=== PATIENT | female | born 1965 | race Caucasian/White ===

== ENCOUNTER 2023-02-18 08:34 | Outpatient (OUT) | payer OTHER, SELFPAY ==
[2023-02-18 09:07] LABS: Basophils Absolute Auto 0.1 10^3/uL (0.0-0.1); Basophils Percent Auto 1.4 % (0.2-2.0); Eosinophils Absolute Auto 0.3 10^3/uL (0.0-0.7); Hematocrit 37.1 % (36.0-48.0); Hemoglobin 11.5 g/dL (12.0-16.0); Immature Granulocytes Abs Auto 0.03 10^3/uL (0.00-0.03); Immature Granulocytes Pct Auto 0.4 % (0.0-0.5); Lymphocytes Absolute Auto 2.4 10^3/uL (1.2-3.8); Lymphocytes Percent Auto 32.1 % (20.5-60.0); Mean Corpuscular Hemoglobin 24.7 pg (26.7-34.0); Mean Corpuscular Volume 79.6 fL (81.0-99.0); Mean Platelet Volume 9.9 fL (9.5-13.5); Monocytes Absolute Auto 0.5 10^3/uL (0.3-0.8); Monocytes Percent Auto 6.7 % (1.7-12.0); Neutrophils Absolute Auto 4.1 10^3/uL (1.4-6.5); Neutrophils Percent Auto 55.4 % (43.0-75.0); Platelet Count 299 10^3/uL (150-450); Red Blood Count 4.66 10^6/uL (4.20-5.40); Red Cell Distribution Width 14.8 % (11.0-15.0); White Blood Count 7.3 10^3/uL (4.0-11.0)
[2023-02-18 09:17] LABS: Estimated Average Glucose 143 mg/dL; Glycohemoglobin A1C 6.6 % (4.5-6.2)
[2023-02-18 10:19] LABS: Alanine Aminotransferase 46 U/L (14-59); Albumin Globulin Ratio 1.1; Albumin Level 3.8 g/dL (3.4-5.0); Alkaline Phosphatase 74 U/L (46-116); Anion Gap 14.9; Aspartate Amino Transferase 27 U/L (15-37); BUN Creatinine Ratio 16.7; Bilirubin Total 0.3 mg/dL (0.2-1.0); Calcium 9.2 mg/dL (8.5-10.1); Carbon Dioxide 26.1 mmol/L (21.0-32.0); Chloride 104 mmol/L (98-107); Chol HDL Ratio 5.2; Cholesterol 192 mg/dL (<=200); Estimated GFR (African America >60 (>=60); Estimated GFR (Non-African Ame >60 (>=60); Free T3 2.81 pg/mL (2.18-3.98); Globulin 3.4 g/dL; Glucose 132 mg/dL (74-106); HDL Cholesterol 37 mg/dL (40-60); Sodium 141 mmol/L (136-145); Total Protein 7.2 g/dL (6.4-8.2); Triglycerides 110 mg/dL (<=150)
== END 2023-02-18 08:35 | disposition home or self-care (01) ==
PROVIDERS: PCP Family Medicine; Visit Provider Family Medicine
DX: Z00.00 Encounter for general adult medical examination without abnormal findings (principal)
CPT/HCPCS: 36415; 80053; 80061; 82306; 83036; 84436; 84443; 84481; 85025

== ENCOUNTER 2023-09-16 07:52 | Outpatient (OUT) | payer OTHER, SELFPAY ==
[2023-09-16 08:45] LABS: Basophils Absolute Auto 0.1 10^3/uL (0.0-0.1); Basophils Percent Auto 1.3 % (0.2-2.0); Eosinophils Absolute Auto 0.2 10^3/uL (0.0-0.7); Eosinophils Percent Auto 2.5 % (0.9-7.0); Hematocrit 39.4 % (36.0-48.0); Hemoglobin 11.6 g/dL (12.0-16.0); Immature Granulocytes Abs Auto 0.03 10^3/uL (0.00-0.03); Immature Granulocytes Pct Auto 0.5 % (0.0-0.5); Lymphocytes Absolute Auto 1.8 10^3/uL (1.2-3.8); Lymphocytes Percent Auto 29.6 % (20.5-60.0); Mean Corpuscular HGB Conc 29.4 g/dL (29.9-35.2); Mean Corpuscular Hemoglobin 23.7 pg (26.7-34.0); Mean Corpuscular Volume 80.4 fL (81.0-99.0); Mean Platelet Volume 10.6 fL (9.5-13.5); Monocytes Absolute Auto 0.6 10^3/uL (0.3-0.8); Monocytes Percent Auto 9.2 % (1.7-12.0); Neutrophils Absolute Auto 3.4 10^3/uL (1.4-6.5); Neutrophils Percent Auto 56.9 % (43.0-75.0); Platelet Count 224 10^3/uL (150-450); Red Cell Distribution Width 15.3 % (11.0-15.0)
[2023-09-16 08:46] LABS: Estimated Average Glucose 180 mg/dL; Glycohemoglobin A1C 7.9 % (4.5-6.2)
[2023-09-16 08:58] LABS: Alanine Aminotransferase 104 U/L (14-59); Albumin Globulin Ratio 0.9; Albumin Level 3.6 g/dL (3.4-5.0); Alkaline Phosphatase 155 U/L (46-116); Anion Gap 15.2; Aspartate Amino Transferase 123 U/L (15-37); BUN Creatinine Ratio 14.6; Bilirubin Total 0.4 mg/dL (0.2-1.0); Calcium 9.5 mg/dL (8.5-10.1); Carbon Dioxide 25.5 mmol/L (21.0-32.0); Chloride 102 mmol/L (98-107); Cholesterol 175 mg/dL (<=200); Estimated GFR (African America >60 (>=60); Estimated GFR (Non-African Ame >60 (>=60); Free T3 2.03 pg/mL (2.18-3.98); Globulin 3.9 g/dL; Glucose 219 mg/dL (74-106); HDL Cholesterol 25 mg/dL (40-60); Potassium 3.7 mmol/L (3.5-5.1); Sodium 139 mmol/L (136-145); Thyroid Stimulating Hormone 5.614 uIU/mL (0.358-3.740); Total Protein 7.5 g/dL (6.4-8.2); Triglycerides 202 mg/dL (<=150); VLDL CHOLESTEROL 40.4 mg/dL
== END 2023-09-16 07:53 | disposition home or self-care (01) ==
LOC: LAB 07:53
PROVIDERS: PCP Family Medicine; Visit Provider Family Medicine
DX: Z00.00 Encounter for general adult medical examination without abnormal findings (principal)
CPT/HCPCS: 36415; 80053; 80061; 82306; 83036; 83540; 84436; 84443; 84481; 85025

== ENCOUNTER 2023-10-03 10:03 | Outpatient (OUT) | payer OTHER, SELFPAY ==
--- NOTE | 2023-10-03 10:06 | US_ITS ---
The [address] [address] Patient Name: JUSTIN PUTNAM MRN: [id number] date: 1965 Sex: F Assigned Patient Location: US Current Patient Location: US Accession/Order Number: [id number] Exam Date: 10/03/2023 10:07 Report Date: 10/03/2023 12:22 At the request of: AMADO WRIGHT Procedure: US right upper quadrant EXAMINATION: US right upper quadrant HISTORY: Abnormal Findings Of Blood Chemistry R79.89 ; elevated liver function tests COMPARISON: No relevant comparison available. TECHNIQUE: CT abdomen 06/26/2019 FINDINGS: LIVER: Increased echogenicity suggestive of fatty infiltration. 3.9 cm lesion within anterior right hepatic lobe suspected represent a hemangioma; also seen on prior studies. PORTAL VEIN: Duplex Doppler demonstrates normal hepatopetal flow pattern with flow velocity averaging 35 cm/s. GALLBLADDER: Contains several prominent and a few small stones, largest is 2.3 cm. Irregular appearance of the wall with wall thickness at upper limits of normal, 3 mm. Negative sonographic Hernandez's sign. BILIARY: No abnormal dilation or stones seen within the duct. Common bile duct diameter is within normal limits. PANCREASE: No visible mass, abnormal atrophy, or duct dilation. KIDNEY: No hydronephrosis. No visible mass or stones. Size: 10.8 x 5.4 x 5.0 cm US/US right upper quadrant IMPRESSION: 1. Cholelithiasis without evidence of acute cholecystitis. 2. Suspect mild fatty infiltration of liver. Stable lesion favoring a hemangioma. Electronically authenticated by: CHELSIE ENGLAND Date: 10/03/2023 12:22
--- OUTSIDE RECORDS SUMMARY | 2023-10-03 10:22 | XMS_ITS | CCD ---
Author Organization [facility] Care Team Providers Care Sub Prior Name Role Phone DR AMADO TERRELL Attending Unavailable ADRIANA, DR FISCHER Primary Care Unavailable ADRIANA, DR FISCHER Admitting Unavailable ADRIANA, DR FISCHER Consulting Unavailable ADRIANA, DR FISCHER Primary Care Unavailable ADRIANA, DR FISCHER Admitting Unavailable ADRIANA, DR FISCHER Attending Unavailable ADRIANA, DR FISCHER Consulting Unavailable ADRIANA, DR FISCHER Primary Care Unavailable ADRIANA, DR FISCHER Admitting Unavailable ADRIANA, DR FISCHER Attending Unavailable MD Amado Terrell Primary Care Provider DO Elio Zamudio Attending Provider [phone] Amado Terrell Primary Care Unavailable Elio Zamudio Attending Unavailable Elio Zamudio Admitting Unavailable Maxime TRINH Attending Unavailable Amado Terrell Referring Unavailable Allergies Allergy Classification Reported Allergen(s) Allergy Type Date of Onset Reaction(s) Facility (2 sources) Aspirin; Translations: [aspirin] Drug Allergy 06-19-2014 [facility] Repository Problems Active Problems Problem Classification Problem Date Documented Date Episodic/Chronic Disorders of lipid metabolism (1 source) Pure hypercholesterolemia, unspecified; Translations: [PURE HYPERCHOLESTEROLEMIA UNSPEC] Onset: 2 Chronic Nutritional deficiencies (1 source) Vitamin D deficiency, unspecified; Translations: [VITAMIN D DEFICIENCY UNSPECIFIED] Onset: 2 Chronic Unclassified (1 source) CONTACT W/AND (SUSP) EXPOS COVID-19; Translations: [CONTACT W/AND (SUSP) EXPOS COVID-19] Onset: 2 Unclassified (1 source) Encounter for screening mammogram for malignant neoplasm of breast; Translations: [Encounter for screening mammogram for malignant neoplasm of breast] Onset: 3 Past or Other Problems Problem Classification Problem Date Documented Da te Episodic/Chronic Acute bronchitis (4 sources) Acute bronchitis, unspecified; Translations: [ACUTE BRONCHITIS UNSPECIFIED] Onset: 08-23-2021 Episodic Immunizations and screening for infectious disease (1 source) Encounter for screening for infectious and parasitic diseases, unspecified; Translations: [ENC SCREENING INF AND PARASITIC DZ UNS] Onset: 02-10-2022 Episodic Malaise and fatigue (1 source) Other fatigue; Translations: [OTHER FATIGUE] Onset: 02-10-2022 Episodic Results Test Name Value Interpretation Reference Range Facility Physician Referralon 024 Physician Referral [id number] #1.00TIFF Normal [facility] Physician Referral [id number] #1.00TIFF Normal [facility] MM screening mammo BI w/CADo n 11-11-2022 MM screening mammo BI w/CAD [facility] [address] Mammography Report Signed Patient: Justin Putnam MR#: [id number] : 1965 Acct:[id number] Age/Sex: 56 / F ADM Date: 11/11/22 Loc: [place] Room: Type: [facility] Attending Dr: Elio Zamudio DO Copies to: MD Elio Cervantes DO Ordering Provider: Elio Zamudio DO Date of Service: 11/11/22 MM/MM screening mammo BI w/CAD: Z12.31 BILATERAL Screening Full Field digital mammogram with 3-D imaging. Full field digital CC and MLO imaging performed. CAD utilized. COMPARISON: 07/08/2020 HISTORY: Annual screening BREAST COMPOSITION: The breast parenchyma is heterogeneously dense. BENIGN BREAST CALCIFICATIONS: Present VASCULAR CALCIFICATIONS: None DEVELOPING ARCHITECTURAL DISTORTION: None DEVELOPING BREAST NODULE: None DEVELOPING MALIGNANT CALCIFICATIONS: None AXILLARY LYMPH NODES: Normal POSTSURGICAL CHANGES: None MM/MM screening mammo BI w/CAD IMPRESSION: No mammographic evidence of malignancy. Routine follow-up recommended in one year. RESULT CODE: 2 Benign Findings(s) DENSITY CODE: 3 (approximately 51-75% glandular) FOLLOW UP: 1YR THE FALSE-NEGATIVE RATE OF MAMMOGRAPHY IS APPROXIMATELY 10%. IMAGING OF A PALPABLE ABNORMALITY MUST BE BASED ON CLINICAL GROUNDS. PATIENT WAS ENTERED INTO A REMINDER SYSTEM WITH A TARGET DUE DATE FOR THE NEXT MAMMOGRAM. Impression dictated by: Bro Gill M.D.11/11/2022 4:00 PM Dictation Location: [facility] Transcribed By: [facility] 11/11/22 1600 Dictated By: Bro Gill DO 11/11/22 1557 Signed By: 11/11/22 1600 [facility] T4 [facility]ORPon 02-09-2022 T4 [Mass/Vol] 6.2 ug/dL Normal 4.5-12.0 [facility] Comment on above: Performed By: #### T 4LC #### [facility] [address] [place] [address] Dr. Christiane Blancas CBC AUTO DIFFon 02-08-2022 BASO # 0.1 103/ul Normal 0.0-0.1 [facility] Comment on above: Performed By: #### C BC #### [facility] [address] [place] [address] Dr. Christiane Blancas Basophils/100 WBC (Bld) 1.6 % Normal 0.2-2.0 [facility] Comment on above: Performed By: #### C BC #### [facility] [address] [place] [address] Dr. Christiane Blancas EO # 0.1 103/ul Normal 0.0-0.7 [facility] Comment on above: Performed By: #### C BC #### [facility] [address] [place] [address] Dr. Christiane Blancas Eosinophils/100 WBC (Bld) 1.6 % Normal 0.9-7.0 [facility] Comment on above: Performed By: #### C BC #### [facility] [address] [place] [address] Dr. Christiane Blancas Erythrocyte distribution width (RBC) [Ratio] 15.7 % Critically high 11.0-15.0 [facility] Comment on above: Performed By: #### C BC #### [facility] [address] [place] [address] Dr. Christiane Blancas Hematocrit (Bld) [Volume fraction] 39.6 % Normal 36.0-48.0 [facility] Comment on above: Performed By: #### C BC #### [facility] [address] [place] [address] Dr. Christiane Blancas Hemoglobin (Bld) [Mass/Vol] 12.1 g/dL Normal 12.0-16.0 [facility] Comment on above: Performed By: #### C BC #### [facility] [address] [place] [address] Dr. Christiane Blancas IG # 0.02 10e3/ul Normal 0.00-0.03 [facility] Comment on above: Performed By: #### C BC #### [facility] [address] [place] [address] Dr. Christiane Blancas IG % 0.3 % Normal 0.0-0.5 [facility] Comment on above: Performed By: #### C BC #### [facility] [address] [place] [address] Dr. Christiane Blancas LYMPH # 1.7 103/ul Normal 1.2-3.8 [facility] Comment on above: Performed By: #### C BC #### [facility] [address] [place] [address] Dr. Christiane Blancas Lymphocytes/100 WBC (Bld) 30.4 % Normal 20.5-60.0 [facility] Comment on above: Performed By: #### C BC #### [facility] [address] [place] [address] Dr. Christiane Blancas MANUAL DIFF REQ NO Normal [facility] Comment on above: Performed By: #### C BC #### [facility] [address] [place] [address] Dr. Christiane Blancas MCH (RBC) [Entitic mass] 25.5 pg Critically low 26.7-34.0 [facility] Comment on above: Performed By: #### C BC #### [facility] [address] [place] [address] Dr. Christiane Blancas MCHC (RBC) [Mass/Vol] 30.6 g/dL Normal 29.9-35.2 [facility] Comment on above: Performed By: #### C BC #### [facility] [address] [place] [address] Dr. Christiane Blancas MCV (RBC) [Entitic vol] 83.4 fL Normal 81.0-99.0 [facility] Comment on above: Performed By: #### C BC #### [facility] [address] [place] [address] Dr. Christiane Blancas MONO # 0.4 103/ul Normal 0.3-0.8 [facility] Comment on above: Performed By: #### C BC #### [facility] [address] [place] [address] Dr. Christiane Blancas Monocytes/100 WBC (Bld) 7.5 % Normal 1.7-12.0 [facility] Comment on above: Performed By: #### C BC #### [facility] [address] [place] [address] Dr. Christiane Blancas NEUT # 3.4 103/ul Normal 1.4-6.5 [facility] Comment on above: Performed By: #### C BC #### [facility] [address] [place] [address] Dr. Christiane Blancas Neutrophils/100 WBC (Bld) 58.6 % Normal 43.0-75.0 [facility] Comment on above: Performed By: #### C BC #### [facility] [address] [place] [address] Dr. Christiane Blancas Platelet mean volume (Bld) [Entitic vol] 9.9 fL Normal 9.5-13.5 [facility] Comment on above: Performed By: #### C BC #### [facility] [address] [place] [address] Dr. Christiane Blancas PLT 251 103/ul Normal 150-450 [facility] Comment on above: Performed By: #### C BC #### [facility] [address] [place] [address] Dr. Christiane Blancas RBC 4.75 106/ul Normal 4.20-5.40 [facility] Comment on above: Performed By: #### C BC #### [facility] [address] [address] [address] Christiane Blancas WBC 5.7 103/ul Normal 4.0-11.0 [facility] Comment on above: Performed By: #### C BC #### [facility] [address] [address] [address] Christiane Blancas FREE T3on 02-08-2022 FREE T3 2.37 pg/mlL Normal 2.18-3.98 [facility] Comment on above: Performed By: #### F T3, CMP, LIPID, TSH #### [facility] [address] [address] [address] Christiane Blancas GLYCOHEMOGLOBIN A1Con 2021 ADA RECOMMENDATION SEE BELOW Normal [facility] Comment on above: Result Comment: ADA RECOMMENDED LIMIT 4.0 - 6.0 ADA THERAPEUTIC TARGET < 7.0 ACTION SUGGESTED > 7.0 Performed By: #### A 1C #### [facility] [address] [address] [address] Christiane Blancas Glucose [Mass/Vol] 123 mg/dL Normal [facility] Comment on above: Performed By: #### A 1C #### [facility] [address] [address] [address] Christiane Blancas HbA1c (Bld) [Mass fraction] 5.9 % Normal 4.5-6.2 [facility] Comment on above: Performed By: #### A 1C #### [facility] [address] [address] [address] Christiane Blancas LIPID PROFILEon 02-08-2022 CHOL-HDL RATIO NORM SEE BELOW Normal [facility] Comment on above: Result Comment: 3.3 - 4.4 LOW RISK 4.4 - 7.1 AVERAGE RISK 7.1 - 11.0 MODERATE RISK >11.0 HIGH RISK Performed By: #### F T3, CMP, LIPID, TSH #### [facility] [address] [address] [address] Christiane Blancas Cholesterol [Mass/Vol] 226 mg/dL Critically high <=200 [facility] Comment on above: Performed By: #### F T3, CMP, LIPID, TSH #### [facility] [address] [address] [address] Christiane Blancas Cholesterol in HDL [Mass/Vol] 36 mg/dL Critically low 40-60 [facility] Comment on above: Performed By: #### F T3, CMP, LIPID, TSH #### [facility] [address] [address] [address] Christiane Blancas Cholesterol in LDL [Mass/Vol] 150.6 mg/dL Normal [facility] Comment on above: Performed By: #### F T3, CMP, LIPID, TSH #### [facility] [address] [address] [address] Christiane Blancas Cholesterol.total/Cho lesterol in HDL [Mass ratio] 6.3 {ratio} Normal [facility] Comment on above: Performed By: #### F T3, CMP, LIPID, TSH #### [facility] [address] [address] [address] Christiane Blancas HDL NORMAL > or = 60 mg/dl - LOW CARDIOVASCULAR RISK <40 mg/dl - HIGH CARDIOVASCULAR RISK Normal [facility] Comment on above: Performed By: #### F T3, CMP, LIPID, TSH #### [facility] [address] [address] [address] Christiane Blancas LDL CALC NORMAL SEE BELOW Normal [facility] Comment on above: Result Comment: <100 mg/dl OPTIMAL 100 - 129 mg/dl NEAR OR ABOVE OPTIMAL 130 - 159 mg/dl BORDERLINE HIGH 160 - 189 mg/dl HIGH >190 mg/dl VERY HIGH Performed By: #### F T3, CMP, LIPID, TSH #### [facility] [address] [address] [address] Christiane Blancas Triglyceride [Mass/Vol] 197 mg/dL Critically high <=150 [facility] Comment on above: Performed By: #### F T3, CMP, LIPID, TSH #### [facility] [address] [address] [address] Christiane Blancas VLDL CALC 39.4 mg/dL Normal [facility] Comment on above: Performed By: #### F T3, CMP, LIPID, TSH #### [facility] [address] [address] [address] Christiane Blancas PROF 14(COMP METB)on 022 Albumin [Mass/Vol] 3.8 g/dL Normal 3.4-5.0 [facility] Comment on above: Performed By: #### F T3, CMP, LIPID, TSH #### [facility] [address] [place] [address] Dr. Christiane Blancas Albumin/Globulin [Mass ratio] 1.2 {ratio} Normal [facility] Comment on above: Performed By: #### F T3, CMP, LIPID, TSH #### [facility] [address] [place] [address] Dr. Christiane Blancas ALP [Catalytic activity/Vol] 66 U/L Normal 46-116 [facility] Comment on above: Performed By: #### F T3, CMP, LIPID, TSH #### [facility] [address] [place] [address] Dr. Christiane Blancas ALT [Catalytic activity/Vol] 44 U/L Normal 14-59 [facility] Comment on above: Performed By: #### F T3, CMP, LIPID, TSH #### [facility] [address] [place] [address] Dr. Christiane Blancas Anion gap [Moles/Vol] 13.8 mmol/L Normal [facility] Comment on above: Performed By: #### F T3, CMP, LIPID, TSH #### [facility] [address] [place] [address] Dr. Christiane Blancas AST [Catalytic activity/Vol] 26 U/L Normal 15-37 [facility] Comment on above: Performed By: #### F T3, CMP, LIPID, TSH #### [facility] [address] [place] [address] Dr. Christiane Blancas Bilirubin [Mass/Vol] 0.4 mg/dL Normal 0.2-1.0 [facility] Comment on above: Performed By: #### F T3, CMP, LIPID, TSH #### [facility] [address] [place], [place] [id number] Dr. Christiane Blancas Calcium [Mass/Vol] 8.9 mg/dL Normal 8.5-10.1 [facility] Comment on above: Performed By: #### F T3, CMP, LIPID, TSH #### [facility] [address] [address] [address] Christiane Blancas Chloride [Moles/Vol] 107 mmol/L Normal 98-107 [facility] Comment on above: Performed By: #### F T3, CMP, LIPID, TSH #### [facility] [address] [address] [address] Christiane Blancas CO2 [Moles/Vol] 27.1 mmol/L Normal 21.0-32.0 [facility] Comment on above: Performed By: #### F T3, CMP, LIPID, TSH #### [facility] [address] [place] [address] Dr. Christiane Blancas Creatinine [Mass/Vol] 0.92 mg/dL Normal 0.55-1.02 [facility] Comment on above: Performed By: #### F T3, CMP, LIPID, TSH #### [facility] [address] [place] [address] Dr. Christiane Blancas EGFR-AF YEMENI >60 Normal >=60 [facility] Comment on above: Performed By: #### F T3, CMP, LIPID, TSH #### [facility] [address] [place] [address] Dr. Christiane Blancas EGFR-NON AF YEMENI >60 Normal >=60 [facility] Comment on above: Performed By: #### F T3, CMP, LIPID, TSH #### [facility] [address] [place] [address] Dr. Christiane Blancas Globulin (S) [Mass/Vol] 3.2 g/dL Normal [facility] Comment on above: Performed By: #### F T3, CMP, LIPID, TSH #### [facility] [address] [place] [address] Dr. Christiane Blancas Glucose [Mass/Vol] 165 mg/dL Critically high 74-106 [facility] Comment on above: Performed By: #### F T3, CMP, LIPID, TSH #### [facility] [address] [place] [address] Dr. Christiane Blancas Potassium [Moles/Vol] 3.9 mmol/L Normal 3.5-5.1 [facility] Comment on above: Performed By: #### F T3, CMP, LIPID, TSH #### [facility] [address] [place] [address] Dr. Christiane Blancas Protein [Mass/Vol] 7.0 g/dL Normal 6.4-8.2 [facility] Comment on above: Performed By: #### F T3, CMP, LIPID, TSH #### [facility] [address] [place] [address] Dr. Christiane Blancas Sodium [Moles/Vol] 144 mmol/L Normal 136-145 [facility] Comment on above: Performed By: #### F T3, CMP, LIPID, TSH #### [facility] [address] [place] [address] Dr. Christiane Blancas Urea nitrogen [Mass/Vol] 12.0 mg/dL Normal 7.0-18.0 [facility] Comment on above: Performed By: #### F T3, CMP, LIPID, TSH #### [facility] [address] [place] [address] Dr. Christiane Blancas Urea nitrogen/Creatinine [Mass ratio] 13.0 mg/mg Normal [facility] Comment on above: Performed By: #### F T3, CMP, LIPID, TSH #### [facility] [address] [place] [address] Dr. Christiane Blancas TSHon 02-08-2022 TSH 1.752 uIU/mL Normal 0.358-3.740 [facility] Comment on above: Performed By: #### F T3, CMP, LIPID, TSH #### [facility] [address] [place] [address] Dr. Christiane Blancas VITAMIN D 25 OHon 02-08-2022 VIT D 25-OH 21.5 ng/mL Normal [facility] Comment on above: Performed By: #### V ITAD #### [facility] [address] [place] [address] Dr. Christiane Blancas VIT D RANGES SEE BELOW Normal [facility] Comment on above: Result Comment: <20 ng/mL Vit D deficient 20 - <30 ng/mL Vit D insufficient 30 - 100 ng/mL Vit D sufficient >100 ng/mL Potential Toxicity Performed By: #### V ITAD #### [facility] [address] [place] [address] Dr. Christiane Blancas Covid-19 PCR ([facility])on 08-13 SARS-CoV-2 (COVID-19) RNA CHRIS+probe Ql (Unsp spec) Not detected Normal NOT DETECTED [facility] Comment on above: Result Comment: This test is not yet approved or cleared by the [place] FDA. When there are no FDA-approved or cleared tests available, and other criteria are met, FDA can make tests available under an emergency access mechanism called an Emergency Use Authorization (EUA). The EUA for this test is supported by the [place] of Health and Human Service's (HHS's) declaration that circumstances exist to justify the emergency use of in vitro diagnostics for the detection and/or diagnosis of the virus that causes COVID-19. This EUA will remain in effect (meaning this test can be used) for the duration of the COVID-19 declaration justifying emergency of IVDs, unless it is terminated or revoked by FDA (after which the test may no longer be used). When diagnostic testing is negative, the possibility of a false negative should be considered in the context of a patient's recent exposures and the presence of clinical signs and symptoms consistent with SARS-CoV-2. Performed By: #### C VDTBH #### [facility] [address] [place] [address] Dr. Christiane Blancas INFLUENZA A AND B AGon 08-13 INFLUANEGH SEE BELOW Normal [facility] Comment on above: Result Comment: Nega tive for Flu A protein angiten. Infection due to Flu A cannot be ruled out. Flu A angiten in the sample may be below the detection limit of the test. Performed By: #### I NFLUAB #### [facility] [address] [place] [address] Dr. Christiane Blancas INFLUBNEGH SEE BELOW Normal [facility] Comment on above: Result Comment: Nega tive for Flu B protein antigen. Infection due to Flu B cannot be ruled out. Flu B antigen in the sample may be below the detection limit of the test. Performed By: #### I NFLUAB #### [facility] [address] [address] [address] Christiane Blancas INFLUENZA A AG Negative Normal NEGATIVE SEE COMMENT [facility] Comment on above: Performed By: #### I NFLUAB #### [facility] [address] [address] [address] Christiane Blancas INFLUENZA B AG Negative Normal NEGATIVE SEE COMMENT [facility] Comment on above: Performed By: #### I NFLUAB #### [facility] [address] [address] [address] Christiane Blancas INTERNAL CONTROLS Within Normal Limits Normal Wi thin Normal Limits [facility] Comment on above: Performed By: #### I NFLUAB #### [facility] [address] [address] [address] Christiane Blancas Encounters Encounter Date Encounter Type Care Provider Facility Start: 10-03-2023 ambulatory Maxime TRINH Facility :[facility] Start: 11-11-2022 End: 11-11-2022 ambulatory Amado Terrell Facility:[facility] Start: 11-11-2022 End: 11-11-2022 ambulatory MD Amado Terrell Work Phone: [facility] Work Phone: Start: 11-11-2022 End: 11-11-2022 Patient encounter procedure MD Amado Terrell Work Phone: [facility] Work Phone: Start: 06-29-[address] AMADO TERRELL Facility :[facility] Start: 02-10-2022 Encounter for genera l adult medical examination without abnormal findings DR AMADO TERRELL [facility] Start: 02-08-2022 End: 02-09-[address] AMADO TERRELL Facility:[facility] Start: 02-08-2022 End: 02-09-2022 Encounter for general adult medical examination without abnormal findings DR AMADO TERRELL Facility:[facility] Start: 08-23-2021 End: 08-23-[address] AMADO TERRELL Facility:[facility] Procedures Date Procedure Procedure Detail Performing Clinician Start: 11-11-2022 Screening mammograph y of bilateral breasts MD Amado Terrell Work Phone: Payers Date Payer Category Payer Medicaid [id number] 2022 Self-pay [id number] 1965 Unknown [id number] 2.16.84 [id number] 1965 Unknown [id number] 2.16.84 [id number] 1965 Unknown [id number] 2.16.84 [id number] 1965 Unknown [id number] 2.16.8 [id number] 1958 Self-pay [id number] 1958 Unknown [id number] Unknown Laurie BC/BS [id number] Unknown [id number] 2.16.8 [id number] Social History Date Type Detail Facility Tobacco smoking stat [facility] Unknown if ever smoked [facility] Work Phone: Start: 1965 Sex Assigned At Female F [facility] Evaluation note Note Date & Type Note Facility Evaluation note No assessment information availa ble [facility] Work Phone: Summary Purpose Family History No Family History Records FoundNo Family History Records FoundNo Family History Records Found Advance Directives No Advanced Directives Records Found Advance Directive Response Recorded Date/ Time Advance Directives No June 20, 2017 4:10pm Chief Complaint and Reason for Visit Chief Complaint Screening Additional Source Comments INFORMATION SOURCE (unrecogn ized section and content) DATE CREATED AUTHOR 06/29/2022 [facility] DATE CREATED AUTHOR AUTHOR'S ORGANIZ ATION 11/25/2022 [facility] DATE CREATED AUTHOR AUTHOR'S ORGANIZ ATION 10/02/2023 [facility] Care Teams (unrecognized sec tion and content) Team Status: Active Member Role Status Dates Amado Terrell MD Primary Care Provider Active Team Status: Inactive Member Role Status Dates Amado Terrell MD Primary Care Provider Active Elio Zamudio DO Attending Provider Active Goals (unrecognized section and content) Goals may be documented in a n alternate section FOR RECORDS PERTAINING TO PATIENTS WHO ARE OR HAVE BEEN ENROLLED IN A CHEMICAL DEPENDENCY/SUBSTANCEABUSE PROGRAM, SOME INFORMATION MAY BE OMITTED. This clinical summary was aggregated from multiple sources. Caution should be exercised in using it in the provision of clinical care. This summary normalizes information from multiple sources, and as a consequence, information in this document may materially change the coding, format and clinical context of patient data. In addition, data may be omitted in some cases. CLINICAL DECISIONS SHOULD BE BASED ON THE PRIMARY CLINICAL RECORDS. [facility] [facility] provides no warranty or guarantee of the accuracy or completeness of information in this document.
== END 2023-10-03 10:04 | disposition home or self-care (01) ==
LOC: US 10:03
PROVIDERS: PCP Family Medicine; Visit Provider Family Medicine
DX: R79.89 Other specified abnormal findings of blood chemistry (principal); K80.20 Calculus of gallbladder without cholecystitis without obstruction
CPT/HCPCS: 76705

== ENCOUNTER 2023-11-02 08:00 | Outpatient (OUT) | payer OTHER, SELFPAY ==
--- OUTSIDE RECORDS SUMMARY | 2023-11-02 08:06 | XMS_ITS ---
Patient Summarization (C-CDA 2.1 CCD) Created on: November 02, 2023 JUSTIN PUTNAM : 1965 Sex: Female Author Organization Sample organization Care Team Providers Care Senior Web Developer Name Role Phone DR AMADO TERRELL Attending [...] Care Provider DO Elio Zamudio Attending Provider [phone] Amado Terrell Primary Care Unavailable Elio Zamudio Attending Unavailable Elio Zamudio Admitting Unavailable Amado Terrell Primary Care Physician Maxime TRINH Attending Unavailable Amado Terrell Referring Unavailable Allergies Allergy Classification Reported Allergen(s) Allergy Type Date of Onset Reaction(s) Facility (2 sources) Aspirin; Translations: [aspirin] Drug Allergy 5 [facility] (1 source) Aspirin; Translations: [aspirin] Drug Allergy Anaphylaxis (disorder) [facility] Encounters Encounter Date Encounter Type Care Provider Facility Start: 10-03-2023 End: 10-04-2023 ambulatory Maxime TRINH Facility:[facility] Start: 10-03-2023 End: 10-03-2023 Patient encounter procedure Maxime TRINH [facility] Start: 11-11-2022 End: 11-11-2022 ambulatory Amado Terrell Facility:[facility] Start: 11-11-2022 End: 11-11-2022 ambulatory MD Amado Terrell Work Phone: [facility] Work Phone: Start: 11-11-2022 End: 11-11-2022 Patient encounter procedure MD Amado Terrell Work Phone: [facility] Work Phone: Start: 06-29-[address] AMADO TERRELL Facility :[facility] Start: 02-10-2022 Encounter for genera l adult medical examination without abnormal findings DR AMADO TERRELL [facility] Start: 02-08-2022 End: 02-09-[address] AMADO TERRELL Facility:[facility] Start: 02-08-2022 End: 02-09-2022 Encounter for general adult medical examination without abnormal findings DR AMADO TERRELL Facility:[facility] Start: 08-23-2021 End: 08-23-[address] AMADO TERRELL Facility:[facility] Immunizations Immunization Date Immunization Notes Care Provider [facility] 05-10-2021 SARS-CoV-2 (COVID-19 ) mRNA-1273 vaccine Maxime NIXDeng [facility] 09-02-2020 SARS-CoV-2 (COVID-19 ) mRNA-1273 vaccine Maxime NIXDeng [facility] 07-27-2020 SARS-CoV-2 (COVID-19 ) mRNA-1273 vaccine Maxime NIXDeng [facility] Medications Current Medications Medication Drug Class(es) Dates Sig (Normalized) Sig (Original) glimepiride 1 mg oral tablet (1 source) Sulfonylurea Start: 09-20-2023 take 1 tablet by mouth once daily glimepiride 1 mg Tab 1 mg = 1 tab(s), Oral, Daily, Refills(s) 0 Start Date: 09/20/23 Status: Ordered liothyronine sodium 0.005 mg oral tablet (1 source) l-Triiodothyronine Start: 10-03-2023 take 2 tablets by mouth once daily liothyronine 5 mcg Tab 10 mcg = 2 tab(s), Oral, Daily, Refills(s) 0 Start Date: 10/03/23 Status: Ordered metFORMIN hydrochloride 500 mg oral tablet (1 source) Biguanide Start: 01-08-2021 take 1 tablet by mouth twice daily metformin 500 mg Tab 500 mg = 1 tab(s), Oral, BID, Refills(s) 0 Start Date: 01/08/21 Status: Ordered OLANZapine 2.5 mg oral tablet (1 source) Atypical Antipsychotic Start: 09-20-2023 take 1 tablet by mouth twice daily ZyPREXA 2.5 mg Tab 2.5 mg = 1 tab(s), Oral, BID, Refills(s) 0 Start Date: 09/20/23 Status: Ordered pantoprazole 40 mg delayed release oral tablet (1 source) Proton Pump Inhibitor Start: 09-20-2023 take 1 tablet by mouth once daily Protonix 40 mg Tab-DR 40 mg = 1 tab(s), Oral, Daily, Refills(s) 0 Start Date: 09/20/23 Status: Ordered simvastatin 20 mg oral tablet (1 source) HMG-CoA Reductase Inhibitor Start: 09-20-2023 take 1 tablet by mouth once daily in the evening simvastatin 20 mg Tab 20 mg = 1 tab(s), Oral, qPM, Refills(s) 0 Start Date: 09/20/23 Status: Ordered 24 hr venlafaxine 75 mg extended release oral capsule (2 sources) Serotonin and Norepinephrine Reuptake Inhibitor Start: 10-03-2023 take 1 capsule by mouth once daily venlafaxine 75 mg Cap-ER 75 mg = 1 cap(s), Oral, Daily, Refills(s) 0 Start Date: 10/03/23 Status: Ordered Start: 01-08-2021 take 1 capsule by [facility] once daily venlafaxine 150 mg Cap-ER 150 mg = 1 cap(s), Oral, Daily, Refills(s) 0 Start Date: 01/08/21 Status: Ordered Ventolin HFA 90 mcg/inh Aerosol (1 source) Start: 01-08-2021 take 2 puff(s) by inhalation four times daily Ventolin HFA 90 mcg/inh Aerosol 2 puff(s), Inhalation, QID sh, Refill(s) 0 Start Date: 01/08/21 Status: Ordered Vitamin D2 2000 intl units oral capsule (1 source) Start: 09-20-2023 take 1 capsule by mouth once daily Vitamin D2 2000 intl units oral capsule 50 mcg = 1 cap(s), Oral, Daily, Refills(s) 0 Start Date: 09/20/23 Status: Ordered Payers Date Payer Category Payer Medicaid [id number] 2022 Self-pay [id number] 1965 Unknown [id number] [id number] 1965 Unknown [id number] 2.16.84 [id number] 1965 Unknown [id number] 2.16.84 [id number] 1965 Unknown [id number] 2.16.8 [id number] 1958 Self-pay [id number] 1958 Unknown [id number] Unknown Laurie BC/GAYATRI [id number] Unknown [id number] [id number] [id number] Problems Active Problems Problem Classification Problem Date Documented Date Episodic/Chronic Anxiety disorders (1 source) Anxiety 09-20-2023 Chronic Asthma (1 source) Asthma 01-08-2021 Chronic Biliary tract disease (1 source) Biliary calculus 01-08-2021 Episodic Diabetes mellitus without complication (1 source) Diabetes mellitus 01-08-2021 Chronic Disorders of lipid metabolism (2 sources) Pure hypercholesterolemia, unspecified; Translations: [Pure hypercholesterolemia] Onset: 02-10-2022 01-08-2021 Chronic Esophageal disorders (3 sources) Gastroesophageal reflux disease without esophagitis; Translations: [Gastro-esophageal reflux disease without esophagitis] Onset: 10-03-2023 Chronic Headache; including migraine (1 source) Migraine 01-08-2021 Chronic Mood disorders (1 source) Bipolar disorder 01-08-2021 Chronic Nutritional deficiencies (1 source) Vitamin D deficiency, unspecified; Translations: [VITAMIN D DEFICIENCY UNSPECIFIED] Onset: 02-10-2022 Chronic Other circulatory disease (1 source) Feeling of lump in throat 10-03-2023 Episodic Other nutritional; endocrine; and metabolic disorders (1 source) Body mass index 25-29 - overweight 01-12-2021 Episodic Other nutritional; endocrine; and metabolic disorders (1 source) Overweight 09-20-2023 Episodic Other upper respiratory disease (1 source) Allergic rhinitis 01-08-2021 Chronic Residual codes; unclassified (1 source) Insomnia 09-20-2023 Episodic Unclassified (1 source) CONTACT W/AND (SUSP) EXPOS COVID-19; Translations: [CONTACT W/AND (SUSP) EXPOS COVID-19] Onset: 08-25-2021 Unclassified (1 source) Encounter for screening mammogram for malignant neoplasm of breast; Translations: [Encounter for screening mammogram for malignant neoplasm of breast] Onset: 11-11-2022 Unclassified (1 source) Patient encounter status 01-12-2021 Past or Other Problems Problem Classification Problem [...] fatigue; Translations: [OTHER FATIGUE] Onset: 02-10-2022 Episodic Unclassified (1 source) Foreign body sensation; Translations: [Foreign body sensation, throat] Onset: 10-03-2023 Procedures Date Procedure Procedure Detail Performing Clinician Start: 11-11-2022 Screening mammograph y of bilateral breasts MD Amado Terrell Work Phone: Start: 01-27-2021 Colonoscopy Maxime DAVENPORT Appendectomy Maxime TRINH section Maxime Vilchis section Maxime Vilchis Comment on above: x 2 Results Test Name Value Interpretation Reference Range Facility Consent for Procedure/Surger yon 10-05-2023 Consent for Procedure/Surgery [id number]#[id number] [facility] Physician Referralon 024 Physician Referral [id number] F [facility] Facesheeton 10-04-2023 Facesheet [id number] [id number]#[id number] FF [facility] Ambulatory Visit Summaryon 0 10-03-2023 Ambulatory Visit Summary JUSTIN PUTNAM :1965 Visit Date:10/03/2023 Ambulatory Visit Instructions Your Care Team Attending Physician - ZIGGY ROWAN, Maxime Vo Primary Care Physician - Amado Terrell MD Referring Physician - Amado Terrell MD This Is Your Medications List Contact prescribing physician if questions or concerns albuterol (Ventolin HFA 90 mcg/inh Aerosol) ergocalciferol (Vitamin D2 2000 intl units oral capsule) glimepiride (glimepiride 1 mg Tab) liothyronine (liothyronine 5 mcg Tab) metformin (metformin 500 mg Tab) olanzapine (ZyPREXA 2.5 mg Tab) pantoprazole (Protonix 40 mg Tab-DR) simvastatin (simvastatin 20 mg Tab) venlafaxine (venlafaxine 150 mg Cap-ER) venlafaxine (venlafaxine 75 mg Cap-ER) Procedures Performed Colonoscopy (01/27/2021), Appendectomy, section, section. Discharge Vitals Heart Rate (Peripheral) 72 Blood Pressure 122/80 Height 162.5 cm Height 64 in Weight 76.5 kg Weight 168.3 lb BMI 28.97 Medications What How Much When Instructions Unchanged albuterol (Ventolin HFA 90 mcg/ inh Aerosol) 2 Puffs Inhalation 4 times a day as needed for sh Contact prescribing physician if questions or concerns Unchanged ergocalciferol (Vitamin D2 2000 intl units oral capsule) 1 Capsules By Mouth Every day Contact prescribing physician if questions or concerns Unchanged glimepiride (glimepiride 1 mg Tab) 1 Tablets By Mouth Every day Contact prescribing physician if questions or concerns Unchanged liothyronine (liothyronine 5 mcg Tab) 2 Tablets By Mouth Every day Contact prescribing physician if questions or concerns Unchanged metformin (metformin 500 mg Tab) 1 Tablets By Mouth 2 times a day Contact prescribing physician if questions or concerns Unchanged olanzapine (ZyPREXA 2.5 mg Tab) 1 Tablets By Mouth 2 times a day Contact prescribing physician if questions or concerns Unchanged pantoprazole (Protonix 40 mg Tab-DR) 1 Tablets By Mouth Every day Contact prescribing physician if questions or concerns Unchanged simvastatin (simvastatin 20 mg Tab) 1 Tablets By Mouth Once a day (in the evening) Contact prescribing physician if questions or concerns Unchanged venlafaxine (venlafaxine 150 mg Cap-ER) 1 Capsules By Mouth Every day Contact prescribing physician if questions or concerns Unchanged venlafaxine (venlafaxine 75 mg Cap-ER) 1 Capsules By Mouth Every day Contact prescribing physician if questions or concerns Allergies aspirin (Anaphylaxis) Problems Ongoing - Any problem that you are currently receiving treatment for. Allergic rhinitis Anxiety Asthma Bipolar disorder BMI 28.0-28.9,adult Cholelithiasis Diabetes Gastroesophageal reflux disease Insomnia Migraines Overweight Pure hypercholesterolemia Screening for malignant neoplasm of colon Patient Survey You may receive a survey via text or e-mail asking about your office visit. Please share your experience with us by completing your survey. We appreciate your feedback and thank you for choosing us for your care. [facility] Physician Referralon 024 Physician Referral [id number] F [facility] Physician Referral [id number] [id number] F [facility] MM screening mammo BI w/CADo n 11-11-2022 MM screening mammo BI w/CAD [facility] [address] [place] [id number] Mammography Report Signed Patient: Justin Putnam MR#: [id number] : 1965 Acct:[id number] Age/Sex: 56 / F ADM Date: 11/11/22 Loc: [place] Room: Type: [facility] CLI Attending Dr: Elio Zamudio DO Copies to: [...] Bro Gill M.D.11/11/2022 4:00 PM Dictation Location: [facility] Transcribed By: [facility] 11/11/22 1600 Dictated By: Bro Gill DO 11/11/22 1557 Signed By: 11/11/22 1600 [facility] T4 LABCORPon 02-09-2022 T4 [Mass/Vol] 6.2 ug/dL Normal 4.5-12.0 [facility] Comment on above: Performed By: #### T 4LC #### [facility] [address] [address] [address] Christiane Blancas CBC AUTO DIFFon 02-08-2022 BASO # 0.1 103/ul Normal 0.0-0.1 [facility] Comment on above: Performed By: #### C BC #### [facility] [address] [address] [address] Christiane Blancas Basophils/100 WBC (Bld) 1.6 % Normal 0.2-2.0 [facility] Comment on above: Performed By: #### C BC #### [facility] [address] [place] [address] Dr. Christiane Blancas EO # 0.1 103/ul Normal 0.0-0.7 [facility] Comment on above: Performed By: #### C BC #### [facility] [address] [place] [address] Dr. Christiane Blancas Eosinophils/100 WBC (Bld) 1.6 % Normal 0.9-7.0 [facility] Comment on above: Performed By: #### C BC #### [facility] [address] [place] [address] Dr. Christiane Blancas Erythrocyte distribution width (RBC) [Ratio] 15.7 % Critically high 11.0-15.0 [facility] Comment on above: Performed By: #### C BC #### [facility] [address] [place] [address] Dr. Christiane Blancas Hematocrit (Bld) [Volume fraction] 39.6 % Normal 36.0-48.0 [facility] Comment on above: Performed By: #### C BC #### [facility] [address] [place] [address] Dr. Christiane Blancas Hemoglobin (Bld) [Mass/Vol] 12.1 g/dL Normal 12.0-16.0 [facility] Comment on above: Performed By: #### C BC #### [facility] [address] [place] [address] Dr. Christiane Blancas IG # 0.02 10e3/ul Normal 0.00-0.03 [facility] Comment on above: Performed By: #### C BC #### [facility] [address] [place] [address] Dr. Christiane Blancas IG % 0.3 % Normal 0.0-0.5 [facility] Comment on above: Performed By: #### C BC #### [facility] [address] [place] [address] Dr. Christiane Blancas LYMPH # 1.7 103/ul Normal 1.2-3.8 [facility] Comment on above: Performed By: #### C BC #### [facility] [address] [place] [address] Dr. Christiane Blancas Lymphocytes/100 WBC (Bld) 30.4 % Normal 20.5-60.0 [facility] Comment on above: Performed By: #### C BC #### [facility] [address] [place] [address] Dr. Christiane Blancas MANUAL DIFF REQ NO Normal [facility] Comment on above: Performed By: #### C BC #### [facility] [address] [place] [address] Dr. Christiane Blancas MCH (RBC) [Entitic mass] 25.5 pg Critically low 26.7-34.0 [facility] Comment on above: Performed By: #### C BC #### [facility] [address] [place] [address] Dr. Christiane Blancas MCHC (RBC) [Mass/Vol] 30.6 g/dL Normal 29.9-35.2 [facility] Comment on above: Performed By: #### C BC #### [facility] [address] [place] [address] Dr. Christiane Blancas MCV (RBC) [Entitic vol] 83.4 fL Normal 81.0-99.0 [facility] Comment on above: Performed By: #### C BC #### [facility] [address] [place] [address] Dr. Christiane Blancas MONO # 0.4 103/ul Normal 0.3-0.8 [facility] Comment on above: Performed By: #### C BC #### [facility] [address] [place] [address] Dr. Christiane Blancas Monocytes/100 WBC (Bld) 7.5 % Normal 1.7-12.0 [facility] Comment on above: Performed By: #### C BC #### [facility] [address] [place] [address] Dr. Christiane Blancas NEUT # 3.4 103/ul Normal 1.4-6.5 [facility] Comment on above: Performed By: #### C BC #### [facility] [address] [address] [address] Christiane Blancas Neutrophils/100 WBC (Bld) 58.6 % Normal 43.0-75.0 [facility] Comment on above: Performed By: #### C BC #### [facility] [address] [place] [address] Dr. Christiane Blancas Platelet mean volume (Bld) [Entitic vol] 9.9 fL Normal 9.5-13.5 [facility] Comment on above: Performed By: #### C BC #### [facility] [address] [place] [address] Dr. Christiane Blancas PLT 251 103/ul Normal 150-450 [facility] Comment on above: Performed By: #### C BC #### [facility] [address] [place] [address] Dr. Christiane Blancas RBC 4.75 106/ul Normal 4.20-5.40 [facility] Comment on above: Performed By: #### C BC #### [facility] [address] [address] [address] Christiane Blancas WBC 5.7 103/ul Normal 4.0-11.0 [facility] Comment on above: Performed By: #### C BC #### [facility] [address] [place] [address] Dr. Christiane Blancas FREE T3on 02-08-2022 FREE T3 2.37 pg/mlL Normal 2.18-3.98 [facility] Comment on above: Performed By: #### F T3, CMP, LIPID, TSH #### [facility] [address] [place] [address] Dr. Christiane Blancas GLYCOHEMOGLOBIN A1Con 2021 ADA RECOMMENDATION SEE BELOW Normal [facility] Comment on above: Result Comment: ADA RECOMMENDED LIMIT 4.0 - 6.0 ADA THERAPEUTIC TARGET < 7.0 ACTION SUGGESTED > 7.0 Performed By: #### A 1C #### [facility] [address] [place] [address] Dr. Christiane Blancas Glucose [Mass/Vol] 123 mg/dL Normal [facility] Comment on above: Performed By: #### A 1C #### [facility] [address] [address] [address] Christiane Blancas HbA1c (Bld) [Mass fraction] 5.9 % Normal 4.5-6.2 [facility] Comment on above: Performed By: #### A 1C #### [facility] [address] [address] [address] Christiane Blancas LIPID PROFILEon 02-08-2022 CHOL-HDL RATIO NORM SEE BELOW Normal [facility] Comment on above: Result Comment: 3.3 - 4.4 LOW RISK 4.4 - 7.1 AVERAGE RISK 7.1 - 11.0 MODERATE RISK >11.0 HIGH RISK Performed By: #### F T3, CMP, LIPID, TSH #### [facility] [address] [place] [address] Dr. Christiane Blancas Cholesterol [Mass/Vol] 226 mg/dL Critically high <=200 [facility] Comment on above: Performed By: #### F T3, CMP, LIPID, TSH #### [facility] [address] [place] [address] Dr. Christiane Blancas Cholesterol in HDL [Mass/Vol] 36 mg/dL Critically low 40-60 [facility] Comment on above: Performed By: #### F T3, CMP, LIPID, TSH #### [facility] [address] [place] [address] Dr. Christiane Blancas Cholesterol in LDL [Mass/Vol] 150.6 mg/dL Normal [facility] Comment on above: Performed By: #### F T3, CMP, LIPID, TSH #### [facility] [address] [place] [address] Dr. Christiane Blancas Cholesterol.total/C holesterol in HDL [Mass ratio] 6.3 {ratio} Normal [facility] Comment on above: Performed By: #### F T3, CMP, LIPID, TSH #### [facility] [address] [place] [address] Dr. Christiane Blancas HDL NORMAL > or = 60 mg/dl - LO W CARDIOVASCULAR RISK <40 mg/dl - HIGH CARDIOVASCULAR RISK Normal [facility] Comment on above: Performed By: #### F T3, CMP, LIPID, TSH #### [facility] [address] [address] [address] Christiane Blancas LDL CALC NORMAL SEE BELOW Normal [facility] Comment on above: Result Comment: <100 mg/dl OPTIMAL 100 - 129 mg/dl NEAR OR ABOVE OPTIMAL 130 - 159 mg/dl BORDERLINE HIGH 160 - 189 mg/dl HIGH >190 mg/dl VERY HIGH Performed By: #### F T3, CMP, LIPID, TSH #### [facility] [address] [address] [address] Christiane Blancas Triglyceride [Mass/Vol] 197 mg/dL Critically high <=150 [facility] Comment on above: Performed By: #### F T3, CMP, LIPID, TSH #### [facility] [address] [address] [address] Christiane Blancas VLDL CALC 39.4 mg/dL Normal [facility] Comment on above: Performed By: #### F T3, CMP, LIPID, TSH #### [facility] [address] [address] [address] Christiane Blancas PROF 14(COMP METB)on 022 Albumin [Mass/Vol] 3.8 g/dL Normal 3.4-5.0 [facility] Comment on above: Performed By: #### F T3, CMP, LIPID, TSH #### [facility] [address] [address] [address] Christiane Blancas Albumin/Globulin [Mass ratio] 1.2 {ratio} Normal [facility] Comment on above: Performed By: #### F T3, CMP, LIPID, TSH #### [facility] [address] [address] [address] Christiane Blancas ALP [Catalytic activity/Vol] 66 U/L Normal 46-116 [facility] Comment on above: Performed By: #### F T3, CMP, LIPID, TSH #### [facility] [address] [address] [address] Christiane Blancas ALT [Catalytic activity/Vol] 44 U/L Normal 14-59 [facility] Comment on above: Performed By: #### F T3, CMP, LIPID, TSH #### [facility] [address] [address] [address] Christiane Blancas Anion gap [Moles/Vol] 13.8 mmol/L Normal [facility] Comment on above: Performed By: #### F T3, CMP, LIPID, TSH #### [facility] [address] [address] [address] Christiane Blancas AST [Catalytic activity/Vol] 26 U/L Normal 15-37 [facility] Comment on above: Performed By: #### F T3, CMP, LIPID, TSH #### [facility] [address] [address] [address] Christiane Blancas Bilirubin [Mass/Vol] 0.4 mg/dL Normal 0.2-1.0 [facility] Comment on above: Performed By: #### F T3, CMP, LIPID, TSH #### [facility] [address] [address] [address] Christiane Blancas Calcium [Mass/Vol] 8.9 mg/dL Normal 8.5-10.1 [facility] Comment on above: Performed By: #### F T3, CMP, LIPID, TSH #### [facility] [address] [address] [address] Christiane Blancas Chloride [Moles/Vol] 107 mmol/L Normal 98-107 [facility] Comment on above: Performed By: #### F T3, CMP, LIPID, TSH #### [facility] [address] [address] [address] Christiane Blancas CO2 [Moles/Vol] 27.1 mmol/L Normal 21.0-32.0 [facility] Comment on above: Performed By: #### F T3, CMP, LIPID, TSH #### [facility] [address] [address] [address] Christiane Blancas Creatinine [Mass/Vol] 0.92 mg/dL Normal 0.55-1.02 [facility] Comment on above: Performed By: #### F T3, CMP, LIPID, TSH #### [facility] [address] [address] [address] Christiane Blancas EGFR-AF [facility] >60 Normal >=60 [facility] Comment on above: Performed By: #### F T3, CMP, LIPID, TSH #### [facility] [address] [address] [address] Christiane Blancas EGFR-NON AF [facility] >60 Normal >=60 [facility] Comment on above: Performed By: #### F T3, CMP, LIPID, TSH #### [facility] [address] [address] [address] Christiane Blancas Globulin (S) [Mass/Vol] 3.2 g/dL Normal [facility] Comment on above: Performed By: #### F T3, CMP, LIPID, TSH #### [facility] [address] [place] [address] Dr. Christiane Blancas Glucose [Mass/Vol] 165 mg/dL Critically high 74-106 [facility] Comment on above: Performed By: #### F T3, CMP, LIPID, TSH #### [facility] [address] [place] [address] Dr. Christiane Blancas Potassium [Moles/Vol] 3.9 mmol/L Normal 3.5-5.1 [facility] Comment on above: Performed By: #### F T3, CMP, LIPID, TSH #### [facility] [address] [place] [address] Dr. Christiane Blancas Protein [Mass/Vol] 7.0 g/dL Normal 6.4-8.2 [facility] Comment on above: Performed By: #### F T3, CMP, LIPID, TSH #### [facility] [address] [place] [address] Dr. Christiane Blancas Sodium [Moles/Vol] 144 mmol/L Normal 136-145 [facility] Comment on above: Performed By: #### F T3, CMP, LIPID, TSH #### [facility] [address] [place] [address] Dr. Christiane Blancas Urea nitrogen [Mass/Vol] 12.0 mg/dL Normal 7.0-18.0 [facility] Comment on above: Performed By: #### F T3, CMP, LIPID, TSH #### [facility] [address] [address] [address] Christiane Blancas Urea nitrogen/Creatinine [Mass ratio] 13.0 mg/mg Normal [facility] Comment on above: Performed By: #### F T3, CMP, LIPID, TSH #### [facility] [address] [address] [address] Christiane Blancas TSHon 02-08-2022 TSH 1.752 uIU/mL Normal 0.358-3.740 [facility] Comment on above: Performed By: #### F T3, CMP, LIPID, TSH #### [facility] [address] [address] [address] Christiane Blancas VITAMIN D 25 OHon 02-08-2022 VIT D 25-OH 21.5 ng/mL Normal [facility] Comment on above: Performed By: #### V ITAD #### [facility] [address] [place] [address] Dr. Christiane Blancas VIT D RANGES SEE BELOW Normal [facility] Comment on above: Result Comment: <20 ng/mL Vit D deficient 20 - <30 ng/mL Vit D insufficient 30 - 100 ng/mL Vit D sufficient >100 ng/mL Potential Toxicity Performed By: #### V ITAD #### [facility] [address] [place] [address] Dr. Christiane Blancas Covid-19 PCR (CVDTB)on 08-13 SARS-CoV-2 (COVID-19) RNA CHRIS+probe Ql (Unsp spec) Not detected Normal NOT DETECTED [facility] Comment on above: Result Comment: This test is not yet approved or cleared by the [place] FDA. When there are no FDA-approved or cleared tests available, and other criteria are met, FDA can make tests available under an emergency access mechanism called an Emergency Use Authorization (EUA). The EUA for this test is supported by the Computer [employer] Grinder of Health and Human Service's (HHS's) declaration [...] consistent with SARS-CoV-2. Performed By: #### C VDTB #### [facility] [address] [place] [address] Dr. Christiane Blancas INFLUENZA A AND B AGon 08-[facility] Normal [facility] Comment on above: Result Comment: Nega tive for Flu A protein angiten. Infection due to Flu A cannot be ruled out. Flu A angiten in the sample may be below the detection limit of the test. Performed By: #### I NFLUAB #### [facility] [address] [place] [address] Dr. Christiane Blancas [facility] BELOW Normal [facility] Comment on above: Result Comment: Nega tive for Flu B protein antigen. Infection due to Flu B cannot be ruled out. Flu B antigen in the sample may be below the detection limit of the test. Performed By: #### I NFLUAB #### [facility] [address] [place] [address] Dr. Christiane Blancas INFLUENZA A AG Negative Normal NEGATIVE SEE COMMENT [facility] Comment on above: Performed By: #### I NFLUAB #### [facility] [address] [place] [address] Dr. Christiane Blancas INFLUENZA B AG Negative Normal NEGATIVE SEE COMMENT [facility] Comment on above: Performed By: #### I NFLUAB #### [facility] [address] [place] [address] Dr. Christiane Blancas INTERNAL CONTROLS Within Normal Limits Normal Wi thin Normal Limits [facility] Comment on above: Performed By: #### I NFLUAB #### [facility] [address] [place] [address] Dr. Christiane Blancas Social History Date Type Detail Facility Start: 10-03-2023 Tobacco smoking status Ex-smoker (fi nding) [facility] Start: 1965 Sex Assigned At Female Kaela [facility] Tobacco smoking stat us MEIS Unknown if ever smoked [facility] Work Phone: Tobacco smoking status Never [facility] Sex Assigned At Female [facility] Vital Signs Date Time Vital Sign Value Performing Clinician Santino jarvis 10-03-2023 13:55-0400 Blood Pressure Location Maxime NILL [facility] 10-03-2023 13:55-0400 Diastolic blood pressure 80 mm[Hg] Maxime NILL [facility] 10-03-2023 13:55-0400 Heart rate 72 /min Maxime NILL [facility] 10-03-2023 13:55-0400 Systolic blood pressure 122 mm[Hg] Maxime NIXL [facility] Functional Status Date Assessment Result Facility 10-03-2023 Functional Status N/A [facility] Clinical Note 10-03-2023 Note Date & Type Note Facility 10-03-2023 Note Chief Complaint consultation for GERD HPI Staff 57 year old female presents on consultation from Dr. Terrell for GERD. Reports noting heartburn for several months. Tums, Pepto and Prilosec have been ineffective. Prilosec was changed to Protonix 40mg daily on 09/11; this has improved symptoms. She now reports noting a globus sensation and feels she as though she swallows past something. History of Present Illness 57 yo female with h/o asthma, DMII, hypercholesterolemia, bipolar d/o, referred for refractory GERD and dysphagia; patient reports several year h/o GERD with burning pain radiating into chest, regurgitation, and globus sensation; no food getting stuck, put feels likely it's difficult to swallow at times; no wt loss or early satiety; initially used over the counter antacids, the Prilosec; recently switched to Protonix daily, with some improvement; no previous EGD; no asa or NSAID use; former smoker; fmhx of esophageal cancer in patient's father. Review of Systems PHQ Score Initial Depression Screen Score: 0 SCORE ROS - Provider Constitutional: no fever, no sweats, no weight loss. Eyes: no glasses, no blurred vision, no visual loss. ENMT: no dentures, no hoarseness, yes swallowing difficulties, no hearing loss, no ear infection(s), no nose bleeds. Cardiovascular: normal blood pressure, no chest pain, regular heartbeat, no heart murmur. Respiratory: no shortness of breath, no cough, no asthma, no wheezing. Gastrointestinal: no nausea, no vomiting, no diarrhea, no constipation, no blood in stool, no change in bowel habits, no abdominal pain, no hepatitis. Genitourinary: no kidney stones, no urine infection, no dysuria. Musculoskeletal: no pain, no weakness. Skin: no changing moles, no rash, no skin lumps. Neurologic: no seizures, no epilepsy, no headache. Psychiatric: no emotional or psychiatric problem. Heme/Lymph: no bleeding problems, no anemia, no blood clots, no transfusions. Allergy/Immunologic: no swollen lymph nodes/glands, no IV drug abuse. Other: Additional ROS info: Except as noted in the above Review of Systems and in the History of Present Illness, all other systems have been reviewed and are negative or noncontributory. Physical Exam Vitals & Measurements HR: 72(Peripheral) BP: 122/80 HT: 64 in HT: 162.5 cm WT: 76.5 kg WT: 168.3 lb BMI: 28.97 HEENT: normal conjunctiva, sclera clear, no scleral icterus, EOM intact, PERRLA, oral mucosa moist without lesions. Neck: trachea midline, no mass, symmetric, no thyromegaly or nodules, no adenopathy Respiratory: lungs CTA, respirations non labored. Cardiovascular: regular rate and rhythm, no murmur, no pedal edema or varicosities. Gastrointestinal: soft, non distended, mild tenderness, epigastrium no masses, no palpable hernias, diastasis recti no, no hepatosplenomegaly; normal bs Lymphatic: no cervical adenopathy, no axillary adenopathy, no inguinal adenopathy. Musculoskeletal: normal gait, digits and nails without infection, nodes, cyanosis, clubbing. Skin: no rashes, no lesions, no ulcers, no subcutaneous nodules, induration. Psychiatric/Neuro: oriented to time, place, person, judgement normal, affect appropriate for age, insight intact, no focal deficits. Tests: , review of old records completed , Discussed surgical options, risks, and possible complications with patient. Assessment/Plan 1. Chronic GERD (K21.9: Gastro-esophageal reflux disease without esophagitis) plan EGD under anesthesia for further evaluation, informed consent obtained. 2. Globus sensation (R09.A2: Foreign body sensation, throat) see #1 Follow-up No qualifying data available Problem List/Past Medical History Ongoing Allergic rhinitis Anxiety Asthma Bipolar disorder BMI 28.0-28.9,adult Cholelithiasis Chronic GERD Diabetes Gastroesophageal reflux disease Globus sensation Insomnia Migraines Overweight Pure hypercholesterolemia Screening for malignant neoplasm of colon Historical No qualifying data Procedure/Surgical History Colonoscopy (01/27/2021), Appendectomy, section, section. Medications glimepiride 1 mg Tab, 1 mg= 1 tab(s), Oral, Daily liothyronine 5 mcg Tab, 10 mcg= 2 tab(s), Oral, Daily metformin 500 mg Tab, 500 mg= 1 tab(s), Oral, BID Protonix 40 mg Tab-DR, 40 mg= 1 tab(s), Oral, Daily simvastatin 20 mg Tab, 20 mg= 1 tab(s), Oral, qPM venlafaxine 150 mg Cap-ER, 150 mg= 1 cap(s), Oral, Daily venlafaxine 75 mg Cap-ER, 75 mg= 1 cap(s), Oral, Daily Ventolin HFA 90 mcg/inh Aerosol, 2 puff(s), Inhalation, QID, PRN Vitamin D2 2000 intl units oral capsule, 50 mcg= 1 cap(s), Oral, Daily ZyPREXA 2.5 mg Tab, 2.5 mg= 1 tab(s), Oral, BID Allergies aspirin (Anaphylaxis) Social History Alcohol - Denies Alcohol Use, 01/12/2021 Substance Abuse - Denies Substance Abuse, 01/12/2021 Tobacco Former smoker, quit more than 30 days ago Tobacco Use:. Never Smokeless Tobacco Use:. Cigarettes, 20 per day. Started ag (more content not included)... [facility] Comment on above: Result Comment: Elec tronically Signed By: ZIGGY ROWAN, Maxime Loredo\Date and Time Signed: 10/03/23 14:39 EDT Evaluation + Plan note Note Date & Type Note Facility Evaluation + Plan note No data available for this section [facility] Evaluation note Note Date & Type Note Facility Evaluation note No assessment information availa [facility] Work Phone: Hospital Discharge instructions Note Date & Type Note Facility Hospital Discharge instructions No data available for this section [facility] Progress note Note Date & Type Note Facility Progress note No data available for this section [facility] Summary Purpose Family History No Family History Records FoundNo Family History Records Found No data available for this section No Family History Records Found Advance Directives No Advanced Directives Records Found Advance Directive Response Recorded Date/ Time Advance Directives No June 20, 2017 4:10pm Chief Complaint and Reason for Visit Chief Complaint Screening Additional Source Comments INFORMATION SOURCE (unrecogn ized section and content) DATE CREATED AUTHOR 06/29/2022 [facility] DATE CREATED AUTHOR AUTHOR'S ORGANIZ ATION 11/25/2022 [facility] DATE CREATED AUTHOR AUTHOR'S ORGANIZ ATION 10/05/2023 [facility] Care Teams (unrecognized sec tion and content) Team Status: Active Member Role Status Dates Amado Terrell MD Primary Care Provider Active Team Status: Inactive Member Role Status Dates Amado Terrell MD Primary Care Provider Active Elio Zamudio DO Attending Provider Active Goals (unrecognized section and content) Goals may be documented in a n alternate section No data available for this section FOR RECORDS PERTAINING TO PATIENTS WHO [...] BE BASED ON THE PRIMARY CLINICAL RECORDS. [facility] [employer] [facility]. provides no warranty or guarantee of the accuracy or completeness of information in this document.
[2023-11-02 09:09] LABS: Free T3 2.12 pg/mL (2.18-3.98); Thyroid Stimulating Hormone 4.493 uIU/mL (0.358-3.740)
[2023-11-03 05:08] LABS: HBsAg Screen Negative (Negative); HCV Ab Non Reactive (Non Reactive); Hep A Ab, IgM Negative (Negative); Hep B Core Ab, IgM Negative (Negative)
== END 2023-11-02 08:01 | disposition home or self-care (01) ==
LOC: LAB 08:01
PROVIDERS: PCP Family Medicine; Visit Provider Family Medicine
DX: R79.89 Other specified abnormal findings of blood chemistry (principal); E03.9 Hypothyroidism, unspecified
CPT/HCPCS: 36415; 80074; 84436; 84443; 84481

== ENCOUNTER 2023-11-07 14:42 | Outpatient (OUT) | payer OTHER, SELFPAY ==
--- OUTSIDE RECORDS SUMMARY | 2023-11-07 14:54 | XMS_ITS | CCD ---
Author Organization [facility] Care Team Providers Care Reproduction Machine Loader Name Role Phone DR AMADO TERRELL Attending Unavailable NIDHI, DR FISCHER Primary Care Unavailable NIDHI, DR FISCHER Admitting Unavailable NIDHI, DR FISCHER Consulting Unavailable NIDHI, DR FISCHER Primary Care Unavailable NIDHI, DR FISCHER Admitting Unavailable NIDHI, DR FISCHER Attending Unavailable NIDHI, DR FISCHER Consulting Unavailable NIDHI, DR FISCHER Primary Care Unavailable NIDHI, DR FISCHER Admitting Unavailable NIDHI, DR FISCHER Attending Unavailable MD Amado Terrell Primary Care Provider [phone] DO Elio Zamudio Attending Provider Amado Terrell Primary Care Unavailable Elio Zamudio Attending Unavailable Elio Zamudio Admitting Unavailable Amado Terrell Primary Care Physician Maxime TRINH Attending Unavailable Amado Terrell Referring Unavailable Allergies Allergy Classification Reported Allergen(s) Allergy Type Date of Onset Reaction(s) Facility (2 sources) Aspirin; Translations: [aspirin] Drug Allergy 5 [facility] Repository (1 source) Aspirin; Translations: [aspirin] Drug Allergy Anaphylaxis (disorder) [facility] General [facility] [place] Medications Current Medications Medication Drug Class(es) Dates [...] Ordered Start: 01-08-2021 take 1 capsule by [facility] once daily venlafaxine 150 mg Cap-ER 150 [...] capsule by mouth once daily Vitamin D2 1999 intl units oral capsule 50 mcg = 1 cap(s), Oral, Daily, Refills(s) 0 Start Date: 09/20/23 Status: Ordered Problems Active Problems Problem Classification Problem Date [...] Translations: [Foreign body sensation, throat] Onset: 10-03-2023 Results Test Name Value Interpretation Reference Range Facility Consent for Procedure/Surger yon 10-05-2023 Consent for Procedure/Surgery [id number] [facility] Physician Referralon 024 Physician Referral [id number] F [facility] Facesheeton 10-04-2023 Facesheet [id number] FF [facility] Ambulatory Visit Summaryon 0 10-03-2023 Ambulatory Visit Summary JUSTIN PUTNAM :1965 Visit Date:10/03/2023 Ambulatory Visit Instructions Your Care Team Attending Physician - ZIGGY ROWAN, Maxime Vo Primary Care Physician - Nidhi ROWAN, Amado Referring Physician - Amado Terrell MD This [...] you for choosing us for your care. [facility] Physician Referralon 024 Physician Referral [id number]#[id number] F [facility] Physician Referral [id number] F [facility] MM screening mammo BI w/CADo n 11-11-2022 MM screening mammo BI w/CAD [facility] [place] [address] [place] [address] Mammography Report Signed Patient: Justin Putnam MR#: [id number] : 1965 Acct:[id number] Age/Sex: 56 / F ADM Date: 11/11/22 [facility]: [facility]: Type[facility] Attending Dr: Elio Zamudio DO [...] Bro Gill M.D.11/11/2022 4:00 PM Dictation Location: [facility] Transcribed By: [facility] 11/11/22 1600 Dictated By: Bro Gill DO 11/11/22 1557 Signed By: 11/11/22 1600 [facility] T4 LABCORPon 02-09-2022 T4 [Mass/Vol] 6.2 ug/dL Normal 4.5-12.0 [facility] Comment on above: Performed By: #### T 4LC #### [facility] [address] [place] [address] Dr. Christiane Blancas CBC AUTO DIFFon 02-08-2022 BASO # 0.1 103/ul Normal 0.0-0.1 [facility] Comment on above: Performed By: #### C BC #### [facility] [address] [place] [address] Dr. Christiane Blancas Basophils/100 WBC (Bld) 1.6 % Normal 0.2-2.0 [facility] Comment on above: Performed By: #### C BC #### [facility] [address] [place] [address] Dr. Christiane Blancas EO # 0.1 103/ul Normal 0.0-0.7 [facility] Comment on above: Performed By: #### C BC #### [facility] [address] [place] [address] Dr. Christiane Blancas Eosinophils/100 WBC (Bld) 1.6 % Normal 0.9-7.0 [facility] Comment on above: Performed By: #### C BC #### [facility] [address] [place] [address] Dr. Christiane Blancas Erythrocyte distribution width (RBC) [Ratio] 15.7 % Critically high 11.0-15.0 [facility] Comment on above: Performed By: #### C BC #### [facility] [address] [place] [address] Dr. Christiane Blancas Hematocrit (Bld) [Volume fraction] 39.6 % Normal 36.0-48.0 [facility] Comment on above: Performed By: #### C BC #### [facility] [address] [place] [address] Dr. Christiane Blancas Hemoglobin (Bld) [Mass/Vol] 12.1 g/dL Normal 12.0-16.0 [facility] Comment on above: Performed By: #### C BC #### [facility] [address] [place] [address] Dr. Christiane Blancas IG # 0.02 10e3/ul Normal 0.00-0.03 [facility] Comment on above: Performed By: #### C BC #### [facility] [address] [place] [address] Dr. Christiane Blancas IG % 0.3 % Normal 0.0-0.5 [facility] Comment on above: Performed By: #### C BC #### [facility] [address] [place] [address] Dr. Christiane Blancas LYMPH # 1.7 103/ul Normal 1.2-3.8 [facility] Comment on above: Performed By: #### C BC #### [facility] [address] [place] [address] Dr. Christiane Blancas Lymphocytes/100 WBC (Bld) 30.4 % Normal 20.5-60.0 [facility] Comment on above: Performed By: #### C BC #### [facility] [address] [place] [address] Dr. Christiane Blancas MANUAL DIFF REQ NO Normal [facility] Comment on above: Performed By: #### C BC #### [facility] [address] [place] [address] Dr. Christiane Blancas MCH (RBC) [Entitic mass] 25.5 pg Critically low 26.7-34.0 [facility] Comment on above: Performed By: #### C BC #### [facility] [address] [place] [address] Dr. Christiane Blancas MCHC (RBC) [Mass/Vol] 30.6 g/dL Normal 29.9-35.2 [facility] Comment on above: Performed By: #### C BC #### [facility] [address] [place] [address] Dr. Christiane Blancas MCV (RBC) [Entitic vol] 83.4 fL Normal 81.0-99.0 [facility] Comment on above: Performed By: #### C BC #### [facility] [address] [place] [address] Dr. Christiane Blancas MONO # 0.4 103/ul Normal 0.3-0.8 [facility] Comment on above: Performed By: #### C BC #### [facility] [address] [place] [address] Dr. Christiane Blancas Monocytes/100 WBC (Bld) 7.5 % Normal 1.7-12.0 [facility] Comment on above: Performed By: #### C BC #### [facility] [address] [place] [address] Dr. Christiane Blancas NEUT # 3.4 103/ul Normal 1.4-6.5 [facility] Comment on above: Performed By: #### C BC #### [facility] [address] [place] [address] Dr. Christiane Blancas Neutrophils/100 WBC (Bld) 58.6 % Normal 43.0-75.0 [facility] Comment on above: Performed By: #### C BC #### [facility] [address] [place] [address] Dr. Christiane Blancas Platelet mean volume (Bld) [Entitic vol] 9.9 fL Normal 9.5-13.5 [facility] Comment on above: Performed By: #### C BC #### [facility] [address] [place] [address] Dr. Christiane Blancas PLT 251 103/ul Normal 150-450 [facility] Comment on above: Performed By: #### C BC #### [facility] [address] [place] [address] Dr. Christiane Blancas RBC 4.75 106/ul Normal 4.20-5.40 [facility] Comment on above: Performed By: #### C BC #### [facility] [address] [place] [address] Dr. Christiane Blancas WBC 5.7 103/ul Normal 4.0-11.0 [facility] Comment on above: Performed By: #### C BC #### [facility] [address] [place] [address] Dr. Christiane Blancas FREE T3on 02-08-2022 FREE T3 2.37 pg/mlL Normal 2.18-3.98 [facility] Comment on above: Performed By: #### F T3, CMP, LIPID, TSH #### [facility] [address] [place] [address] Dr. Christiane Blancas GLYCOHEMOGLOBIN A1Con 2021 ADA RECOMMENDATION SEE BELOW Normal [facility] Comment on above: Result Comment: ADA RECOMMENDED LIMIT 4.0 - 6.0 ADA THERAPEUTIC TARGET < 7.0 ACTION SUGGESTED > 7.0 Performed By: #### A 1C #### [facility] [address] [address] [address] Christiane Blancas Glucose [Mass/Vol] 123 mg/dL Normal [facility] Comment on above: Performed By: #### A 1C #### [facility] [address] [address] [address] Christiane Blancas HbA1c (Bld) [Mass fraction] 5.9 % Normal 4.5-6.2 [facility] Comment on above: Performed By: #### A 1C #### [facility] [address] [place] [address] Dr. Christiane Blancas LIPID PROFILEon 02-08-2022 CHOL-HDL RATIO NORM SEE BELOW Normal [facility] Comment on above: Result Comment: 3.3 - 4.4 LOW RISK 4.4 - 7.1 AVERAGE RISK 7.1 - 11.0 MODERATE RISK >11.0 HIGH RISK Performed By: #### F T3, CMP, LIPID, TSH #### [facility] [address] [address] [address] Christiane Blancas Cholesterol [Mass/Vol] 226 mg/dL Critically high <=200 [facility] Comment on above: Performed By: #### F T3, CMP, LIPID, TSH #### [facility] [address] [address] [address] Christiane Blancas Cholesterol in HDL [Mass/Vol] 36 mg/dL Critically low 40-60 [facility] Comment on above: Performed By: #### F T3, CMP, LIPID, TSH #### [facility] [address] [address] [address] Christiane Blancas Cholesterol in LDL [Mass/Vol] 150.6 mg/dL Normal [facility] Comment on above: Performed By: #### F T3, CMP, LIPID, TSH #### [facility] [address] [address] [address] Christiane Blancas Cholesterol.total/C holesterol in HDL [Mass ratio] 6.3 {ratio} Normal [facility] Comment on above: Performed By: #### F T3, CMP, LIPID, TSH #### [facility] [address] [address] [address] Christiane Blancas HDL NORMAL > or = 60 mg/dl - LO W CARDIOVASCULAR RISK <40 mg/dl - HIGH CARDIOVASCULAR RISK Normal [facility] Comment on above: Performed By: #### F T3, CMP, LIPID, TSH #### [facility] [address] [address] [address] Christiane Blancas LDL CALC NORMAL SEE BELOW Normal [facility] Comment on above: Result Comment: <100 mg/dl OPTIMAL 100 - 129 mg/dl NEAR OR ABOVE OPTIMAL 130 - 159 mg/dl BORDERLINE HIGH 160 - 189 mg/dl HIGH >190 mg/dl VERY HIGH Performed By: #### F T3, CMP, LIPID, TSH #### [facility] [address] [address] [address] Christiane Blancas Triglyceride [Mass/Vol] 197 mg/dL Critically high <=150 [facility] Comment on above: Performed By: #### F T3, CMP, LIPID, TSH #### [facility] [address] [address] [address] Christiane Blancas VLDL CALC 39.4 mg/dL Normal [facility] Comment on above: Performed By: #### F T3, CMP, LIPID, TSH #### [facility] [address] [address] [address] Christiane Blancas PROF 14(COMP METB)on 022 Albumin [Mass/Vol] 3.8 g/dL Normal 3.4-5.0 [facility] Comment on above: Performed By: #### F T3, CMP, LIPID, TSH #### [facility] [address] [address] [address] Christiane Blancas Albumin/Globulin [Mass ratio] 1.2 {ratio} Normal [facility] Comment on above: Performed By: #### F T3, CMP, LIPID, TSH #### [facility] [address] [address] [address] Christiane Blancas ALP [Catalytic activity/Vol] 66 U/L Normal 46-116 [facility] Comment on above: Performed By: #### F T3, CMP, LIPID, TSH #### [facility] [address] [address] [address] Christiane Blancas ALT [Catalytic activity/Vol] 44 U/L Normal 14-59 [facility] Comment on above: Performed By: #### F T3, CMP, LIPID, TSH #### [facility] [address] [address] [address] Christiane Blancas Anion gap [Moles/Vol] 13.8 mmol/L Normal [facility] Comment on above: Performed By: #### F T3, CMP, LIPID, TSH #### [facility] [address] [place] [address] Dr. Christiane Blancas AST [Catalytic activity/Vol] 26 U/L Normal 15-37 [facility] Comment on above: Performed By: #### F T3, CMP, LIPID, TSH #### [facility] [address] [place] [address] Dr. Christiane Blancas Bilirubin [Mass/Vol] 0.4 mg/dL Normal 0.2-1.0 [facility] Comment on above: Performed By: #### F T3, CMP, LIPID, TSH #### [facility] [address] [place] [address] Dr. Christiane Blancas Calcium [Mass/Vol] 8.9 mg/dL Normal 8.5-10.1 [facility] Comment on above: Performed By: #### F T3, CMP, LIPID, TSH #### [facility] [address] [place] [address] Dr. Christiane Blancas Chloride [Moles/Vol] 107 mmol/L Normal 98-107 [facility] Comment on above: Performed By: #### F T3, CMP, LIPID, TSH #### [facility] [address] [place] [address] Dr. Christiane Blancas CO2 [Moles/Vol] 27.1 mmol/L Normal 21.0-32.0 [facility] Comment on above: Performed By: #### F T3, CMP, LIPID, TSH #### [facility] [address] [address] [address] Christiane Blancas Creatinine [Mass/Vol] 0.92 mg/dL Normal 0.55-1.02 [facility] Comment on above: Performed By: #### F T3, CMP, LIPID, TSH #### [facility] [address] [address] [address] Christiane Blancas EGFR-AF DJIBOUTIAN >60 Normal >=60 [facility] Comment on above: Performed By: #### F T3, CMP, LIPID, TSH #### [facility] [address] [address] [address] Christiane Blancas EGFR-NON AF DJIBOUTIAN >60 Normal >=60 [facility] Comment on above: Performed By: #### F T3, CMP, LIPID, TSH #### [facility] [address] [address] [address] Christiane Blancas Globulin (S) [Mass/Vol] 3.2 g/dL Normal [facility] Comment on above: Performed By: #### F T3, CMP, LIPID, TSH #### [facility] [address] [address] [address] Christiane Blancas Glucose [Mass/Vol] 165 mg/dL Critically high 74-106 T [facility] Comment on above: Performed By: #### F T3, CMP, LIPID, TSH #### [facility] [address] [address] [address] Christiane Blancas Potassium [Moles/Vol] 3.9 mmol/L Normal 3.5-5.1 [facility] Comment on above: Performed By: #### F T3, CMP, LIPID, TSH #### [facility] [address] [address] [address] Christiane Blancas Protein [Mass/Vol] 7.0 g/dL Normal 6.4-8.2 [facility] Comment on above: Performed By: #### F T3, CMP, LIPID, TSH #### [facility] [address] [address] [address] Christiane Blancas Sodium [Moles/Vol] 144 mmol/L Normal 136-145 [facility] Comment on above: Performed By: #### F T3, CMP, LIPID, TSH #### [facility] [address] [address] [address] Christiane Blancas Urea nitrogen [Mass/Vol] 12.0 mg/dL Normal 7.0-18.0 [facility] Comment on above: Performed By: #### F T3, CMP, LIPID, TSH #### [facility] [address] [address] [address] Christiane Blancas Urea nitrogen/Creatinine [Mass ratio] 13.0 mg/mg Normal [facility] Comment on above: Performed By: #### F T3, CMP, LIPID, TSH #### [facility] [address] [place] [address] Dr. Christiane Blancas TSHon 02-08-2022 TSH 1.752 uIU/mL Normal 0.358-3.740 [facility] Comment on above: Performed By: #### F T3, CMP, LIPID, TSH #### [facility] [address] [place] [address] Dr. Christiane Blancas VITAMIN D 25 OHon 02-08-2022 VIT D 25-OH 21.5 ng/mL Normal [facility] Comment on above: Performed By: #### V ITAD #### [facility] [address] [place] [address] Dr. Christiane Blancas VIT D RANGES SEE BELOW Normal [facility] Comment on above: Result Comment: <20 ng/mL Vit D deficient 20 - <30 ng/mL Vit D insufficient 30 - 100 ng/mL Vit D sufficient >100 ng/mL Potential Toxicity Performed By: #### V ITAD #### [facility] [address] [place] [address] Dr. Christiane Blancas Covid-19 PCR ([facility])on 08-13 SARS-CoV-2 (COVID-19) RNA CHRIS+probe Ql (Unsp spec) Not detected Normal NOT DETECTED [facility] Comment on above: Result Comment: This test is not yet approved or cleared by the [place] FDA. When there are no FDA-approved or cleared tests available, and other criteria are met, FDA can make tests available under an emergency access mechanism called an Emergency Use Authorization (EUA). The EUA for this test is supported by the [employer] of Health and Human Service's (HHS's) declaration [...] SARS-CoV-2. Performed By: #### C VDTB #### [facility] [address] [place] [address] Dr. Christiane Blancas INFLUENZA A AND B AGon 08-23 [facility] SEE BELOW Normal [facility] Comment on above: Result Comment: Nega tive for Flu A protein angiten. Infection due to Flu A cannot be ruled out. Flu A angiten in the sample may be below the detection limit of the test. Performed By: #### I NFLUAB #### [facility] [address] [place] [address] Dr. [address] [facility] [facility] SEE BELOW Normal [facility] Comment on above: Result Comment: Nega tive for Flu B protein antigen. Infection due to Flu B cannot be ruled out. Flu B antigen in the sample may be below the detection limit of the test. Performed By: #### I NFLUAB #### [facility] [address] [place] [address] Dr. Christiane Blancas INFLUENZA A AG Negative Normal NEGATIVE SEE COMMENT [facility] Comment on above: Performed By: #### I NFLUAB #### [facility] [address] [place] [address] Dr. Christiane Blancas INFLUENZA B AG Negative Normal NEGATIVE SEE COMMENT [facility] Comment on above: Performed By: #### I NFLUAB #### [facility] [address] [address] [address] Christiane Blancas INTERNAL CONTROLS Within Normal Limits Normal Wi thin Normal Limits [facility] Comment on above: Performed By: #### I NFLUAB #### [facility] [id number] Christiane Blancas Vital Signs Date Time Vital Sign Value Performing Clinician Santino jarvis 10-03-2023 13:55-0400 Blood Pressure Location Maxime ZIGGY [facility] 10-03-2023 13:55-0400 Diastolic blood pressure 80 mm[Hg] Maxime TRINH [facility] 10-03-2023 13:55-0400 Heart rate 72 /min Maxime TRINH [facility] 10-03-2023 13:55-0400 Systolic blood pressure 122 mm[Hg] Maxime TRINH [facility] Encounters Encounter Date Encounter Type Care Provider Facility Start: 10-03-2023 End: 10-04-2023 ambulatory Maxime TRINH Facility:[facility] Start: 10-03-2023 End: 10-03-2023 Patient encounter procedure Maxime TRINH [facility] Start: 11-11-2022 End: 11-11-2022 ambulatory Amado Terrell Facility:[facility] Start: 11-11-2022 End: 11-11-2022 ambulatory MD Amado Terrell Work Phone: [facility] Work Phone: Start: 11-11-2022 End: 11-11-2022 Patient encounter procedure MD Amado Terrell Work Phone: [facility] Work Phone: Start: 06-29-[address] AMADO TERRELL Facility : Start: 02-10-2022 Encounter for genera l adult medical examination without abnormal findings DR AMADO TERRELL [facility] Start: 02-08-2022 End: 02-09-[address] AMADO TERRELL Facility:[facility] Start: 02-08-2022 End: 02-09-2022 Encounter for general adult medical examination without abnormal findings DR AMADO TERRELL Facility:[facility] Start: 08-23-2021 End: 08-23-[address] AMADO TERRELL Facility:[facility] Procedures Date Procedure Procedure Detail Performing Clinician Start: 11-11-2022 Screening mammograph y of bilateral breasts MD Amado Terrell Work Phone: Start: 01-27-2021 Colonoscopy Maxime NI LL Appendectomy Maxime NILL section Maxime NIL L section Maxime NIL L Comment on above: x 2 Immunizations Immunization Date Immunization Notes Care Provider Fa [facility] 05-10-2021 SARS-CoV-2 (COVID-19 ) mRNA-1273 vaccine Maxime NILL [facility] 09-02-2020 SARS-CoV-2 (COVID-19 ) mRNA-1273 vaccine Maxime NILL [facility] 07-27-2020 SARS-CoV-2 (COVID-19 ) mRNA-1273 vaccine Maxime NILL [facility] Payers Date Payer Category Payer Medicaid [id number] 2022 Self-pay [id number] 1965 Unknown [id number] 2.16.84 [id number] 1965 Unknown [id number] 2.16.84 [id number] 1965 Unknown [id number] 2.16.84 [id number] 1965 Unknown [id number] [id number] 1958 Self-pay [id number] 1958 Unknown [id number] Unknown Laurie BC/BS [id number] Unknown [id number] 2.16.8 [id number] Social History Date Type Detail Facility Tobacco smoking stat [facility] Unknown if ever smoked [facility] Work Phone: Start: 1965 Sex Assigned At Female F [facility] Start: 10-03-2023 Tobacco smoking status Ex-smoker (fi nding) [facility] Tobacco smoking status Never [facility] Sex Assigned At Female [facility] Functional Status Date Assessment Result Facility 10-03-2023 Functional Status N/A [facility] Clinical Note 10-03-2023 Note Date & [...] day. Started ag (more content not included)... [facility] Comment on above: Result Comment: Elec tronically Signed By: ZIGGY ROWAN, Maxime Loredo\Date and Time Signed: 10/03/23 14:39 EDT Evaluation + Plan note Note Date & Type Note Facility Evaluation + Plan note No data available for this section [facility] Evaluation note Note Date & Type Note Facility Evaluation note No assessment information availa [facility] Work Phone: Hospital Discharge instructions Note Date & Type Note Facility Hospital Discharge instructions No data available for this section [facility] Progress note Note Date & Type Note Facility Progress note No data available for this section [facility] Summary Purpose Family History No Family History [...] and content) DATE CREATED AUTHOR 06/29/2022 [facility] pital DATE CREATED AUTHOR AUTHOR'S ORGANIZ ATION 11/25/2022 [facility] DATE CREATED AUTHOR AUTHOR'S ORGANIZ ATION 10/05/2023 [facility] Care Teams (unrecognized sec tion and content) [...] BE BASED ON THE PRIMARY CLINICAL RECORDS. [facility] provides no warranty or guarantee of the accuracy or completeness of information in this document.
== END 2023-11-07 14:43 | disposition home or self-care (01) ==
LOC: PST 14:42
PROVIDERS: PCP Family Medicine; Visit Provider Surgery
DX: Z01.818 Encounter for other preprocedural examination (principal); R09.A2 Foreign body sensation, throat

== ENCOUNTER 2023-11-15 06:45 | Day surgery (SDC) | payer OTHER, SELFPAY ==
--- NOTE | 2023-11-15 | OP_ITS ---
OPERATION DATE: 11/15/2023 PREOPERATIVE DIAGNOSIS: Gastroesophageal reflux disease and regurgitation, globus sensation. POSTOPERATIVE DIAGNOSIS: Small sliding type hiatal hernia, as well as small gastric polyp in the gastric body. PROCEDURE: EGD with biopsy of gastric polyp. SURGEON: Maxime Encinas M.D. ANESTHESIA: Monitored anesthesia care. ESTIMATED BLOOD LOSS: Less than 1 mL. INDICATIONS AND CONSENT: Patient is a 57-year-old female with long history of gastroesophageal reflux disease, as well as globus sensation, some improvement with protonix daily. Indications, risks, benefits, alternatives of proceeding with EGD were explained extensively to the patient, including the risks of bleeding, aspiration, esophageal/gastric/duodenal perforation or anesthetic complications. All of her questions were answered. Informed consent was obtained. PROCEDURE: Patient brought to the operating room, placed in the left lateral decubitus position. Monitored anesthesia care was provided. Bite block was placed in the patient?s mouth. Scope was inserted into the oropharynx. Under direct visualization, it was advanced into the esophagus, past the cricopharyngeus, down to the stomach. The stomach was insufflated with air. The pylorus was traversed down to the descending portion of the duodenum. There was no evidence of duodenitis or ulceration. There was no scarring within the pyloric channel. Scope was pulled back into the stomach and retroflexed. There was a small, sliding type hiatal hernia. Within the gastric body, there were multiple small, several millimeter gastric polyps. Largest was approximately 4 mm. This was biopsied with cold biopsy forceps with good hemostasis. The GE junction was noted at 36 cm. It was regular. There was no distal esophagitis or Newby?s changes. The remainder of the esophagus was unremarkable. The scope was then withdrawn. Patient tolerated procedure well, was sent to recovery room in good condition. CC: Isaiah Terrell M.D. [facility]
--- OUTSIDE RECORDS SUMMARY | 2023-11-15 06:48 | XMS_ITS | CCD ---
Author Organization [facility] Care Team Providers Care Open Shank Coverer Name Role Phone DR AMADO TERRELL Attending [...] MD Amado Terrell Primary Care Provider DO Nnamdi Blackman Attending Provider Amado Terrell Primary Care Unavailable Nnamdi Blackman Attending Unavailable Nnamdi Blackman Admitting Unavailable Amado Terrell Primary Care Physician Maxime TRINH Attending Unavailable Amado Terrell Referring Unavailable NNAMDI BLACKMAN Attending Unavailable NNAMDI BLACKMAN Referring Unavailable Allergies Allergy Classification Reported Allergen(s) Allergy Type Date of Onset Reaction(s) Facility (2 sources) Aspirin; Translations: [aspirin] Drug Allergy 5 [facility] Repository (1 source) Aspirin; Translations: [aspirin] Drug Allergy Anaphylaxis (disorder) [facility] Medications Current Medications Medication Drug Class(es) Dates [...] Ordered Start: 01-08-2021 take 1 capsule by mo [facility] once daily venlafaxine 150 mg Cap-ER [...] Test Name Value Interpretation Reference Range Facility Insurance Correspondenceon 0 11-07-2023 Insurance Correspondence [id number] FF [facility] Consent for Procedure/Surger yon 10-05-2023 Consent for Procedure/Surgery [id number]#1.00TIFF [facility] Physician Referralon 024 Physician Referral [id number]#1.00TIF F [facility] Facesheeton 10-04-2023 Facesheet [id number]#1.00TI FF [facility] Ambulatory Visit Summaryon 0 10-03-2023 [...] you for choosing us for your care. Normal [facility] Physician Referralon 024 Physician Referral [id number]#[id number] F Normal [facility] Physician Referral [id number] F Normal [facility] MM screening mammo BI w/CADo n 11-11-2022 MM screening mammo BI w/CAD [facility] [place] [address] [place] [address] Mammography Report Signed Patient: Justin Putnam MR#: [id number] : 1965 Acct:[id number] Age/Sex: 56 / F ADM Date: 11/11/22 Loc: [place] Room: Type: [facility] Attending Dr: Nnamdi Blackman DO Copies to: MD Nnamdi Cervantes DO Ordering Provider: Nnamdi Blackman DO Date of Service: 11/11/22 MM/MM screening [...] Bro Gill M.D.11/11/2022 4:00 PM Dictation Location: [facility] Transcribed By: [facility] 11/11/22 1600 Dictated By: Bro Gill DO 11/11/22 1557 Signed By: 11/11/22 1600 [facility] T4 LABCORPon 02-09-2022 T4 [Mass/Vol] 6.2 ug/dL Normal 4.5-12.[address] [facility] Comment on above: Performed By: #### T 4LC #### [facility] [address] [place] [address] Dr. Christiane Blancas CBC AUTO DIFFon 02-08-2022 BASO # 0.1 103/ul Normal 0.0-0.1 [facility] Comment on above: Performed By: #### C BC #### [facility] [address] [place] [address] Dr. Christiane Blancas Basophils/100 WBC (Bld) 1.6 % Normal 0.2-2.0 [facility] Comment on above: Performed By: #### C BC #### [facility] [address] [place] [address] Dr. Christiane Blancas EO # 0.1 103/ul Normal 0.0-0.7 [facility] Comment on above: Performed By: #### C BC #### [facility] [address] [place] [address] Dr. Christiane Blancas Eosinophils/100 WBC (Bld) 1.6 % Normal 0.9-7.0 [facility] Comment on above: Performed By: #### C BC #### [facility] [address] [place] [address] Dr. Christiane Blancas Erythrocyte distribution width (RBC) [Ratio] 15.7 % Critically high 11.0-15.0 [facility] Comment on above: Performed By: #### C BC #### [facility] [address] [place] [address] Dr. Christiane Blancas Hematocrit (Bld) [Volume fraction] 39.6 % Normal 36.0-48.0 [facility] Comment on above: Performed By: #### C BC #### [facility] [address] [place] [address] Dr. Christiane Blancas Hemoglobin (Bld) [Mass/Vol] 12.1 g/dL Normal 12.0-16.0 [facility] Comment on above: Performed By: #### C BC #### [facility] [address] [place] [address] Dr. Christiane Blancas IG # 0.02 10e3/ul Normal 0.00-0.03 [facility] Comment on above: Performed By: #### C BC #### [facility] [address] [place] [address] Dr. Christiane Blancas IG % 0.3 % Normal 0.0-0.5 [facility] Comment on above: Performed By: #### C BC #### [facility] [address] [place] [address] Dr. Christiane Blancas LYMPH # 1.7 103/ul Normal 1.2-3.8 [facility] Comment on above: Performed By: #### C BC #### [facility] [address] [place] [address] Dr. Christiane Blancas Lymphocytes/100 WBC (Bld) 30.4 % Normal 20.5-60.0 [facility] Comment on above: Performed By: #### C BC #### [facility] [address] [place] [address] Dr. Christiane Blancas MANUAL DIFF REQ NO Normal [facility] Comment on above: Performed By: #### C BC #### [facility] [address] [place] [address] Dr. Christiane lBancas MCH (RBC) [Entitic mass] 25.5 pg Critically low 26.7-34.0 [facility] Comment on above: Performed By: #### C BC #### [facility] [address] [place] [address] Dr. Christiane Blancas MCHC (RBC) [Mass/Vol] 30.6 g/dL Normal 29.9-35.2 [facility] Comment on above: Performed By: #### C BC #### [facility] [address] [place] [address] Dr. Christiane Blancas MCV (RBC) [Entitic vol] 83.4 fL Normal 81.0-99.0 [facility] Comment on above: Performed By: #### C BC #### [facility] [address] [place] [address] Dr. Christiane Blancas MONO # 0.4 103/ul Normal 0.3-0.8 [facility] Comment on above: Performed By: #### C BC #### [facility] [address] [place] [address] Dr. Christiane Blancas Monocytes/100 WBC (Bld) 7.5 % Normal 1.7-12.0 [facility] Comment on above: Performed By: #### C BC #### [facility] [address] [place] [address] Dr. Christiane Blancas NEUT # 3.4 103/ul Normal 1.4-6.5 [facility] Comment on above: Performed By: #### C BC #### [facility] [address] [place] [address] Dr. Christiane Blancas Neutrophils/100 WBC (Bld) 58.6 % Normal 43.0-75.0 [facility] Comment on above: Performed By: #### C BC #### [facility] [address] [place] [address] Dr. Christiane Blancas Platelet mean volume (Bld) [Entitic vol] 9.9 fL Normal 9.5-13.5 [facility] Comment on above: Performed By: #### C BC #### [facility] [address] [place] [address] Dr. Christiane Blancas PLT 251 103/ul Normal 150-450 [facility] Comment on above: Performed By: #### C BC #### [facility] [address] [place] [address] Dr. Christiane Blancas RBC 4.75 106/ul Normal 4.20-5.40 [facility] Comment on above: Performed By: #### C BC #### [facility] [address] [place] [address] Dr. Christiane Blancas WBC 5.7 103/ul Normal 4.0-11.0 [facility] Comment on above: Performed By: #### C BC #### [facility] [address] [place] [address] Dr. Christiane Blancas FREE T3on 02-08-2022 FREE T3 2.37 pg/mlL Normal 2.18-3.98 [facility] Comment on above: Performed By: #### F T3, CMP, LIPID, TSH #### [facility] [address] [address] [address] Christiane Blancas GLYCOHEMOGLOBIN A1Con 2021 ADA RECOMMENDATION SEE BELOW Normal [facility] Comment on above: Result Comment: ADA RECOMMENDED LIMIT 4.0 - 6.0 ADA THERAPEUTIC TARGET < 7.0 ACTION SUGGESTED > 7.0 Performed By: #### A 1C #### [facility] [address] [address] [address] Christiane Blancas Glucose [Mass/Vol] 123 mg/dL Normal [facility] Comment on above: Performed By: #### A 1C #### [facility] [address] [address] [address] Christiane Blancas HbA1c (Bld) [Mass fraction] 5.9 % Normal 4.5-6.2 [facility] Comment on above: Performed By: #### A 1C #### [facility] [address] [address] [address] Christiane Blancas LIPID PROFILEon 02-08-2022 CHOL-HDL RATIO NORM SEE BELOW Normal [facility] Comment on above: Result Comment: 3.3 - 4.4 LOW RISK 4.4 - 7.1 AVERAGE RISK 7.1 - 11.0 MODERATE RISK >11.0 HIGH RISK Performed By: #### F T3, CMP, LIPID, TSH #### [facility] [address] [address] [address] Christiane Blancas Cholesterol [Mass/Vol] 226 mg/dL Critically high <=200 [facility] Comment on above: Performed By: #### F T3, CMP, LIPID, TSH #### [facility] [address] [address] [address] Christiane Blancas Cholesterol in HDL [Mass/Vol] 36 mg/dL Critically low 40-60 [facility] Comment on above: Performed By: #### F T3, CMP, LIPID, TSH #### [facility] [address] [address] [address] Christiane Blancas Cholesterol in LDL [Mass/Vol] 150.6 mg/dL Normal [facility] Comment on above: Performed By: #### F T3, CMP, LIPID, TSH #### [facility] [address] [address] [address] Christiane Blancas Cholesterol.total/Ch olesterol in HDL [Mass ratio] 6.3 {ratio} Normal [facility] Comment on above: Performed By: #### F T3, CMP, LIPID, TSH #### [facility] [address] [address] [address] Christiane Blancas HDL NORMAL > or = 60 mg/dl - LO W CARDIOVASCULAR RISK <40 mg/dl - HIGH CARDIOVASCULAR RISK Normal [facility] Comment on above: Performed By: #### F T3, CMP, LIPID, TSH #### [facility] [address] [address] [address] Christiane Blancas LDL CALC NORMAL SEE BELOW Normal [facility] Comment on above: Result Comment: <100 mg/dl OPTIMAL 100 - 129 mg/dl NEAR OR ABOVE OPTIMAL 130 - 159 mg/dl BORDERLINE HIGH 160 - 189 mg/dl HIGH >190 mg/dl VERY HIGH Performed By: #### F T3, CMP, LIPID, TSH #### [facility] [address] [address] [address] Christiane Blancas Triglyceride [Mass/Vol] 197 mg/dL Critically high <=150 [facility] Comment on above: Performed By: #### F T3, CMP, LIPID, TSH #### [facility] [address] [address] [address] Christiane Blancas VLDL CALC 39.4 mg/dL Normal [facility] Comment on above: Performed By: #### F T3, CMP, LIPID, TSH #### [facility] [address] [address] [address] Christiane Blancas PROF 14(COMP METB)on 022 Albumin [Mass/Vol] 3.8 g/dL Normal 3.4-5.0 [facility] Comment on above: Performed By: #### F T3, CMP, LIPID, TSH #### [facility] [address] [address] [address] Christiane Blancas Albumin/Globulin [Mass ratio] 1.2 {ratio} Normal [facility] Comment on above: Performed By: #### F T3, CMP, LIPID, TSH #### [facility] [address] [place] [address] Dr. Christiane Blancas ALP [Catalytic activity/Vol] 66 U/L Normal 46-116 [facility] Comment on above: Performed By: #### F T3, CMP, LIPID, TSH #### [facility] [address] [place] [address] Dr. Christiane Blancas ALT [Catalytic activity/Vol] 44 U/L Normal 14-59 [facility] Comment on above: Performed By: #### F T3, CMP, LIPID, TSH #### [facility] [address] [place] [address] Dr. Christiane Blancas Anion gap [Moles/Vol] 13.8 mmol/L Normal [facility] Comment on above: Performed By: #### F T3, CMP, LIPID, TSH #### [facility] [address] [place] [address] Dr. Christiane Blancas AST [Catalytic activity/Vol] 26 U/L Normal 15-37 [facility] Comment on above: Performed By: #### F T3, CMP, LIPID, TSH #### [facility] [address] [place] [address] Dr. Christiane Blancas Bilirubin [Mass/Vol] 0.4 mg/dL Normal 0.2-1.0 [facility] Comment on above: Performed By: #### F T3, CMP, LIPID, TSH #### [facility] [address] [place] [address] Dr. Christiane Blancas Calcium [Mass/Vol] 8.9 mg/dL Normal 8.5-10.1 [facility] Comment on above: Performed By: #### F T3, CMP, LIPID, TSH #### [facility] [address] [place] [address] Dr. Christiane Blancas Chloride [Moles/Vol] 107 mmol/L Normal 98-107 [facility] Comment on above: Performed By: #### F T3, CMP, LIPID, TSH #### [facility] [address] [address] [address] Christiane Blancas CO2 [Moles/Vol] 27.1 mmol/L Normal 21.0-32.0 [facility] Comment on above: Performed By: #### F T3, CMP, LIPID, TSH #### [facility] [address] [address] [address] Christiane Blancas Creatinine [Mass/Vol] 0.92 mg/dL Normal 0.55-1.02 [facility] Comment on above: Performed By: #### F T3, CMP, LIPID, TSH #### [facility] [address] [address] [address] Christiane Blancas EGFR-AF BURMESE >60 Normal >=60 [facility] Comment on above: Performed By: #### F T3, CMP, LIPID, TSH #### [facility] [address] [address] [address] Christiane Blancas EGFR-NON AF BURMESE >60 Normal >=60 [facility] Comment on above: Performed By: #### F T3, CMP, LIPID, TSH #### [facility] [address] [address] [address] Christiane Blancas Globulin (S) [Mass/Vol] 3.2 g/dL Normal [facility] Comment on above: Performed By: #### F T3, CMP, LIPID, TSH #### [facility] [address] [address] [address] Christiane Blancas Glucose [Mass/Vol] 165 mg/dL Critically high 74-106 [facility] Comment on above: Performed By: #### F T3, CMP, LIPID, TSH #### [facility] [address] [address] [address] Christiane Blancas Potassium [Moles/Vol] 3.9 mmol/L Normal 3.5-5.1 [facility] Comment on above: Performed By: #### F T3, CMP, LIPID, TSH #### [facility] [address] [address] [address] Christiane Blancas Protein [Mass/Vol] 7.0 g/dL Normal 6.4-8.2 [facility] Comment on above: Performed By: #### F T3, CMP, LIPID, TSH #### [facility] [address] [place] [address] Dr. Christiane Blancas Sodium [Moles/Vol] 144 mmol/L Normal 136-145 [facility] Comment on above: Performed By: #### F T3, CMP, LIPID, TSH #### [facility] [address] [address] [address] Christiane Blancas Urea nitrogen [Mass/Vol] 12.0 mg/dL Normal 7.0-18.0 [facility] Comment on above: Performed By: #### F T3, CMP, LIPID, TSH #### [facility] [address] [place] [address] Dr. Christiane Blancas Urea nitrogen/Creatinine [Mass ratio] 13.0 mg/mg Normal [facility] Comment on above: Performed By: #### F T3, CMP, LIPID, TSH #### [facility] [address] [place] [address] Dr. Christiane Blancas TSHon 02-08-2022 TSH 1.752 uIU/mL Normal 0.358-3.[address] [facility] Comment on above: Performed By: #### F T3, CMP, LIPID, TSH #### [facility] [address] [place] [address] Dr. Christiane Blancas VITAMIN D 25 OHon 02-08-2022 VIT D 25-OH 21.5 ng/mL Normal [facility] Comment on above: Performed By: #### V ITAD #### [facility] [address] [place] [address] Dr. Christiane Blancas VIT D RANGES SEE BELOW Normal [facility] Comment on above: Result Comment: <20 ng/mL Vit D deficient 20 - <30 ng/mL Vit D insufficient 30 - 100 ng/mL Vit D sufficient >100 ng/mL Potential Toxicity Performed By: #### V ITAD #### [facility] [address] [place] [address] Dr. Christiane Blancas [facility]13 SARS-CoV-2 (COVID-19) RNA CHRIS+probe Ql (Unsp spec) Not detected Normal NOT DETECTED [facility] Comment on above: Result Comment: This test is not yet approved or cleared by the [place] FDA. When there are no FDA-approved or cleared tests available, and other criteria are met, FDA can make tests available under an emergency access mechanism called an Emergency Use Authorization (EUA). The EUA for this test is supported by the [place] of Health and Human Service's (HHS's) declaration [...] SARS-CoV-2. Performed By: #### C VDTBH #### [facility] [address] [place] [address] Dr. Christiane Blancas INFLUENZA A AND B [facility]on 08[facility] Normal [facility] Comment on above: Result Comment: Nega tive for Flu A protein angiten. Infection due to Flu A cannot be ruled out. Flu A angiten in the sample may be below the detection limit of the test. Performed By: #### I NFLUAB #### [facility] [address] [place] [address] Dr. Christiane Blancas INFLUBNEG SEE BELOW Normal [facility] Comment on above: Result Comment: Nega tive for Flu B protein antigen. Infection due to Flu B cannot be ruled out. Flu B antigen in the sample may be below the detection limit of the test. Performed By: #### I NFLUAB #### [facility] [address] [place] [address] Dr. Christiane Blancas INFLUENZA A AG Negative Normal NEGATIVE SEE COMMENT [facility] Comment on above: Performed By: #### I NFLUAB #### [facility] [address] [place], [place] [address] Dr. Christiane Blancas INFLUENZA B AG Negative Normal NEGATIVE SEE COMMENT [facility] Comment on above: Performed By: #### I NFLUAB #### [facility] [address] [place], [place] [address] Dr. Christiane Blancas INTERNAL CONTROLS Within Normal Limits Normal Wi thin Normal Limits [facility] Comment on above: Performed By: #### I NFLUAB #### [facility] [address] [place], [place] [address] Dr. Christiane Blancas Vital Signs Date Time Vital Sign Value Performing Clinician Faci lity 10-03-2023 13:55-0400 Blood Pressure Location Maxime TRINH [facility] 10-03-2023 13:55-0400 Diastolic blood pressure 80 mm[Hg] Maxime TRINH [facility] 10-03-2023 13:55-0400 Heart rate 72 /min Maxime TRINH [facility] 10-03-2023 13:55-0400 Systolic blood pressure 122 mm[Hg] Maxime TRINH [facility] Encounters Encounter Date Encounter Type Care Provider Facility Start: 11-09-2023 End: 11-09-2023 ambulatory NNAMDI BLACKMAN Not Available Start: 10-03-2023 End: 10-03-2023 ambulatory Maxime TRINH Facility:[facility] Start: 10-03-2023 End: 10-03-2023 Patient encounter procedure Mxaime TRINH [facility] Start: 11-11-2022 End: 11-11-2022 ambulatory Amado Terrell Facility:[facility] Start: 11-11-2022 End: 11-11-2022 ambulatory MD Amado Terrell Work Phone: [facility] Work Phone: Start: 11-11-2022 End: 11-11-2022 Patient encounter procedure MD Amado Terrell [facility] Work Phone: Start: 06-29-[address] AMADO TERRELL Facility :[facility] Start: 02-10-2022 Encounter for genera l adult medical examination without abnormal findings DR AMADO TERRELL [facility] Start: 02-08-2022 End: 02-09-[address] AMADO [...] Immunization Date Immunization Notes Care Provider Fa cili 05-10-2021 SARS-CoV-2 (COVID-19 ) mRNA-1273 vaccine Maxime NILL [facility] 09-02-2020 SARS-CoV-2 (COVID-19 ) mRNA-1273 vaccine Maxime NILL [facility] 07-27-2020 SARS-CoV-2 (COVID-19 ) mRNA-1273 vaccine Amxime NILL [facility] Payers Date Payer Category Payer Self-pay [id number] 2022 Medicaid [id number] 1965 Unknown [id number] 2.16.84 [id number] 1965 Unknown [id number] 2.16.84 [id number] 1965 Unknown [id number] 2.16.84 [id number] 1965 Unknown [id number] 2.16.8 [id number] 1965 Unknown [id number] 2.16.84 [id number] 1958 Self-pay [id number] 1958 Unknown [id number] Unknown Laurie BC/BS [id number] Unknown [id number] 2.16.8 [id number] Social History Date Type Detail Facility [facility] Work Phone: Start: 1965 Sex Assigned At Female F [facility] Start: 10-03-2023 Tobacco smoking status Ex-smoker (fi nding) [facility] Tobacco smoking status Never [facility] Sex Assigned At Female [facility] Functional Status Date Assessment Result Facility 10-03-2023 Functional Status N/A [facility] Clinical Note 10-03-2023 Note Date & [...] day. Started ag (more content not included)... [facility] Comment on above: Result Comment: Elec tronically Signed By: ZIGGY ROWAN, Maxime Vo\hebert\Date and Time Signed: 10/03/23 14:39 EDT Evaluation + Plan note Note Date & Type Note Facility Evaluation + Plan note No data available for this section [facility] Evaluation note Note Date & Type Note Facility Evaluation note No assessment information availa [facility] Work Phone: Hospital Discharge instructions Note Date & Type Note Facility Hospital Discharge instructions No data available for this section [facility] Progress note Note Date & Type Note Facility Progress note No data available for this section [facility] Summary Purpose Family History No Family History Records FoundNo Family History Records Found No data available for this section No Family History Records FoundNo Family History Records Found Advance Directives No Advanced Directives Records Found Advance Directive Response Recorded Date/ Time Advance Directives No June 20, 2017 4:10pm Chief Complaint and Reason for Visit Chief Complaint Screening Additional Source Comments INFORMATION SOURCE (unrecogn ized section and content) DATE CREATED AUTHOR [facility]2022 [facility] DATE CREATED AUTHOR AUTHOR'S ORGANIZ ATION 11/25/2022 [facility] DATE CREATED AUTHOR AUTHOR'S ORGANIZ ATION 11/08/2023 [facility] DATE CREATED AUTHOR AUTHOR'S ORGANIZ ATION 11/11/2023 [facility] EPIC Care Teams (unrecognized sec tion and content) Team Status: Active Member Role Status Dates Amado Terrell MD Primary Care Provider Active Team Status: Inactive Member Role Status Dates Amado Terrell MD Primary Care Provider Active Nnamdi Blackman DO Attending Provider Active Goals (unrecognized section [...] BE BASED ON THE PRIMARY CLINICAL RECORDS. [employer] [facility]. provides no warranty or guarantee of the accuracy or completeness of information in this document.
[2023-11-15 07:04] VITALS: BP 144/91; PULSE 97; TEMP 36.1; O2SAT 98; BMI 28.3
[2023-11-15 07:04] LABS: Glucometer 240 mg/dL (74-106)
[2023-11-15] MEDS: LACTATED RINGER'S SOLUTION 1,000 ML 50 ML IV (07:16)
[2023-11-15 08:49] VITALS: BP 106/64; PULSE 83; TEMP 36.4; O2SAT 93
[2023-11-15 09:05] VITALS: BP 113/66; PULSE 83; O2SAT 95
[2023-11-15 09:20] VITALS: BP 110/68; PULSE 78; O2SAT 95
== END 2023-11-15 09:26 | disposition home or self-care (01) ==
PROVIDERS: PCP Family Medicine; Visit Provider Surgery
PROC: (CPT 00731; principal; 2023-11-15 08:10)
DX: K21.9 Gastro-esophageal reflux disease without esophagitis (principal); K44.9 Diaphragmatic hernia without obstruction or gangrene; K31.7 Polyp of stomach and duodenum; R09.A2 Foreign body sensation, throat; E11.9 Type 2 diabetes mellitus without complications; E78.00 Pure hypercholesterolemia, unspecified; F31.9 Bipolar disorder, unspecified; R13.10 Dysphagia, unspecified; Z80.0 Family history of malignant neoplasm of digestive organs; Z79.84 Long term (current) use of oral hypoglycemic drugs; Z87.891 Personal history of nicotine dependence; E03.9 Hypothyroidism, unspecified
CPT/HCPCS: 00731; 43239; 36415; 82948; 88305; J2250; J2704

== ENCOUNTER 2024-10-26 08:36 | Outpatient (OUT) | payer OTHER, SELFPAY ==
--- OUTSIDE RECORDS SUMMARY | 2024-06-13 05:39 | XMS_ITS ---
Author Organization The [facility] in [place] Address [address] [place] [address] Care Team Providers Care Deputy Probation Officer Name Role Phone Ezra Terrell Primary Care Provider [phone] REASON FOR VISIT Letter- Encounters Encounter Location Date Provider Diagnosis [facility] [address] [place] [address] 06/13/2024 Ezra Terrell Plan Of Treatment No Information Progress Notes * Francia PUTNAM EDOB:1965 (58 yo F)Acc No.[id number]:06/13/2024 Patient: Mak Francia PRIETO :1965 A ge:58 Y S ex:Female Address:[address] [place], [address] * true * Date: Generated for Busteri ng/Fakelseyg/eTransmitting on: 0 10/26/2024 08:41 AM EDT
--- OUTSIDE RECORDS SUMMARY | 2024-10-16 04:17 | XMS_ITS ---
Author Organization The [facility] in [place] Address [address] [place] [address] Care Team Providers Care Ampoule Filler Name Role Phone Ezra Terrell Primary Care Provider REASON FOR VISIT yearly appointment Encounters Encounter Location Date Provider Diagnosis [facility] [address] [place] [address] 10/16/2024 Ezra Terrell Plan Of Treatment No Information Progress Notes * Francia PUTNAM EDOB:1965 (58 yo F)Acc No.[id number]:10/16/2024 Patient: Mak CONNER Francia Brian :1965 A ge:58 Y S ex:Female Address:[address] [place], [address] * true * Date: Generated for Busteri ng/Fakelseyg/eTransmitting on: 0 10/26/2024 08:41 AM EDT
--- OUTSIDE RECORDS SUMMARY | 2024-10-24 12:00 | XMS_ITS ---
Author Organization The [facility] in [place] Address [address] [place] [address] Care Team Providers Care Rn Cvicu Name Role Phone Ezra Terrell Primary Care Provider Allergies Allergen (clinical drug ingredient) Drug/Non Drug Allergy documented on EMR Reaction Allergy Type Onset Date Status aspirin Aspirin anaphylaxis Drug Allergy Activ e REASON FOR VISIT yearly wellness exam- due for labs as well, SEE PHQ Medications Medication SIG (Take, Route, Frequency, Duration) Notes Start Date End Date Status Simvastatin 20 MG TAKE 1 TABLET BY SCOTT TH EVERY DAY IN THE EVENING 30 DAYS for 90 Active Vitamin D3 50 MCG (1999 UT) TAKE 1 CAPSU LE BY MOUTH EVERY DAY for 90 days Active Venlafaxine HCl ER 75 MG TAKE 1 CAPSULE BY MOUTH EVERY DAY for 90 Active Ventolin HFA 108 (90 Base) MCG/ACT 2 puff as needed Inhalation every 4 hrs for 30 days PRN 09/13/2023 Active Pantoprazole Sodium 40 MG TAKE 1 TABLET BY MOUTH EVERY EVENING for 90 Active One Touch Ultra Test Strips - BID 09/12/2023 Active One Touch/One Touch II Starter - as directed In Vitro 09/12/2023 Active OLANZapine 2.5 MG TAKE 1 TABLET BY SCOTT TH TWICE A DAY FOR 30 DAYS for 90 Active metFORMIN HCl 500 MG 1 tablet with a kamron l Orally twice a day for 90 days Active Ferrous Sulfate 325 (65 Fe) MG 1 tablet Orally twice daily 10/13/2023 Active Glimepiride 1 MG TAKE 1 TABLET BY SCOTT TH EVERY DAY WITH BREAKFAST OR THE FIRST MAIN MEAL OF THE DAY FOR 90 DAYS Orally Once a day for 90 days Active Vitamin C Active Liothyronine Sodium 5 MCG 3 tablet on an empty stomach Orally Once a day for 90 days Active Social History Tobacco Use: Social History Observation Description Date Details (start date - stop date) Former Smoker 05/15/1983 - 05/15/1999 Tobacco Use/Smoking Question Answer Notes Patient is a former smoker When did you start smoking? 05/15/1983 When did you stop smoking? 05/15/1999 How long has it been since you last smoked? > 10 years Vital Signs Blood pressure systolic 138 mm Hg 10/25/19 25 Blood pressure diastolic 80 mm Hg 025 Height 64 in 10/24/2024 Weight 155.2 lbs 10/24/2024 BMI 26.64 kg/m2 10/24/2024 Encounters Encounter Location Date Provider Diagnosis [facility] [address] [place] [address] 10/24/2024 Ezra Jose Mariakaya Well adult Z00.0 0 Assessments Encounter Date Diagnosis (ICD Code) Assessment Notes Treatment Notes Treatment Clinical Notes Section Notes 10/24/2024 Well adult (ICD-10 - Z00.00) Plan Of Treatment Pending Test Test Name Order Date HEMOGLOBIN A1C (GLYCO) 10/24/2024 IRON, TOTAL 10/24/2024 LIPID PANEL (CHOL/TRIG/HDL/LDL) 10/25/19 25 THYROID PANEL (T4/TSH/FREE T3) CMP (COMP MET SOLANO) w/eGFR CKD-EPI 2024 CBC WITH DIFF 10/24/2024 Progress Notes * Francia PUTNAM EDOB:1965 (58 yo F)Acc No.[id number]:10/24/2024 UNLOCKED PROGRESS NOTE Progress Note Patient: Francia HYATT Provider: Sukh Terrell ([facility])MD :1965 A ge:58 Y S ex:Female Date:10/24/2024 [address] [facility] Check In:03:52 PM ESTCheck O ut:04:31 PM EST Subjective: * Chief Complaints: * 1 . Yearly wellness exam- due for labs as well. 2. SEE PHQ. * HPI: D epression Screening: PHQ-9 L ittle interest or pleasure in doing things?More than half the days F eeling down, depressed, or hopeless M ore than half the days T rouble falling or staying asleep, or sleeping too much N early every day F eeling tired or having little energy N early every day P oor appetite or overeating N early every day F eeling bad about yourself or that you are a failure, or have let yourself or your family down M ore than half the days T rouble concentrating on things, such as reading the newspaper or watching television M ore than half the days M oving or speaking so slowly that other people could have noticed; or the opposite, being so fidgety or restless that you have been moving around a lot more than usual S everal T houghts that you would be better off or of hurting yourself in some way S ever (Consider Suicide Assessment Risk) T otal Score 1 9 I nterpretation M oderately Severe Depression DM -sugar up can be - casn be over 200 - best it gets tyhyroid gerd 0 all working chol - checking on labs depression. * ROS: E ENT: hearing changes d enies. v isual changes d enies.?non-healing mouth sores d enies. s wollen glands or neck lumps d enies. h oarseness d enies. s ore throat d enies. d ifficulty swallowing d enies. n ose bleeds d enies. n nita congestion d enies. e ar ache d enies. e ar discharge?denies. r inging in ears d enies. l ight sensitivity d enies. e ye pain d enies. b lurring d enies. e ye irritation d enies. d ouble vision d enies.?vision loss d enies. G eneral/Constitutional: Sweats: D enies. F atigue d enies. S leep problems d enies. A norexia d enies. M alaise d enies. W eight loss d enies.?Fatigue or Weakness d enies. F ever or Chills d enies. C ardiovascular: Shortness of Breath w/lying flat d enies. L ightheadedness/dizziness d enies. C hest tightness/ heavy pressure d enies. S welling of legs, ankles, or feet d enies. W aking up with shortness of breath d enies. C hest pain denies. P alpitations d enies. W eight gain d enies. R espiratory: Chronic or frequent cough d enies. C oughing up blood?denies. D ifficulty breathing d enies. P roductive cough d enies. S noring?denies. S hortness of breath that awakens from sleep (PND) d enies. C hest pain d enies. S putum production d enies. W heezing d enies. M usculoskeletal: Joint pain d enies. J oint Fluid d enies. B ack pain d enies. K nee pain d enies. N gloria pain d enies. J oint Stiffness d enies. M uscle cramps d enies. W eakness of muscles d enies. A rthritis d enies. M uscle aches d enies. P ain in shoulder(s) d enies. S wollen joints d enies. * Medical History: I nsomnia, Bipolar 1 disorder, Fatigue, Anxiety, Cholelithiases, Syncope and collapse, Chronic otitis externa of left ear, Diabetes, Allergic rhinitis, Asthma, Hypercholesteremia, Migraine. * Surgical History: C ESAREAN DELIVERY x2 , APPENDECTOMY , Colonoscopy 01/27/2021, EGD 11/15/23. * Hospitalization/Major Diagno stic Procedure: C HEST PAIN 2008. * Family History: F ather: , Cancer- lung, diagnosed with Diabetes mellitus without mention of complication, type II or unspecified type, not stated as uncontrolled. M other: alive, Breast Cancer, diagnosed with Diabetes mellitus without mention of complication, type II or unspecified type, not stated as uncontrolled. S ister(s): alive, Breast cancer. D aughter(s): alive. 2 brother(s) , 1 sister(s) . 2 daughter(s) - healthy. . 1 Brother passed at 30- MVA. * Social History: T obacco Use: T obacco Use/Smoking P atient is a f ormer smoker W hen did you start smoking? 0 05/15/1983 W hen did you stop smoking? 0 05/15/1999 H ow long has it been since you last smoked??> 10 years * Medications: T aking Ferrous Sulfate 325 (65 Fe) MG Tablet 1 tablet Orally twice daily , Taking Glimepiride 1 MG Tablet TAKE 1 TABLET BY MOUTH EVERY DAY WITH BREAKFAST OR THE FIRST MAIN MEAL OF THE DAY FOR 90 DAYS Orally Once a day , Taking Liothyronine Sodium 5 MCG Tablet 3 tablet on an empty stomach Orally Once a day , Taking metFORMIN HCl 500 MG Tablet 1 tablet with a meal Orally twice a day , Taking OLANZapine 2.5 MG Tablet TAKE 1 TABLET BY MOUTH TWICE A DAY FOR 30 DAYS , Taking One Touch Ultra Test Strips - Miscellaneous BID , Taking One Touch/One Touch II Starter - Kit as directed In Vitro , Taking Pantoprazole Sodium 40 MG Tablet Delayed Release TAKE 1 TABLET BY MOUTH EVERY EVENING , Taking Simvastatin 20 MG Tablet TAKE 1 TABLET BY MOUTH EVERY DAY IN THE EVENING 30 DAYS , Taking Venlafaxine HCl ER 75 MG Capsule Extended Release 24 Hour TAKE 1 CAPSULE BY MOUTH EVERY DAY , Taking Ventolin HFA(Albuterol Sulfate HFA) 108 (90 Base) MCG/ACT Aerosol Solution 2 puff as needed Inhalation every 4 hrs , Notes to Pharmacist: PRN, Taking Vitamin C , Taking Vitamin D3 50 MCG (2000 UT) Capsule TAKE 1 CAPSULE BY MOUTH EVERY DAY , Discontinued levoFLOXacin 500 MG Tablet 1 tablet Orally Once a day , Medication List reviewed and reconciled with the patient * Allergies: A spirin: anaphylaxis - Allergy. Objective: * Vitals: W t:155.2lbs, Ht: 64 in, BP:138/80mm Hg, BMI:26.64Index, Ht-cm: 162.56 cm, Wt-k.4 kg. * Examination: P hysical Exam: GENERAL: w ell developed, well nourished, in no acute distress. HEAD: n ormocephalic/atraumatic. EYES: p upils equal, round and reactive to light, conjunctivae and sclerae normal. EARS: n o deformity or lesion of external ear, canals and TM appear normal bilaterally, TM's intact, not inflamed with normal light reflex, hearing grossly normal to conversational speech. NOSE: n o deformity, discharge, inflammation, or lesions.? MOUTH: m ucous membranes moist, normal oropharynx and posterior pharynx without lesions or exudates, tongue normal, dentition normal. NECK: n gloria supple, no masses or palpable cervical nodes, trachea midline, thyroid without nodules, masses, tenderness, or enlargement. CHEST: n o chest wall deformity, no chest wall tenderness.? LUNGS: n ormal respiratory effort and clear to auscultation, no wheezes, rales, or rhonchi, good air exchange. CARDIO: r egular rate and rhythm, normal S1 and S2, nor murmur, rub, or gallop. PULSES: n ormal capillary refill. ABDOMEN: s oft, non-distended, non-tender, no masses. MUSCULOSKELETAL: n o deformity or scoliosis noted, normal range of motion, joints normal, no erythema, edema, effusion, or ecchymosis. EXTREMITY: n o clubbing, cyanosis, edema, or deformity with normal ROM in both upper and lower bilateral extremities. NEUROLOGIC: g rossly normal. SKIN: n o rashes, ulcerations, or suspicious lesions. LYMPH NODES: n o cervical adenopathy, nodes normal. MENTAL STATUS: a lert and oriented x3, normal mood and affect. Assessment: * Assessment: 1. W ell adult - Z00.00 (Primary) Plan: * Treatment: * Preventive Medicine: Screenings/Counseling: B IL ACTION PLAN Above Normal BMI Follow-up D ietary management education, guidance, and counseling * * Electronic signature of Ezra Terrell MD, [phone] on 10/26/2024 at 08:41 AM EDT Sign off status: Pending Visit Status: C TERESA (Check Out) * Provider: Sukh Terrell ([facility])MD Date: 0 10/24/2024 Generated for Busteri vaibhav/Kishor/eTransmitting on: 0 10/26/2024 08:41 AM EDT History and Physical Notes * HPI (History of Present Illness) Category Sub-Category Detail Notes Category Not es Depression Screening PHQ-9 Little inte rest or pleasure in doing things: More than half the days DM -sugar up can be - casn be over 200 - best it gets tyhyroid gerd 0 all working chol - checking on labs depression Feeling down, depressed, or hopeless: Mo re than half the days Trouble falling or staying asleep, or sl eeping too much: Nearly every day Feeling tired or having little energy: N early every day Poor appetite or overeating: Nearly ever y day Feeling bad about yourself o r that you are a failure, or have let yourself or your family down: More than half the days Trouble concentrating on thi ngs, such as reading the newspaper or watching television: More than half the days Moving or speaking so slowly that other people could have noticed; or the opposite, being so fidgety or restless that you have been moving around a lot more than usual: Several days Thoughts that you would be b javon off or of hurting yourself in some way: Several days (Consider Suicide Assessment Risk) Total Score: 19 Interpretation: Moderately Severe Depres tatianna Examination Category Sub-Category Detail Notes Category Not es Physical Exam GENERAL: well developed, well nourished, in no acute distress HEAD: normocephalic/atraum atic EYES: pupils equal, round and reactive to light, conjunctivae and sclerae normal EARS: no deformity or lesi on of external ear, canals and TM appear normal bilaterally, TM's intact, not inflamed with normal light reflex, hearing grossly normal to conversational speech NOSE: no deformity, discha rge, inflammation, or lesions MOUTH: mucous membranes diana st, normal oropharynx and posterior pharynx without lesions or exudates, tongue normal, dentition normal NECK: neck supple, no mass es or palpable cervical nodes, trachea midline, thyroid without nodules, masses, tenderness, or enlargement CHEST: no chest wall deform ity, no chest wall tenderness LUNGS: normal respiratory e ffort and clear to auscultation, no wheezes, rales, or rhonchi, good air exchange CARDIO: regular rate and rhy thm, normal S1 and S2, nor murmur, rub, or gallop PULSES: normal capillary ref ill ABDOMEN: soft, non-distended, non-tender, no masses RECTAL: MUSCULOSKELETAL: no deformity or scol iosis noted, normal range of motion, joints normal, no erythema, edema, effusion, or ecchymosis EXTREMITY: no clubbing, cyanosi s, edema, or deformity with normal ROM in both upper and lower bilateral extremities NEUROLOGIC: grossly normal SKIN: no rashes, ulceratio ns, or suspicious lesions LYMPH NODES: no cervical adenopat hy, nodes normal MENTAL STATUS: alert and oriented x 3, normal mood and affect
--- OUTSIDE RECORDS SUMMARY | 2024-10-26 08:40 | XMS_ITS | CCD ---
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 Name Role Phone DR AMADO TERRELL Attending Unavailable SANDRAY, DR FISCHER Primary Care Unavailable SANDRAY, DR FISCHER Admitting Unavailable SANDRAY, DR FISCHER Consulting Unavailable SANDRAY, DR FISCHER Primary Care Unavailable NIDHI, DR FISCHER Admitting Unavailable SANDRAY, DR FISCHER Attending Unavailable SANDRAY, DR FISCHER Consulting Unavailable SANDRAY, DR FISCHER Primary Care Unavailable SANDRAY, DR FISCHER Admitting Unavailable NIDHI, DR FISCHER Attending Unavailable MD Amado Terrlel Primary Care Provider DO Elio Blackman Attending Provider [phone] Amado Terrell Primary Care Physician ELIO BLACKMAN Attending Unavailable ELIO BLACKMAN Referring Unavailable MD Maxime Encinas Attending Provider [phone] Self, Referral Attending Provider Unavailable DO Elio Blackman Referring Provider Maxime Encinas Attending Unavailable Maxime Encinas Admitting Unavailable Elio Blackman Referring Unavailable Self, Referral Attending Unavailable Self, Referral Admitting Unavailable Maxime ENCINAS Attending Unavailable Maxime ENCINAS Attending Unavailable Amado Terrell Referring Unavailable Maxime ENCINAS Attending Unavailable Allergies Allergy Classification Reported Allergen(s) Allergy Type Date of Onset Reaction(s) Facility (2 sources) Aspirin; Translations: [aspirin] Drug Allergy 5 [facility] Repository (2 sources) Aspirin; Translations: [aspirin] Drug Allergy Anaphylaxis (disorder) [facility] Medications Current Medications Medication Drug Class(es) Dates Sig (Normalized) Sig (Original) glimepiride 1 mg oral tablet (2 sources) Sulfonylurea Start: 09-20-2023 take 1 tablet by mouth once daily glimepiride 1 mg Tab 1 mg = 1 tab(s), Oral, Daily, Refills(s) 0 Start Date: 09/20/23 Status: Ordered liothyronine sodium 0.005 mg oral tablet (2 sources) l-Triiodothyronine Start: 10-03-2023 take 2 tablets by mouth once daily liothyronine 5 mcg Tab 10 mcg = 2 tab(s), Oral, Daily, Refills(s) 0 Start Date: 10/03/23 Status: Ordered metFORMIN hydrochloride 500 mg oral tablet (2 sources) Biguanide Start: 01-08-2021 take 1 tablet by mouth twice daily metformin 500 mg Tab 500 mg = 1 tab(s), Oral, BID, Refills(s) 0 Start Date: 01/08/21 Status: Ordered OLANZapine 2.5 mg oral tablet (2 sources) Atypical Antipsychotic Start: 09-20-2023 take 1 tablet by mouth twice daily ZyPREXA 2.5 mg Tab 2.5 mg = 1 tab(s), Oral, BID, Refills(s) 0 Start Date: 09/20/23 Status: Ordered pantoprazole 40 mg delayed release oral tablet (2 sources) Proton Pump Inhibitor Start: 09-20-2023 Protonix 40 mg Tab-DR 40 mg = 1 tab(s), Oral, BID, increased to BID 11/15/23, Refills(s) 0 Start Date: 09/20/23 Status: Ordered Start: 09-20-2023 take 1 tablet by [facility] once daily Protonix 40 mg Tab-DR 40 mg = 1 tab(s), Oral, Daily, Refills(s) 0 Start Date: 09/20/23 Status: Ordered simvastatin 20 mg oral tablet (2 sources) HMG-CoA Reductase Inhibitor Start: 09-20-2023 take 1 tablet by mouth once daily in the evening simvastatin 20 mg Tab 20 mg = 1 tab(s), Oral, qPM, Refills(s) 0 Start Date: 09/20/23 Status: Ordered 24 hr venlafaxine 75 mg extended release oral capsule (4 sources) Serotonin and Norepinephrine Reuptake Inhibitor Start: 10-03-2023 take 1 capsule by mouth once daily venlafaxine 75 mg Cap-ER 75 mg = 1 cap(s), Oral, Daily, Refills(s) 0 Start Date: 10/03/23 Status: Ordered Start: 01-08-2021 take 1 capsule by mo [facility] once daily venlafaxine 150 mg Cap-ER 150 mg = 1 cap(s), Oral, Daily, Refills(s) 0 Start Date: 01/08/21 Status: Ordered Ventolin HFA 90 mcg/inh Aerosol (2 sources) Start: 01-08-2021 take 2 puff(s) by inhalation four times daily Ventolin HFA 90 mcg/inh Aerosol 2 puff(s), Inhalation, QID sh, Refill(s) 0 Start Date: 01/08/21 Status: Ordered Vitamin D2 2000 intl units oral capsule (2 sources) Start: 09-20-2023 take 1 capsule by mouth once daily Vitamin D2 2000 intl units oral capsule 50 mcg = 1 cap(s), Oral, Daily, Refills(s) 0 Start Date: 09/20/23 Status: Ordered Problems Active Problems Problem Classification Problem Date Documented Date Episodic/Chronic Abdominal hernia (1 source) Diaphragmatic hernia; Translations: [Diaphragmatic hernia without obstruction or gangrene] Onset: 12-01-2023 Episodic Anxiety disorders (2 sources) Anxiety 09-20-2023 Chronic Asthma (2 sources) Asthma 01-08-2021 Chronic Biliary tract disease (2 sources) Biliary calculus 01-08-2021 Episodic Diabetes mellitus without complication (2 sources) Diabetes mellitus 01-08-2021 Chronic Disorders of lipid metabolism (3 sources) Pure hypercholesterolemia, unspecified; Translations: [Pure hypercholesterolemia] Onset: 02-10-2022 01-08-2021 Chronic Esophageal disorders (7 sources) Gastroesophageal reflux disease without esophagitis; Translations: [Gastro-esophageal reflux disease without esophagitis] Onset: 10-03-2023 Chronic Headache; including migraine (2 sources) Migraine 01-08-2021 Chronic Mood disorders (2 sources) Bipolar disorder 01-08-2021 Chronic Nutritional deficiencies (1 source) Vitamin D deficiency, unspecified; Translations: [VITAMIN D DEFICIENCY UNSPECIFIED] Onset: 02-10-2022 Chronic Other circulatory disease (2 sources) Feeling of lump in throat 10-03-2023 Episodic Other nutritional; endocrine; and metabolic disorders (2 sources) Body mass index 25-29 - overweight 01-12-2021 Episodic Other nutritional; endocrine; and metabolic disorders (2 sources) Overweight 09-20-2023 Episodic Other screening for suspected conditions (not mental disorders or infectious disease) (1 source) Encounter for screening mammogram for malignant neoplasm of breast; Translations: [Encounter for screening mammogram for malignant neoplasm of breast] Onset: 11-23-2023 Episodic Other upper respiratory disease (2 sources) Allergic rhinitis 01-08-2021 Chronic Residual codes; unclassified (2 sources) Insomnia 09-20-2023 Episodic Unclassified (1 source) CONTACT W/AND (SUSP) EXPOS COVID-19; Translations: [CONTACT W/AND (SUSP) EXPOS COVID-19] Onset: 08-25-2021 Unclassified (2 sources) Patient encounter status 01-12-2021 Past or Other [...] Test Name Value Interpretation Reference Range Facility Ambulatory Visit Summaryon 0 12-01-2023 Ambulatory Visit Summary Ambulatory Visit Summary JUSTIN ABARCA :1965 Visit Date:12/01/2023 Ambulatory Visit Instructions Your Care Team Attending Physician - Maxime ENCINAS MD Primary Care Physician - Amado Terrell MD This Is Your Medications List albuterol (Ventolin HFA 90 mcg/inh Aerosol) ergocalciferol (Vitamin D2 2000 intl units oral capsule) glimepiride (glimepiride 1 mg Tab) liothyronine (liothyronine 5 mcg Tab) metformin (metformin 500 mg Tab) olanzapine (ZyPREXA 2.5 mg Tab) pantoprazole (Protonix 40 mg Tab-DR) simvastatin (simvastatin 20 mg Tab) venlafaxine (venlafaxine 150 mg Cap-ER) venlafaxine (venlafaxine 75 mg Cap-ER) Procedures Performed EGD - esophagogastroduodenoscopy (11/15/2023), Colonoscopy (01/27/2021), Appendectomy, section, section. Medications What How Much When Instructions Unchanged albuterol (Ventolin HFA 90 mcg/ inh Aerosol) 2 Puffs Inhalation 4 times a day as needed for sh Unchanged ergocalciferol (Vitamin D2 2000 intl units oral capsule) 1 Capsules By Mouth Every day Unchanged glimepiride (glimepiride 1 mg Tab) 1 Tablets By Mouth Every day Unchanged liothyronine (liothyronine 5 mcg Tab) 2 Tablets By Mouth Every day Unchanged metformin (metformin 500 mg Tab) 1 Tablets By Mouth 2 times a day Unchanged olanzapine (ZyPREXA 2.5 mg Tab) 1 Tablets By Mouth 2 times a day Unchanged pantoprazole (Protonix 40 mg Tab-DR) 1 Tablets By Mouth 2 times a day increased to BID Unchanged simvastatin (simvastatin 20 mg Tab) 1 Tablets By Mouth Once a day (in the evening) Unchanged venlafaxine (venlafaxine 150 mg Cap-ER) 1 Capsules By Mouth Every day Unchanged venlafaxine (venlafaxine 75 mg Cap-ER) 1 Capsules By Mouth Every day Allergies aspirin (Anaphylaxis) Problems Ongoing - Any [...] for choosing us for your care. Normal [facility] General Surgery Office/Clini c Noteon 12-01-2023 General Surgery Office/Clinic Note General Surgery Office/Clinic Note Chief Complaint post operative follow up HPI Staff 16 day post operative follow up post EGD with gastric polypectomy. Taking Protonix BID with noted improvement in GERD symptoms. History of Present Illness s/p EGD due to refractory GERD; small hiatal hernia found as well as hyperplastic gastric polyp, bx negative for H pylori; Protonix increased to bid with improvement in symptoms. Review of Systems ROS - Provider Constitutional: no fever, no sweats, no weight loss. Eyes: no glasses, no blurred vision, no visual loss. ENMT: no dentures, no hoarseness, no swallowing difficulties, no hearing loss, no ear [...] been reviewed and are negative or noncontributory. Assessment/Plan 1. Hiatal hernia with GERD (K44.9: Diaphragmatic hernia without obstruction or gangrene) continue Protonix bid for 8 weeks; frequent small meals, avoid caffeine and carbonated beverages. call with problems/questions. Gastro-esophageal reflux disease without esophagitis (K21.9: Gastro-esophageal reflux disease without esophagitis) Follow-up No qualifying data available Problem List/Past Medical History Ongoing Allergic rhinitis Anxiety Asthma Bipolar disorder BMI 28.0-28.9,adult Cholelithiasis Chronic GERD Diabetes Gastroesophageal reflux disease Globus sensation Hiatal hernia with GERD Insomnia Migraines Overweight Pure hypercholesterolemia Screening for malignant neoplasm of colon Historical No qualifying data Procedure/Surgical History EGD - esophagogastroduodenoscopy (11/15/2023), Colonoscopy (01/27/2021), Appendectomy, section, section. Medications glimepiride 1 mg Tab, 1 mg= 1 tab(s), Oral, Daily liothyronine 5 mcg Tab, 10 mcg= 2 tab(s), Oral, Daily metformin 500 mg Tab, 500 mg= 1 tab(s), Oral, BID Protonix 40 mg Tab-DR, 40 mg= 1 tab(s), Oral, BID simvastatin 20 mg Tab, 20 mg= 1 [...] Tobacco Use:. Cigarettes, 20 per day. Started age 17.0 Years. Stopped age 34 Years., 10/03/2023 Family History Cancer: Father. Diabetes mellitus type 2: Mother and Father. Pancreatic adenocarcinoma: Brother. Primary malignant neoplasm of female breast: Mother and Sister. Primary malignant neoplasm of lung: Father. Immunizations Vaccine Date Status SARS-CoV-2 (COVID-19) mRNA-1273 vaccine 05/10/2021 Recorded SARS-CoV-2 (COVID-19) mRNA-1273 vaccine 09/02/2020 Recorded SARS-CoV-2 (COVID-19) mRNA-1273 vaccine 07/27/2020 Recorded Normal [facility] Comment on above: Result Comment: Elec tronically Signed By: ZIGGY ROWAN, Maxime Vo\hebert\Date and Time Signed: 12/01/23 13:29 EDT MM screening mammo BI w/CADo n 11-23-2023 MM screening mammo BI w/CAD [facility] [place] [address] Mammography Report Signed Patient: Justin Abarca MR#: [id number] : 1965 Acct:[id number] Age/Sex: 58 / F ADM Date: 11/23/23 Loc: [place] Room: Type: [facility] CLI Attending Dr: Referral Self Copies to: Elio Blackman, SELF,REFERRAL Ordering Provider: SELF,REFERRAL Date of Service: 11/23/23 MM/MM screening mammo BI w/CAD: SCREENING CLINICAL DATA: Screening for malignancy. BILATERAL SCREENING MAMMOGRAMS - FULL FIELD DIGITAL WITH TOMOSYNTHESIS AND CAD Tomosynthesis craniocaudal and mediolateral oblique views of both breasts were obtained using low- dose digital technique. Comparison is made to prior studies from 11/11/2022, 07/08/2020, 07/05/2019, and 07/05/2018. This examination was reviewed with the aid of CAD. The breast parenchyma is heterogeneously dense. Benign-appearing calcifications are present bilaterally. There are no dominant masses, typically malignant calcifications or architectural distortion. There has been no significant interval change. MM/MM screening mammo BI w/CAD IMPRESSION: NO MAMMOGRAPHIC EVIDENCE OF MALIGNANCY. ROUTINE FOLLOW-UP IS RECOMMENDED IN ONE YEAR. RESULT CODE: 2 Benign Findings(s) DENSITY CODE: 3 (approximately 51-75% glandular) FOLLOW UP: 1YR The false-negative rate of mammography is approximately 10-percent. Management of a palpable abnormality must be based on clinical grounds. Patient was entered into a reminder system with a target due date for the next mammogram. Impression dictated by: Dion Pinon M.D.11/23/2023 4:38 PM Dictation Location: [facility] Transcribed By: [facility] 11/23/23 1638 Dictated By: Dion Pinon II, MD 11/23/23 163 Signed By: 11/23/23 1638 Normal [facility] Chuckie 11-15-2023 L Specimen: [id number] eceived: 11/15/23 Status: TAMARA Patten Num: [id number] Spec Type: Surgical Subm Dr: Maxime Encinas MD FACS Tissues: A Gastric Biopsy (GASTRIC POLYP) Procedures: HE/2, Gross/Micro L4 Age/ Patient Sex Location Account Attending Physician Justin Abarca 57/F LABELL [id number] Maxime Encinas MD FACS SPEC NUM: [id number] RECD: 11/15/23 STATUS: TAMARA PATTEN NUM: [id number] NING: 11/15/230843 SUBM DR: Maxime Encinas MD FACS ENTERED: 11/15/[address] [facility] DR: Analy Chen SPEC TYPE: Surgical DEPT: CRISTIN TORRES ORDERED: HE/2, Gross/Micro L4 ORDERED: HE, Gross/Micro L4 Pathological Diagnosis Gastric polyp biopsy: -Consistent with small hyperplastic polyp with the associated reactive foveolar glandular proliferation, otherwise without glandular dysplasia, intestinal metaplasia, or any significant stromal chronic inflammation observed -Also no any other specific features of Helicobacter infection per routine H E morphological assessment Clinical Information Small hiatal hernia, gastric polyp. Gross Description Received in formalin labeled with the patient's name, date of and gastric polyp is a 0.2 x 0.2 x 0.1 cm perla polypoid tissue fragment, entirely submitted in A1. Microscopic Description Microscopic examinations are performed supporting the above interpretation -------- Specimen: [id number] Received: 11/15/23 Status: TAMARA Patten Num: [id number] Spec Type: Surgical Subm Dr: Maxime Encinas MD FACS Tissues: A Gastric Biopsy (GASTRIC POLYP) Procedures: RADHA/2, Gross/Micro L4 -------- Patient: PetrosJustin downs Deng [id number] (Continued) -------- Specimen: [id number] Received: 11/15/23 (Continued) Signed (signature on file) Kunal Blancas MD 11/18/23 1100 -------- Specimen: [id number] Received: 11/15/23 Status: TAMARA Patten Num: [id number] Spec Type: Surgical Subm Dr: Maxime Encinas MD [facility] Tissues: A Gastric Biopsy (GASTRIC POLYP) Procedures: HE/Jose, Gross/Micro L4 -------- Patient: Justin Abarca [id number] (Continued) -------- Specimen: [id number] Received: 11/15/23 (Continued) CPT Codes 38267 -------- -------- Specimen: [id number] Received: 11/15/23 Status: TAMARA Sandor Num: [id number] Spec Type: Surgical Subm Dr: Maxime Encinas MD FACS Tissues: A Gastric Biopsy (GASTRIC POLYP) Procedures: HE/Jose, Gross/Micro L4 -------- Patient: Justin Abarca [id number] (Continued) -------- Signed (signature on file) Kunal Blancas MD 11/18/23 1100 Normal [facility] Insurance Correspondenceon 0 11-07-2023 Insurance Correspondence [id number]#1.00TIFF Normal [facility] Consent for Procedure/Surger yon 10-05-2023 Consent for Procedure/Surgery [id number]#1.00TIFF Normal [facility] Physician Referralon 024 Physician Referral [id number]#1.00TIFF Normal [facility] Facesheeton 10-04-2023 Facesheet [id number]#1.00TIFF Normal [facility] Ambulatory Visit Summaryon 0 10-03-2023 Ambulatory Visit Summary JUSTIN ABARCA :1965 MRN:--[id number] Visit Date:10/03/2023 Ambulatory Visit Instructions Your Care [...] for choosing us for your care. Normal [facility] Physician Referralon 024 Physician Referral [id number]#1.00TIFF Normal [facility] Physician Referral [id number]#1.00TIFF Normal [facility] T4 [facility]on 02-09-2022 T4 [Mass/Vol] 6.2 ug/dL Normal 4.5-12.0 [facility] Comment on above: Performed By: #### T 4LC #### [facility] [address] [address] [address] Christiane Blancas CBC AUTO DIFFon 02-08-2022 BASO # 0.1 103/ul Normal 0.0-0.1 [facility] Comment on above: Performed By: #### C BC #### [facility] [address] [place] [address] Dr. Christiane Blancas Basophils/100 WBC (Bld) 1.6 % Normal 0.2-2.0 [facility] Comment on above: Performed By: #### C BC #### [facility] [address] [place] [address] Dr. Christiane Blancas EO # 0.1 103/ul Normal 0.0-0.7 [facility] Comment on above: Performed By: #### C BC #### [facility] [address] [place] [address] Dr. Christiane Blancas Eosinophils/100 WBC (Bld) 1.6 % Normal 0.9-7.0 [facility] Comment on above: Performed By: #### C BC #### [facility] [address] [place] [address] Dr. Chirstiane Blancas Erythrocyte distribution width (RBC) [Ratio] 15.7 % Critically high 11.0-15.0 [facility] Comment on above: Performed By: #### C BC #### [facility] [address] [place] [address] Dr. Christiane Blancas Hematocrit (Bld) [Volume fraction] 39.6 % Normal 36.0-48.0 [facility] Comment on above: Performed By: #### C BC #### [facility] [address] [place] [address] Dr. Christiane Blancas Hemoglobin (Bld) [Mass/Vol] 12.1 g/dL Normal 12.0-16.0 [facility] Comment on above: Performed By: #### C BC #### [facility] [address] [place] [address] Dr. Christiane Blancas IG # 0.02 10e3/ul Normal 0.00-0.03 [facility] Comment on above: Performed By: #### C BC #### [facility] [address] [place] [address] Dr. Christiane Blancas IG % 0.3 % Normal 0.0-0.5 [facility] Comment on above: Performed By: #### C BC #### [facility] [address] [place] [address] Dr. Christiane Blancas LYMPH # 1.7 103/ul Normal 1.2-3.8 [facility] Comment on above: Performed By: #### C BC #### [facility] [address] [place] [address] Dr. Christiane Blancas Lymphocytes/100 WBC (Bld) 30.4 % Normal 20.5-60.0 [facility] Comment on above: Performed By: #### C BC #### [facility] [address] [place] [address] Dr. Christiane Blancas MANUAL DIFF REQ NO Normal [facility] Comment on above: Performed By: #### C BC #### [facility] [address] [place] [address] Dr. Christiane Blancas MCH (RBC) [Entitic mass] 25.5 pg Critically low 26.7-34.0 [facility] Comment on above: Performed By: #### C BC #### [facility] [address] [place] [address] Dr. Christiane Blancas MCHC (RBC) [Mass/Vol] 30.6 g/dL Normal 29.9-35.2 [facility] Comment on above: Performed By: #### C BC #### [facility] [address] [place] [address] Dr. Christiane Blancas MCV (RBC) [Entitic vol] 83.4 fL Normal 81.0-99.0 [facility] Comment on above: Performed By: #### C BC #### [facility] [address] [place] [address] Dr. Christiane Blancas MONO # 0.4 103/ul Normal 0.3-0.8 [facility] Comment on above: Performed By: #### C BC #### [facility] [address] [place] [address] Dr. Christiane Blancas Monocytes/100 WBC (Bld) 7.5 % Normal 1.7-12.0 [facility] Comment on above: Performed By: #### C BC #### [facility] [address] [address] [address] Christiane Blancas NEUT # 3.4 103/ul Normal 1.4-6.5 [facility] Comment on above: Performed By: #### C BC #### [facility] [address] [place] [address] Dr. Christiane Blancas Neutrophils/100 WBC (Bld) 58.6 % Normal 43.0-75.0 [facility] Comment on above: Performed By: #### C BC #### [facility] [address] [place] [address] Dr. Christiane Blancas Platelet mean volume (Bld) [Entitic vol] 9.9 fL Normal 9.5-13.5 [facility] Comment on above: Performed By: #### C BC #### [facility] [address] [place] [address] Dr. Christiane Blancas PLT 251 103/ul Normal 150-450 [facility] Comment on above: Performed By: #### C BC #### [facility] [address] [place] [address] Dr. Christiane Blancas RBC 4.75 106/ul Normal 4.20-5.40 [facility] Comment on above: Performed By: #### C BC #### [facility] [address] [place] [address] Dr. Christiane Blancas WBC 5.7 103/ul Normal 4.0-11.0 [facility] Comment on above: Performed By: #### C BC #### [facility] [address] [place] [address] Dr. Christiane Blancas FREE T3on 02-08-2022 FREE T3 2.37 pg/mlL Normal 2.18-3.98 [facility] Comment on above: Performed By: #### F T3, CMP, LIPID, TSH #### [facility] [address] [place] [address] Dr. Christiane Blancas GLYCOHEMOGLOBIN A1Con 2021 ADA RECOMMENDATION SEE BELOW Normal [facility] Comment on above: Result Comment: ADA RECOMMENDED LIMIT 4.0 - 6.0 ADA THERAPEUTIC TARGET < 7.0 ACTION SUGGESTED > 7.0 Performed By: #### A 1C #### [facility] [address] [address] [address] Christiane Blancas Glucose [Mass/Vol] 123 mg/dL Normal [facility] Comment on above: Performed By: #### A 1C #### [facility] [address] [address] [address] Christiane Blancas HbA1c (Bld) [Mass fraction] 5.9 % Normal 4.5-6.2 [facility] Comment on above: Performed By: #### A 1C #### [facility] [address] [address] [address] Christiane Blancas LIPID PROFILEon 02-08-2022 CHOL-HDL RATIO NORM SEE BELOW Normal [facility] Comment on above: Result Comment: 3.3 - 4.4 LOW RISK 4.4 - 7.1 AVERAGE RISK 7.1 - 11.0 MODERATE RISK >11.0 HIGH RISK Performed By: #### F T3, CMP, LIPID, TSH #### [facility] [address] [address] [address] Christiane Blancas Cholesterol [Mass/Vol] 226 mg/dL Critically high <=200 [facility] Comment on above: Performed By: #### F T3, CMP, LIPID, TSH #### [facility] [address] [address] [address] Christiane Blancas Cholesterol in HDL [Mass/Vol] 36 mg/dL Critically low 40-60 [facility] Comment on above: Performed By: #### F T3, CMP, LIPID, TSH #### [facility] [address] [address] [address] Christiane Blancas Cholesterol in LDL [Mass/Vol] 150.6 mg/dL Normal [facility] Comment on above: Performed By: #### F T3, CMP, LIPID, TSH #### [facility] [address] [address] [address] Christiane Blancas Cholesterol.total/C holesterol in HDL [Mass ratio] 6.3 {ratio} Normal [facility] Comment on above: Performed By: #### F T3, CMP, LIPID, TSH #### [facility] [address] [address] [address] Christiane Blancas HDL NORMAL > or = 60 mg/dl - LO W CARDIOVASCULAR RISK <40 mg/dl - HIGH CARDIOVASCULAR RISK Normal [facility] Comment on above: Performed By: #### F T3, CMP, LIPID, TSH #### [facility] [address] [address] [address] Christiane Blancas LDL CALC NORMAL SEE BELOW Normal [facility] Comment on above: Result Comment: <100 mg/dl OPTIMAL 100 - 129 mg/dl NEAR OR ABOVE OPTIMAL 130 - 159 mg/dl BORDERLINE HIGH 160 - 189 mg/dl HIGH >190 mg/dl VERY HIGH Performed By: #### F T3, CMP, LIPID, TSH #### [facility] [address] [address] [address] Christiane Blancas Triglyceride [Mass/Vol] 197 mg/dL Critically high <=150 [facility] Comment on above: Performed By: #### F T3, CMP, LIPID, TSH #### [facility] [address] [address] [address] Christiane Blancas VLDL CALC 39.4 mg/dL Normal [facility] Comment on above: Performed By: #### F T3, CMP, LIPID, TSH #### [facility] [address] [place] [address] Dr. Christiane Blancas PROF 14(COMP METB)on 022 Albumin [Mass/Vol] 3.8 g/dL Normal 3.4-5.0 [facility] Comment on above: Performed By: #### F T3, CMP, LIPID, TSH #### [facility] [address] [place] [address] Dr. Christiane Blancas Albumin/Globulin [Mass ratio] 1.2 {ratio} Normal [facility] Comment on above: Performed By: #### F T3, CMP, LIPID, TSH #### [facility] [address] [place] [address] Dr. Christiane Blancas ALP [Catalytic activity/Vol] 66 U/L Normal 46-116 [facility] Comment on above: Performed By: #### F T3, CMP, LIPID, TSH #### [facility] [address] [address] [address] Christiane Blancas ALT [Catalytic activity/Vol] 44 U/L Normal 14-59 [facility] Comment on above: Performed By: #### F T3, CMP, LIPID, TSH #### [facility] [address] [address] [address] Christiane Blancas Anion gap [Moles/Vol] 13.8 mmol/L Normal [facility] Comment on above: Performed By: #### F T3, CMP, LIPID, TSH #### [facility] [address] [address] [address] Christiane Blancas AST [Catalytic activity/Vol] 26 U/L Normal 15-37 [facility] Comment on above: Performed By: #### F T3, CMP, LIPID, TSH #### [facility] [address] [address] [address] Christiane Blancas Bilirubin [Mass/Vol] 0.4 mg/dL Normal 0.2-1.0 [facility] Comment on above: Performed By: #### F T3, CMP, LIPID, TSH #### [facility] [address] [address] [address] Christiane Blancas Calcium [Mass/Vol] 8.9 mg/dL Normal 8.5-10.1 [facility] Comment on above: Performed By: #### F T3, CMP, LIPID, TSH #### [facility] [address] [address] [address] Christiane Blancas Chloride [Moles/Vol] 107 mmol/L Normal 98-107 [facility] Comment on above: Performed By: #### F T3, CMP, LIPID, TSH #### [facility] [address] [address] [address] Christiane Blancas CO2 [Moles/Vol] 27.1 mmol/L Normal 21.0-32.0 [facility] Comment on above: Performed By: #### F T3, CMP, LIPID, TSH #### [facility] [address] [address] [address] Christiane Blancas Creatinine [Mass/Vol] 0.92 mg/dL Normal 0.55-1.02 [facility] Comment on above: Performed By: #### F T3, CMP, LIPID, TSH #### [facility] [address] [address] [address] Christiane Blancas EGFR-AF TUVALUAN >60 Normal >=60 [facility] Comment on above: Performed By: #### F T3, CMP, LIPID, TSH #### [facility] [address] [address] [address] Christiane Blancas EGFR-NON AF TUVALUAN >60 Normal >=60 [facility] Comment on above: Performed By: #### F T3, CMP, LIPID, TSH #### [facility] [address] [address] [address] Christiane Blancas Globulin (S) [Mass/Vol] 3.2 g/dL Normal [facility] Comment on above: Performed By: #### F T3, CMP, LIPID, TSH #### [facility] [address] [place] [address] Dr. Christiane Blancas Glucose [Mass/Vol] 165 mg/dL Critically high 74-106 [facility] Comment on above: Performed By: #### F T3, CMP, LIPID, TSH #### [facility] [address] [place] [address] Dr. Christiane Blancas Potassium [Moles/Vol] 3.9 mmol/L Normal 3.5-5.1 [facility] Comment on above: Performed By: #### F T3, CMP, LIPID, TSH #### [facility] [address] [place] [address] Dr. Christiane Blancas Protein [Mass/Vol] 7.0 g/dL Normal 6.4-8.2 [facility] Comment on above: Performed By: #### F T3, CMP, LIPID, TSH #### [facility] [address] [place] [address] Dr. Christiane Blancas Sodium [Moles/Vol] 144 mmol/L Normal 136-145 [facility] Comment on above: Performed By: #### F T3, CMP, LIPID, TSH #### [facility] [address] [place] [address] Dr. Christiane Blancas Urea nitrogen [Mass/Vol] 12.0 mg/dL Normal 7.0-18.0 [facility] Comment on above: Performed By: #### F T3, CMP, LIPID, TSH #### [facility] [address] [address] [address] Christiane Blancas Urea nitrogen/Creatinine [Mass ratio] 13.0 mg/mg Normal [facility] Comment on above: Performed By: #### F T3, CMP, LIPID, TSH #### [facility] [address] [place] [address] Dr. Christiane Blancas TSHon 02-08-2022 TSH 1.752 uIU/mL Normal 0.358-3.740 [facility] Comment on above: Performed By: #### F T3, CMP, LIPID, TSH #### [facility] [address] [place] [address] Dr. Christiane Blancas VITAMIN D 25 OHon 02-08-2022 VIT D 25-OH 21.5 ng/mL Normal [facility] Comment on above: Performed By: #### V ITAD #### [facility] [address] [place] [address] Dr. Christiane Blanacs VIT D RANGES SEE BELOW Normal [facility] Comment on above: Result Comment: <20 ng/mL Vit D deficient 20 - <30 ng/mL Vit D insufficient 30 - 100 ng/mL Vit D sufficient >100 ng/mL Potential Toxicity Performed By: #### V ITAD #### [facility] [address] [place] [address] Dr. Christiane Blancas [facility]13 SARS-CoV-2 (COVID-19) RNA CHRIS+probe Ql [...] for this test is supported by the [employer] Combination of Health and Human Service's (HHS's) declaration [...] SARS-CoV-2. Performed By: #### C VDTB #### [facility] [address] [place] [address] Dr. Christiane Blancas INFLUENZA A AND B AGon 08-23 [facility] SEE BELOW Normal [facility] Comment on above: Result Comment: Nega tive for Flu A protein angiten. Infection due to Flu A cannot be ruled out. Flu A angiten in the sample may be below the detection limit of the test. Performed By: #### I NFLUAB #### [facility] [address] [place] [address] Dr. Christiane Blancas [facility] SEE BELOW Normal [facility] Comment on above: Result Comment: Nega tive for Flu B protein antigen. Infection due to Flu B cannot be ruled out. Flu B antigen in the sample may be below the detection limit of the test. Performed By: #### I NFLUAB #### [facility] [address] [place] [address] Dr. Christiane Blnacas INFLUENZA A AG Negative Normal NEGATIVE SEE COMMENT [facility] Comment on above: Performed By: #### I NFLUAB #### [facility] [address] [place] [address] Dr. Christiane Blancas INFLUENZA B AG Negative Normal NEGATIVE SEE COMMENT [facility] Comment on above: Performed By: #### I NFLUAB #### [facility] [address] [place] [address] Dr. Christiane Blancas INTERNAL CONTROLS Within Normal Limits Normal Wi thin Normal Limits [facility] Comment on above: Performed By: #### I NFLUAB #### [facility] [address] [address] [address] Christiane Blancas Vital Signs Date Time Vital Sign Value Performing Clinician Santino jarvis 10-03-2023 13:55-0400 Blood Pressure Location Maxime ZIGGY [facility] 10-03-2023 13:55-0400 Diastolic blood pressure 80 mm[Hg] Maxime ZIGGY [facility] 10-03-2023 13:55-0400 Heart rate 72 /min Maxime ZIGGY [facility] 10-03-2023 13:55-0400 Systolic blood pressure 122 mm[Hg] Maxime ENCINAS [facility] Encounters Encounter Date Encounter Type Care Provider Facility Start: 12-01-2023 End: 12-01-2023 ambulatory Maxime ENCINAS Facility: [place] Start: 12-01-2023 End: 12-01-2023 Patient encounter procedure Maxime ENCINAS [facility] Start: 11-24-2023 ambulatory Maxime ENCINAS Facility:[facility] [place] Start: 11-23-2023 End: 11-23-2023 Patient encounter procedure DO Elio Visci Work Phone: [facility] Work Phone: Start: 11-23-2023 End: 11-23-2023 ambulatory DO Elio Visci Work Phone: [facility] Work Phone: Start: 11-15-2023 End: 11-15-2023 ambulatory Maxime Encinas [facility] Work Phone: Start: 11-15-2023 End: 11-15-2023 Departed Referred MD Maxime Encinas Work Phone: [facility] Start: 11-15-2023 End: 11-15-2023 ambulatory Maxime ENCINAS Facility:[id number] Start: 11-09-2023 End: 11-09-2023 ambulatory ELIO A VISCI Not Available Start: 10-03-2023 End: 10-03-2023 ambulatory Maxime ENCINAS Facility[facility] Start: 10-03-2023 End: 10-03-2023 Patient encounter procedure Maxime ENCINAS [facility] Start: 11-11-2022 End: 11-11-2022 ambulatory MD Amado Terrell Work Phone: [facility] Work Phone: Start: 11-11-2022 End: 11-11-2022 Patient encounter procedure MD Amado Terrell Work Phone: [facility] Work Phone: Start: 06-29-[address] AMADO TERRELL Facility :[facility] Start: 02-10-2022 Encounter for genera l adult medical examination without abnormal findings DR AMADO TERRELL [facility] Start: 02-08-2022 End: 02-09-[address] AMADO TERRELL Facility:[facility] Start: 02-08-2022 End: 02-09-2022 Encounter for general adult medical examination without abnormal findings DR AMADO TERRELL Facility:[facility] Start: 08-23-2021 End: 08-23-[address] AMADO TERRELL Facility: Procedures Date Procedure Procedure Detail Performing Clinician Start: 11-23-2023 Screening mammography of bilateral breasts DO Elio Visci Work Phone: Start: 11-15-2023 Esophagogastroduodenoscopy Maxime ENCINAS Start: 11-11-2022 Screening mammography of bilateral breasts MD Amado Terrell Work Phone: Start: 01-27-2021 Colonoscopy Maxime ENCINAS Appendectomy Maxime ENCINAS section Maxime NIL L section Maxime Vilchis Comment on above: x 2 Immunizations Immunization Date Immunization Notes Care Provider Fa cili 05-10-2021 SARS-CoV-2 (COVID-19 ) mRNA-1273 vaccine Maxime ENCINAS [facility] 09-02-2020 SARS-CoV-2 (COVID-19 ) mRNA-1273 vaccine Maxime ENCINAS [facility] 07-27-2020 SARS-CoV-2 (COVID-19 ) mRNA-1273 vaccine Maxime ENCINAS [facility] Payers Date Payer Category Payer Self-pay [id number] 2022 Medicaid [id number] 1965 Unknown [id number] 2.16.84 [id number] 1966 Unknown [id number] 2.16.84 [id number] 1966 Unknown [id number] 2.16.84 [id number] 1966 Unknown [id number] 2.16.84 [id number] 1966 Unknown [id number] 2.16.8 [id number] 1966 Unknown [id number] 2.16.8 [id number] 1966 Unknown [id number] 2.16.8 [id number] 1958 Self-pay [id number] 1958 Unknown [id number] Unknown [place] [employer] [id number] Unknown [id number] 2.16.8 [id number] Unknown [id number] 2.16.8 [id number] Social History Date Type Detail Facility Tobacco smoking stat [facility] Unknown if ever smoked [facility] Work Phone: Start: 1965 Sex Assigned At Female Kaela [facility] Start: 10-03-2023 Tobacco smoking status Ex-smoker (fi nding) [facility] Tobacco smoking status Never [facility] Sex Assigned At Female [facility] Functional Status Date Assessment Result Facility 10-03-2023 Functional Status N/A [facility] Clinical Note 10-03-2023 Note Date & Type [...] day. Started ag (more content not included)... [facility] Comment on above: Result Comment: Elec tronically Signed By: ZIGGY ROWAN, Maxime Loredo\Date and Time Signed: 10/03/23 14:39 EDT Evaluation + Plan note Note Date & Type Note Facility Evaluation + Plan note No data available for this section [facility] Evaluation note Note Date & Type Note Facility Evaluation note No assessment information shara sanches [facility] Work Phone: Hospital Discharge instructions Note Date & Type Note Facility Hospital Discharge instructions No data available for this section [facility] Progress note Note Date & Type Note Facility Progress note No data available for this section [facility] Summary Purpose Family History No Family History Records Found No data available for this section No Family History Records FoundNo Family History Records Found No data available for this section No Family History Records Found Advance Directives No Advanced Directives Records Found Advance Directive Response Recorded Date/ Time Advance Directives No June 20, 2017 4:10pm Chief Complaint and Reason for Visit Chief Complaint Screening Chief Complaint Unknown Chief Complaint Unknown Screening Additional Source Comments INFORMATION SOURCE (unrecogn ized section and content) DATE CREATED AUTHOR 06/29/2022 [facility] DATE CREATED AUTHOR AUTHOR'S ORGANIZ ATION 11/11/2023 [facility] EPIC DATE CREATED AUTHOR AUTHOR'S ORGANIZ ATION 11/29/2023 [facility] DATE CREATED AUTHOR AUTHOR'S ORGANIZ ATION 12/04/2023 [facility] Care Teams (unrecognized sec tion and content) Team Status: Active Member Role Status Dates Amado Terrell MD Primary Care Provider Active Team Status: Inactive Member Role Status Dates Amado Terrell MD Primary Care Provider Active Elio Blackman DO Attending Provider Active Team Status: Inactive Member Role Status Dates Maxime Encinas MD FACS Attending Provider Active Start: November 15, 2023 End: November 15, 2023 Team Status: Inactive Member Role Status Dates Referral Self Attending Provider Active Start: Yoandy hansen 2023 End: November 23, 2023 Elio Blackman DO Referring Provider Active Sta rt: November 23, 2023 End: November 23, 2023 Goals (unrecognized section and content) Goals may be documented in a n alternate section No data available for this sectionGoals may be documented in an alternate sectionGoals may be documented in an alternate section No data available for this [...] THE PRIMARY CLINICAL RECORDS. [facility] [employer] [facility]. provides no warranty or guarantee of the accuracy or completeness of information in this document.
--- OUTSIDE RECORDS SUMMARY | 2024-10-26 08:41 | XMS_ITS | Encounter Summary ---
Author Organization [facility] Address [address] [place] [address] Care Team Providers Care Signwriter Name Role Phone Isaiah Terrell MD Primary Care Provider [phone] Encounter Details Date Type Department Care Team (Late Contact Info) Description 11/11/2022 External Result Encounter [facility] External Department Unsolicited Elio Zamudio, [address] [place] [address] Social History Tobacco Use Types Packs/Day Years Used Date Smoking Tobacco: Former Cigarettes Smokeless Tobacco: Never Comments:>10 years Alcohol Use Standard Drinks/Week Comments Never 0 (1 standard drink = 0.6 oz pure alcohol) caffeine intake: 3-4 cups per day of coffee AUDIT-C Answer Date Recorded Q1: How often do you have a drink containing alcohol? Never 10/26/2022 Q2: How many drinks containi ng alcohol do you have on a typical day when you are drinking? Patient does not drink Q3: How often do you have si x or more drinks on one occasion? Never 10/26/2022 PHQ-2 Answer Date Recorded Patient Health Questionnaire-2 Score 0 10/26/2022 Comments No Sex and Gender Information Value Date Recorded Sex Assigned at Not on file Legal Sex Female 7:12 PM EDT Gender Identity Not on file Sexual Orientation Not on file documented as of this encounter Plan of Treatment Upcoming Encounters Date Type Department Care Team (Late Contact Info) Description 11/14/2024 3:30 PM EDT Office Visit [facility] [address] [facility] [address] [place] [id number] Elio Zamudio DO [address] [facility] [address] [place] [address] documented as of this encounter Procedures Procedure Name Priority Date/Time Associated Diagnosis Comments BI MAMMOGRAM SCREENING BILATERAL 11/11/2022 3:57 PM EDT documented in this encounter Results * Bilateral screening mammogram (11/11/2022 3:57 PM EDT) Anatomical Region Laterality Modality Breast Bilateral Mammography 11/11/2022 3:57 PM EDT Impressions 11/14/2022 9:56 AM EDT No mammographic evidence of malignancy. Routine follow-up [...] Bro Gill M.D.11/11/2022 4:00 PM Dictation Location: [facility] Transcribed By: [facility] 11/11/22 1600 Dictated By: Bro Gill DO 11/11/22 1557 Signed By: <Electronically signed by Bro Gill DO in OV> 11/11/22 1600 Narrative 11/14/2022 9:56 AM EDT [facility] Main [address] [address] Mammography Report Signed Patient: Francia Abarca MR#: [id number] : 1965 Acct:[id number] Age/Sex: 56 / F ADM Date: 11/11/22 Loc: [place] Room: Type: [facility] Attending Dr: Elio Zamudio DO Copies [...] CHANGES: None MM/MM screening mammo BI w/CAD Procedure Note Radiology, Radiologist, - 11/14/2022 [facility] Main [place] [address] [place] [address] Mammography Report Signed Patient: Francia Abarca LMR#: [id number] : 1965Acct:[id number] Age/Sex: 56 / FADM Date: 11/11/22 Loc: [place] Room:Type: [facility] Attending Dr: Elio Zamudio DO Copies [...] mammographic evidence of malignancy. Routine follow-up recommended inone year. RESULT CODE: 2 Benign Findings(s) DENSITY CODE: 3 (approximately 51-75% glandular) FOLLOW UP: 1YR THE FALSE-NEGATIVE RATE OF MAMMOGRAPHY IS APPROXIMATELY 10%. IMAGING OF A PALPABLE ABNORMALITY MUST BE BASED ON CLINICAL GROUNDS. PATIENT WAS ENTERED INTO A REMINDER SYSTEM WITH A TARGET DUE DATE FOR THENEXT MAMMOGRAM. Impression dictated by: Bro Gill M.D.11/11/2022 4:00 PM Dictation Location: [facility] Transcribed By: CHRISTO 11/11/22 1600 Dictated By: Bro Gill DO 11/11/22 1557 Signed By: <Electronically signed by Bro Gill DO in OV> 11/11/22 1600 us Elio Zamudio DO IMG BI PROCEDURES Final Resul t documented in this encounter Visit Diagnoses Not on filedocumented in this encounter Care Teams Signwriter Relationship Specialty Start Date End Date Isaiah Terrell MD PCP - General Family Medicine 10/26/22 documented as of this encounter
--- OUTSIDE RECORDS SUMMARY | 2024-10-26 08:41 | XMS_ITS | Patient Health Record ---
Author Organization [facility] [place] Address [address] [place] [address] Care Team Providers Care Glass Science Engineer Name Role Phone Uche Wright Primary Care Provider UCHE WRIGHTLAS Unavailable [phone] Allergies Allergen (clinical drug ingredient) Drug/Non Drug Allergy documented on EMR Reaction Allergy Type Onset Date Status aspirin Aspirin anaphylaxis Drug Allergy Activ e Results Component Value Reference Range Notes FREE T3 Reviewed date:11/02/2023 09:33:58 AM Interpretation: Performing Lab: Notes/Report: [facility] , Free T3 2.12 2.18-3.98 pg/mL Performing Lab: see note - [facility] LB T4 Reviewed date:11/02/2023 09:33:58 AM Interpretation: Performing Lab: Notes/Report: [facility] , T4 Thyroxine 7.20 4.80-13.90 ug/dL Performing Lab: see note ML - [facility] LB TSH Reviewed date:11/02/2023 09:33:58 AM Interpretation: Performing Lab: Notes/Report: [facility] , Thyroid Stimulating Hormone 4.493 0.358-3.740 u IU/mL Performing Lab: see note - [facility] Acute Hepatitis Reviewed date:11/03/2023 07:38:19 AM Interpretation: Performing Lab: Notes/Report: [facility] , Hep A Ab, IgM Negative Negative HBsAg Screen Negative Negative Hep B Core Ab, IgM Negative Negative HCV Ab Non Reactive Non Reactive Interpretation: Comment . Shop Foreman: Huan Hernandez PhD, Phone: [phone] suspected (which may be delayed in an immunocompromised Not infected with HCV unless early or acute infection is individual), or other evidence exists to indicate HCV infection. [address], [place] [id number] Performed at: - [facility] [place] Performing Lab: see note - [facility] Reason For Referral No Information Medications Medication SIG (Take, Route, Frequency, Duration) Notes Start Date End Date Status Pantoprazole Sodium 40 MG TAKE 1 TABLET BY MOUTH EVERY EVENING for 90 Active Simvastatin 20 MG TAKE 1 TABLET BY SCOTT TH EVERY DAY IN THE EVENING 30 DAYS for 90 Active One Touch Ultra Test Strips - BID 09/12/2023 Active One Touch/One Touch II Starter - as directed In Vitro 09/12/2023 Active Ferrous Sulfate 325 (65 Fe) MG 1 tablet Orally twice daily 10/13/2023 Active Vitamin D3 50 MCG (2000 UT) TAKE 1 CAPSU LE BY MOUTH EVERY DAY for 90 days Active Glimepiride 1 MG TAKE 1 TABLET BY SCOTT TH EVERY DAY WITH BREAKFAST OR THE FIRST MAIN MEAL OF THE DAY FOR 90 DAYS Orally Once a day for 90 days Active Venlafaxine HCl ER 75 MG TAKE 1 CAPSULE BY MOUTH EVERY DAY for 90 Active Vitamin C Active Ventolin HFA 108 (90 Base) MCG/ACT 2 puff as needed Inhalation every 4 hrs for 30 days PRN 09/13/2023 Active OLANZapine 2.5 MG TAKE 1 TABLET BY SCOTT TH TWICE A DAY FOR 30 DAYS for 90 Active Liothyronine Sodium 5 MCG 3 tablet on an empty stomach Orally Once a day for 90 days Active metFORMIN HCl 500 MG 1 tablet with a kamron l Orally twice a day for 90 days Active Social History Tobacco Use: Social History Observation Description Date Details (start date - stop date) Former Smoker 05/15/1983 - 05/15/1999 Tobacco Use/Smoking Question Answer Notes Patient is a former smoker When did you start smoking? 05/15/1983 When did you stop smoking? 05/15/1999 How long has it been since you last smoked? > 10 years Alcohol Screen (Audit-C) Question Answer Notes Did you have a drink containing alcohol in the p ast year? No Points 0 Interpretation Negative AUDIT-C (Standard) Question Answer Notes Did you have a drink containing alcohol in the p ast year? No Points 0 Interpretation Negative Problems Problem Type SNOMED Code ICD Code Onset Dates Problem Status W/U Status Risk Notes Problem 18631261 Hypothyroidism, unspecified (E03.9) Active confirmed Problem Syncope and collapse (131698911) Syncope and collapse (R55) Active confirmed Problem 47922330 Diaphragmatic hernia without obstruction or gangrene (K44.9) Active confirmed Problem 152268568 Fatty (change of ) liver, not elsewhere classified (K76.0) Active confirmed Problem 651205037 Other specified abnormal findings of blood chemistry (R79.89) Active confirmed Problem Fatigue (66925433) Fatigue (R53.83) Active conf irmed Problem Asthma (337738115) Asthma (J45.909) Active conf irmed Problem Gastroesophageal reflux disease (954747169) GERD (gastroesophageal reflux disease) (K21.9) Active confirmed Problem Anxiety (82077412) Anxiety (F41.9) Active confi rmed Problem Vertigo (557664527) Vertigo (R42) Active confir med Problem Bipolar 1 disorder (087256051) Bipolar 1 disorder (F31.9) Active confirmed Problem Insomnia (571126099) Insomnia (G47.00) Active c onfirmed Problem Migraine (43686846) Migraine (G43.909) Active c onfirmed Problem Allergic rhinitis (92964910) Allergic rhinitis (J30.9) Active confirmed Problem Well adult (926519143) Well adult (Z00.00) Activ e confirmed Problem Cholelithiasis (473967137) Cholelithiases (K80.20) Active confirmed Problem Conjunctivitis (5852330) Conjunctivitis (H10.9) Active confirmed Problem Chronic otitis exter na (35113843) Chronic otitis externa of left ear (H60.62) Active confirmed Problem hypercholesterolemia (disorder) (25613078) Hypercholesteremia (E78.00) Active confirmed Problem Type II diabetes mellitus without complication (277880303) Diabetes (E11.9) Active confirmed Vital Signs Blood pressure diastolic 80 mm Hg 10/24/2024 Height 64 in 10/24/2024 Blood pressure systolic 138 mm Hg 10/24/2024 Weight 155.2 lbs 10/24/2024 BMI 26.64 kg/m2 10/24/2024 Encounters Encounter Location Date Provider Diagnosis [facility] [address] [place] [address] 11/02/2023 AMADO WRIGHT [facility] [address] [facility] [place] [address] 03/21/2024 Uche Wright [facility] [address] [facility] [place] [address] 04/23/2024 Uche Wright Encounter for genera l adult medical examination without abnormal findings Z00.00 [facility] [address] [facility] [place] [address] 06/13/2024 Uche Wright [facility] [address] [place] [facility] [place] [address] 10/16/2024 Uche Wright [facility] [address] [place] [facility] [place] [address] 10/24/2024 Uche Wright Well adult Z00.00 Assessments Encounter Date Diagnosis (ICD Code) Assessment Notes Treatment Notes Treatment Clinical Notes Section Notes 10/24/2024 Well adult (ICD-10 - Z00.00) 04/23/2024 Encounter for general adult medical examination without abnormal findings (ICD-10 - Z00.00) Plan Of Treatment Pending Test Test Name Order Date CMP (COMPLETE METABOLIC PANEL) 3 CMP (COMPLETE METABOLIC PANEL) 4 HEMOGLOBIN A1C (GLYCO) 09/12/2023 HEMOGLOBIN A1C (GLYCO) 10/24/2024 HEMOGLOBIN A1C (GLYCO) 02/13/2023 IRON, TOTAL 10/24/2024 IRON, TOTAL 09/12/2023 LIPID PANEL (CHOL/TRIG/HDL/LDL) 09/12/19 24 LIPID PANEL (CHOL/TRIG/HDL/LDL) 10/25/19 25 LIPID PANEL (CHOL/TRIG/HDL/LDL) 02/14/20 23 CBC WITH DIFF 02/13/2023 CBC WITH DIFF 09/12/2023 VITAMIN D, 25 LEVEL (TOTAL) 02/13/2023 VITAMIN D, 25 LEVEL (TOTAL) 09/12/2023 ACUTE HEPATITIS PANEL 09/17/2023 US Liver 09/17/2023 US Pancreas 09/17/2023 US Gallbladder 09/17/2023 THYROID PANEL (T4/TSH/FREE T3) 4 THYROID PANEL (T4/TSH/FREE T3) 4 THYROID PANEL (T4/TSH/FREE T3) 3 THYROID PANEL (T4/TSH/FREE T3) 5 CMP (COMP MET SOLANO) w/eGFR CKD-EPI 2024 CBC WITH DIFF 10/24/2024 Insurance Providers Payer Name Payer Address Payer Phone Subscriber Number Group Number Insured Name Patient Relationship to Insured Coverage Start Date Coverage End Date [employer] [place] [employer] [address] [place] [address] [phone] [id number] Francia Abarca Self - patient is the insured 3 3 [employer] [place] [employer] [address] [place] [address] [id number] Francia Abarca Self - patient is the insured 4 Medications Administered Medication Instructions Date of Administration Dosage Notes Dexamethasone, 4mg/mL 02/21/2023 8 mg 8 m g Medical (General) History Medical History History ICD Code Insomnia G47.00 Bipolar 1 disorder F31.9 Fatigue R53.83 Anxiety F41.9 Cholelithiases K80.20 Syncope and collapse R55 Chronic otitis externa of left ear H60.6 2 Diabetes E11.9 Allergic rhinitis J30.9 Asthma J45.909 Hypercholesteremia E78.00 Migraine G43.909 Surgical History Surgery Date(Month/Year) EGD 11/15/23 Colonoscopy 01/27/2021 APPENDECTOMY DELIVERY x2 Hospitalization History Reason Date(Month/Year) CHEST PAIN 2008
--- OUTSIDE RECORDS SUMMARY | 2024-10-26 08:41 | XMS_ITS | Encounter Summary ---
Author Organization [facility] Address [address] [place] [address] Care Team Providers Care Limehouse Worker Name Role Phone Isaiah Terrell MD Primary Care Provider [phone] Encounter Details Date Type Department Care Team (Late Contact Info) Description 11/24/2023 Orders Only [facility] [address] [facility] [address] [place] [address] Elio Zamudio, DO [address] [facility] [address] [place], [place] [phone] Social History Tobacco Use Types Packs/Day Years [...] Office Visit [facility] [address] [facility] [address] [place] [address] Elio Zamudio, [address] [place] [address] documented as of this encounter Procedures Procedure Name Priority Date/Time Associated Diagnosis Comments MAMMOGRAM-DIAGNOSTIC* Routine 11/23/2023 10:01 AM EDT documented in this encounter Results * MAMMOGRAM-DIAGNOSTIC* (11/23/2023 10:01 AM EDT) Anatomical Region Laterality Modality Radiographic Gaviota ging us Elio Zamudio DO IMG XR PROCEDURES Final Resul t documented in this encounter Visit Diagnoses Not on filedocumented in this encounter Care Teams Limehouse Worker Relationship Specialty Start Date End Date Isaiah Terrell MD PCP - General Family Medicine 10/26/22 documented as of this encounter
[2024-10-26 09:14] LABS: Basophils Absolute Auto 0.1 10^3/uL (0.0-0.1); Eosinophils Absolute Auto 0.2 10^3/uL (0.0-0.7); Eosinophils Percent Auto 3.8 % (0.9-7.0); Immature Granulocytes Abs Auto 0.02 10^3/uL (0.00-0.03); Immature Granulocytes Pct Auto 0.4 % (0.0-0.5); Lymphocytes Absolute Auto 1.3 10^3/uL (1.2-3.8); Mean Corpuscular HGB Conc 34.1 g/dL (29.9-35.2); Mean Corpuscular Hemoglobin 29.4 pg (26.7-34.0); Mean Corpuscular Volume 86.1 fL (81.0-99.0); Monocytes Absolute Auto 0.5 10^3/uL (0.3-0.8); Monocytes Percent Auto 9.7 % (1.7-12.0); Neutrophils Absolute Auto 3.2 10^3/uL (1.4-6.5); Neutrophils Percent Auto 60.1 % (43.0-75.0); Red Blood Count 5.11 10^6/uL (4.20-5.40); Red Cell Distribution Width 12.3 % (11.0-15.0); White Blood Count 5.2 10^3/uL (4.0-11.0)
[2024-10-26 09:23] LABS: Mean Platelet Volume 10.9 fL (9.5-13.5); Platelet Count 138 10^3/uL (150-450)
[2024-10-26 09:52] LABS: Alanine Aminotransferase 54 U/L (14-59); Albumin Globulin Ratio 1.1; Albumin Level 3.9 g/dL (3.4-5.0); Alkaline Phosphatase 157 U/L (46-116); Anion Gap 17.8; Aspartate Amino Transferase 29 U/L (15-37); BUN Creatinine Ratio 22.7; Bilirubin Total 0.5 mg/dL (0.2-1.0); Calcium 9.5 mg/dL (8.5-10.1); Carbon Dioxide 25.2 mmol/L (21.0-32.0); Chloride 102 mmol/L (98-107); Cholesterol 160 mg/dL (<=200); Estimated GFR (African America >60 (>=60 mL/min/1.73m^2); Estimated GFR (Non-African Ame >60 (>=60 mL/min/1.73m^2); Free T3 2.21 pg/mL (2.18-3.98); Globulin 3.5 g/dL; Glucose 357 mg/dL (74-106); HDL Cholesterol 32 mg/dL (40-60); Sodium 141 mmol/L (136-145); Thyroid Stimulating Hormone 1.207 uIU/mL (0.358-3.740); Total Protein 7.4 g/dL (6.4-8.2); Triglycerides 167 mg/dL (<=150); VLDL CHOLESTEROL 33.4 mg/dL
[2024-10-26 10:15] LABS: Estimated Average Glucose 283 mg/dL; Glycohemoglobin A1C 11.5 % (4.5-6.2)
== END 2024-10-26 08:37 | disposition home or self-care (01) ==
PROVIDERS: PCP Family Medicine; Visit Provider Family Medicine
DX: Z00.00 Encounter for general adult medical examination without abnormal findings (principal)
CPT/HCPCS: 36415; 80053; 80061; 83036; 83540; 84436; 84443; 84481; 85025

== ENCOUNTER 2024-11-17 08:52 | Emergency (ER) | payer OTHER, SELFPAY ==
--- OUTSIDE RECORDS SUMMARY | 2024-10-24 12:00 | XMS_ITS ---
Author Organization The [facility] in [place] Address [address] [place] [address] Care Team Providers Care Hydropulper Name Role Phone Ezra Terrell Primary Care [...] 10/24/2024 Encounters Encounter Location Date Provider Diagnosis [facility] [address] [place] [address] 10/24/2024 Ezra Terrell Well adult Z00.0 0 Assessments Encounter Date [...] * Francia PUTNAM EDOB:1965 (58 yo F)Acc No.[id number]:10/24/2024 Progress Note Patient: Francia HYATT Roc Provider: Sukh Terrell ([facility])MD :1965 A ge:58 Y S ex:Female Date:10/24/2024 [address] [facility] Check In:03:52 PM ESTCheck O ut:04:31 PM EST Subjective: * Chief Complaints: * Y early wellness exam- due for labs as wellSEE PHQ * HPI: D epression Screening: PHQ-9 L [...] around a lot more than usual S ever T houghts that you would be better [...] enies. S wollen joints d enies. * Active Problem List G47.00 Insomnia Modified On:02/07/2023 Status:confirmed F31.9 Bipolar 1 disorder Modified On:02/07/2023 Status:confirmed R53.83 Fatigue Modified On:02/07/2023 Status:confirmed F41.9 Anxiety Modified On:02/07/2023 Status:confirmed K80.20 Cholelithiases Modified On:02/07/2023 Status:confirmed R55 Syncope and collapse Modified On:02/07/2023 Status:confirmed H60.62 Chronic otitis exter na of left ear Modified On:02/07/2023 Status:confirmed E11.9 Diabetes Modified On:02/21/2023 Status:confirmed J30.9 Allergic rhinitis Modified On:02/07/2023 Status:confirmed J45.909 Asthma Modified On:02/07/2023 Status:confirmed E78.00 Hypercholesteremia Modified On:02/07/2023 Status:confirmed G43.909 Migraine Modified On:02/07/2023 Status:confirmed Z00.00 Well adult Modified On:02/13/2023 Status:confirmed R42 Vertigo Modified On:02/21/2023 Status:confirmed H10.9 Conjunctivitis Modified On:05/03/2023 Status:confirmed K21.9 GERD (gastroesophage al reflux disease) Modified On:09/12/2023 Status:confirmed E03.9 Hypothyroidism, unsp ecified Modified On:09/18/2023 Status:confirmed R79.89 Other specified abno rmal findings of blood chemistry Modified On:09/18/2023 Status:confirmed K76.0 Fatty (change of) li miri, not elsewhere classified Modified On:10/04/2023 Status:confirmed K44.9 Diaphragmatic hernia without obstruction or gangrene Modified On:11/22/2023 Status:confirmed * Medical History: * Surgical History: C ESAREAN DELIVERY x2 APPENDECTOMY Colonoscopy 01/27/2021GD 11/15/23 * Hospitalization/Major Diagno stic Procedure: C HEST PAIN 2008 * Family History: F ather: , Cancer- lung, diagnosed with Diabetes mellitus without mention of complication, type II or unspecified type, not stated as uncontrolled. M other: alive, Breast Cancer, diagnosed with Diabetes mellitus without mention of complication, type II or unspecified type, not stated as uncontrolled. S ister(s): alive, Breast cancer. D frandy(s): alive. 2 brother(s) , 1 sister(s) . [...] last smoked??> 10 years * Medications: T akingFerrous Sulfate 325 (65 Fe) MG Tablet 1 tablet Orally twice daily Glimepiride 1 MG Tablet TAKE 1 TABLET BY MOUTH EVERY DAY WITH BREAKFAST OR THE FIRST MAIN MEAL OF THE DAY FOR 90 DAYS Orally Once a day Liothyronine Sodium 5 MCG Tablet 3 tablet on an empty stomach Orally Once a day metFORMIN HCl 500 MG Tablet 1 tablet with a meal Orally twice a day OLANZapine 2.5 MG Tablet TAKE 1 TABLET BY MOUTH TWICE A DAY FOR 30 DAYS One Touch Ultra Test Strips - Miscellaneous BID One Touch/One Touch II Starter - Kit as directed In Vitro Pantoprazole Sodium 40 MG Tablet Delayed Release TAKE 1 TABLET BY MOUTH EVERY EVENING Simvastatin 20 MG Tablet TAKE 1 TABLET BY MOUTH EVERY DAY IN THE EVENING 30 DAYS Venlafaxine HCl ER 75 MG Capsule Extended Release 24 Hour TAKE 1 CAPSULE BY MOUTH EVERY DAY Ventolin HFA(Albuterol Sulfate HFA) 108 (90 Base) MCG/ACT Aerosol Solution 2 puff as needed Inhalation every 4 hrs , Notes to Pharmacist: PRNVitamin C Vitamin D3 50 MCG (1999 UT) Capsule TAKE 1 CAPSULE BY MOUTH EVERY DAY Taking Ferrous Sulfate 325 (65 Fe) MG Tablet 1 tablet Orally twice daily Taking Glimepiride 1 MG Tablet TAKE 1 TABLET BY MOUTH EVERY DAY WITH BREAKFAST OR THE FIRST MAIN MEAL OF THE DAY FOR 90 DAYS Orally Once a day Taking Liothyronine Sodium 5 MCG Tablet 3 tablet on an empty stomach Orally Once a day Taking metFORMIN HCl 500 MG Tablet 1 tablet with a meal Orally twice a day Taking OLANZapine 2.5 MG Tablet TAKE 1 TABLET BY MOUTH TWICE A DAY FOR 30 DAYS Taking One Touch Ultra Test Strips - Miscellaneous BID Taking One Touch/One Touch II Starter - Kit as directed In Vitro Taking Pantoprazole Sodium 40 MG Tablet Delayed Release TAKE 1 TABLET BY MOUTH EVERY EVENING Taking Simvastatin 20 MG Tablet TAKE 1 TABLET BY MOUTH EVERY DAY IN THE EVENING 30 DAYS Taking Venlafaxine HCl ER 75 MG Capsule Extended Release 24 Hour TAKE 1 CAPSULE BY MOUTH EVERY DAY Taking Ventolin HFA(Albuterol Sulfate HFA) 108 (90 Base) MCG/ACT Aerosol Solution 2 puff as needed Inhalation every 4 hrs , Notes to Pharmacist: PRNTaking Vitamin C Taking Vitamin D3 50 MCG (1999 UT) Capsule TAKE 1 CAPSULE BY MOUTH EVERY DAY DiscontinuedlevoFLOXacin 500 MG Tablet 1 tablet Orally Once a day Medication List reviewed and reconciled with the patientDiscontinued levoFLOXacin 500 MG Tablet 1 tablet Orally Once a day Medication List reviewed and reconciled with the patient * Allergies: A spirin: anaphylaxis - Allergyno[Allergies Verified] Objective: * Vitals: W t:155.2lbs, Ht: 64 in, BP:138/80mm Hg, BMI:26.64Index, Ht-cm: 162.56 cm, Wt-k.4 kg. * Examination: P hysical Exam: GENERAL: w magi developed, well nourished, in no acute distress. [...] - Z00.00 (Primary) Plan: * Treatment: * Procedure Codes: * Preventive Medicine: Screenings/Counseling: B OR ACTION PLAN Above Normal BMI Follow-up D ietary management education, guidance, and counseling * * Sign off status: Completed Visit Status: C HK (Check Out) true * Provider: Sukh Terrell (NATHANIEL)MD Date: 0 10/24/2024 Generated for Tina esposito/Kishor/Patriciasmitting on: 0 11/17/2024 09:11 AM EDT History and Physical Notes * [...]
--- OUTSIDE RECORDS SUMMARY | 2024-10-27 08:05 | XMS_ITS ---
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 Name Role Phone Nidhi Ezra Primary Care Provider REASON FOR VISIT labs Medications Medication SIG (Take, Route, Frequency, Duration) Notes Start Date End Date Status Glimepiride 4 MG TAKE 1 TABLET BY SCOTT TH EVERY DAY WITH BREAKFAST OR THE FIRST MAIN MEAL OF THE DAY FOR 90 DAYS Orally Once a day for 30 days Active Levothyroxine Sodium 50 MCG 1 tablet in the morning on an empty stomach Orally Once a day for 30 days 10/28/2024 Active Blood Glucose Meter -- Use glucometer to monitor glucose levels DX E11.9 for 365 days 10/28/2024 Active Lancets 33G - Use 1 lancet to poke finger for glucose reading once daily DX E11.9 for 90 days 10/28/2024 Active Test Strips - use 1 strip via mete r daily to monitor glucose level. DX E11.9 for 90 days 10/28/2024 Active Encounters Encounter Location Date Provider Diagnosis [facility] [address] [place] [address] 10/27/2024 Ezra Terrell Encounter for genera l adult medical examination without abnormal findings Z00.00 ; Diabetes E11.9 and Hypothyroidism, unspecified E03.9 Assessments Encounter Date Diagnosis (ICD Code) Assessment Notes Treatment Notes Treatment Clinical Notes Section Notes 10/27/2024 Encounter for general adult medical examination without abnormal findings (ICD-10 - Z00.00) 10/27/2024 Diabetes (ICD-10 - E11.9) 10/27/2024 Hypothyroidism, unspecified (ICD-10 - E03.9) Plan Of Treatment Medication Medication Name Sig Start Date Stop Date Notes Glimepiride 4 MG TAKE 1 TABLET BY SCOTT TH EVERY DAY WITH BREAKFAST OR THE FIRST MAIN MEAL OF THE DAY FOR 90 DAYS Orally Once a day for 30 days Levothyroxine Sodium 50 MCG 1 tablet in the morning on an empty stomach Orally Once a day for 30 days 10/28/2024 One Touch Ultra Test Strips - BID 09/12/2023 One Touch/One Touch II Start er - as directed In Vitro 09/12/2023 Blood Glucose Meter -- Use glucometer to monitor glucose levels DX E11.9 for 365 days 10/28/2024 Lancets 33G - Use 1 lancet to poke finger for glucose reading once daily DX E11.9 for 90 days 10/28/2024 Test Strips - use 1 strip via mete r daily to monitor glucose level. DX E11.9 for 90 days 10/28/2024 Pending Test Test Name Order Date THYROID PANEL (T4/TSH/FREE T3) Progress Notes * Francia ABARCA EDOB:1965 (58 yo F)Acc No.[id number]:10/27/2024 Patient: Mak CONNER Francia Brian :1965 A ge:58 Y S ex:Female Address:[address] [place] [address], [address] * Refills Start Levothyroxine Sodium Tablet, 50 MCG, Orally, 30, 1 tablet in the morning on an empty stomach, Once a day, 30 days, Refills=11 Stop One Touch/One Touch II Starter Kit, -, as directed In Vitro Stop One Touch Ultra Test Strips Miscellaneous, -, BID Start Blood Glucose Meter --, --, 1, Use glucometer to monitor glucose levels DX E11.9, 365 days, Refills=0 Start Test Strips -, -, 100, use 1 strip via meter daily to monitor glucose level. DX E11.9, 90 days, Refills=3 Start Lancets 33G Miscellaneous, -, 100, Use 1 lancet to poke finger for glucose reading once daily DX E11.9, 90 days, Refills=3 Refill Glimepiride Tablet, 4 MG, Orally, 30, TAKE 1 TABLET BY MOUTH EVERY DAY WITH BREAKFAST OR THE FIRST MAIN MEAL OF THE DAY FOR 90 DAYS, Once a day, 30 days, Refills=11 Subjective: * Chief Complaints: * L abs * Medical History: * Surgical History: * Hospitalization/Major Diagno stic Procedure: * Medications: Objective: * Vitals: * Physical Examination: Assessment: * Assessment: 1. E ncounter for general adult medical examination without abnormal findings - Z00.00 ? 2 . D iabetes - E11.9 3 . H ypothyroidism, unspecified - E03.9 ? Plan: * Treatment: 2. D iabetes Stop One Touch/One Touch II Starter Kit, -, as directed In Vitro; S top One Touch Ultra Test Strips Miscellaneous, -, BID. 3. H ypothyroidism, unspecified L AB: THYROID PANEL (T4/TSH/FREE T3) 4. O thers Start Levothyroxine Sodium Tablet, 50 MCG, 1 tablet in the morning on an empty stomach, Orally, Once a day, 30 days, 30, Refills 11; S tart Blood Glucose Meter --, --, Use glucometer to monitor glucose levels DX E11.9, 365 days, 1, Refills 0; S tart Test Strips -, -, use 1 strip via meter daily to monitor glucose level. DX E11.9, 90 days, 100, Refills 3; S tart Lancets 33G Miscellaneous, -, Use 1 lancet to poke finger for glucose reading once daily DX E11.9, 90 days, 100, Refills 3.? * Procedure Codes: * true * Date: Generated for Tina esposito/Kishor/Diliaitting on: 0 11/17/2024 09:11 AM EDT
--- OUTSIDE RECORDS SUMMARY | 2024-11-11 04:37 | XMS_ITS ---
Author Organization [facility] in [place] Address [address] [place] [address] Care Team Providers Care Business Intern Name Role Phone NidhiEzra Primary Care Provider REASON FOR VISIT blood sugars Medications Medication SIG (Take, Route, Frequency, Duration) Notes Start Date End Date Status Actos 15 MG 1 tablet Orally Once a day for 30 day(s) 11/11/2024 Active Encounters Encounter Location Date Provider Diagnosis [facility] [address] [facility] [place] [address] 11/11/2024 Ezra Moisekaya Plan Of Treatment Medication Medication Name Sig Start Date Stop Date Notes Actos 15 MG 1 tablet Orally Once a day for 30 day(s) 11/11 Progress Notes * Francia PUTNAM EDOB:1965 (58 yo F)Acc No.[id number]:11/11/2024 Patient: Mak Francia PRIETO :1965 A ge:58 Y S ex:Female Address:[address] [place], [address] * Refills Start Actos Tablet, 15 MG, Orally, 30, 1 tablet, Once a day, 30 day(s) * true * Date: Generated for Busteri ng/Faxing/eTransmitting on: 0 11/17/2024 09:11 AM EDT
--- OUTSIDE RECORDS SUMMARY | 2024-11-14 15:30 | XMS_ITS | Encounter Summary ---
Author Organization [facility] Address [address] [place] [address] Care Team Providers Care Line Decorator Name Role Phone Isaiah Terrell MD Primary Care Provider [phone] Reason for Visit * Reason Comments Gynecologic Exam Pt presents for year ly. 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 Encounter Details Date Type Department Care Team (Latest Contact Info) Description 11/14/2024 3:30 PM EDT Office Visit [facility] [address] [facility] [address] [place] [address] Elio Zamudio, DO [address] [facility] [address] [place] [address] Encounter for gynecological examination with abnormal finding (Primary Dx); Encounter for screening mammogram for malignant neoplasm of breast; Screening for malignant neoplasm of cervix; Screening for HPV (human papillomavirus); Vaginal atrophy; Family history of breast cancer; Other constipation Social History Tobacco Use Types Packs/Day Years [...] on file documented as of this encounter Last Filed Vital Signs Vital Sign Reading Time Taken Comments Blood Pressure 122/70 11/14/2024 3:52 PM EDT Pulse - - Temperature - - Respiratory Rate - - Oxygen Saturation - - Inhaled Oxygen Concentration - - Weight 69.4 kg (153 lb) 11/14/2024 3:52 PM EDT Height - - Body Mass Index 26.68 11/09/2023 4:03 PM EDT documented in this encounter Progress Notes * Elio Zamudio, DO - 11/14/2024 3:30 PM EDT Images from the original note were not included. Elio Zamudio, Obstetrics and Gynecology Francia Abarca 1965 11/14/24 [id number] Yearly Wellness Exam Chief Complaint Patient presents with Gynecologic Exam Pt presents for yearly. 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 Visit Vitals BP 122/70 Wt 153 lb BMI 26.68 kg/m?? OB Status Ablation Smoking Status Former BSA 1.76 m?? History of Present Illness Current Outpatient Medications Medication Sig Dispense Refill Actos 15 MG tablet Take 15 mg by mouth Daily glimepiride (Amaryl) 4 MG tablet Take 4 mg by mouth in the morning. Take before meals. levothyroxine (Synthroid, Levoxyl) 50 MCG tablet Take 50 mcg by mouth in the morning. Take before meals. albuterol HFA 90 mcg/act inhaler Inhale 2 puffs every 4 (four) hours if needed cholecalciferol (Vitamin D-3) 50 MCG (2000 UT) capsule Take 2,000 Units by mouth in the morning. liothyronine (Cytomel) 5 MCG tablet Take 5 mcg by mouth Daily metFORMIN (Glucophage) 500 MG tablet Take 500 mg by mouth in the morning and 500 mg before bedtime. OLANZapine (ZyPREXA) 2.5 MG tablet Take 1 tablet by mouth in the morning and 1 tablet before bedtime. OneTouch Ultra test strip 1 each by Other route if needed. pantoprazole (ProtoNix) 40 MG EC tablet Take 40 mg by mouth at bedtime simvastatin (Zocor) 20 MG tablet Take 20 mg by mouth at bedtime. venlafaxine XR (Effexor XR) 150 MG 24 hr capsule Take 150 mg by mouth in the morning. venlafaxine XR (Effexor XR) 75 MG 24 hr capsule Take 75 mg by mouth Daily Vraylar 1.5 MG capsule Take 1 capsule by mouth in the morning. No current facility-administered medications for this visit. Allergies Allergen Reactions Aspirin Other Reaction(s): Difficulty Breathing Past Medical History: Diagnosis Date Menorrhagia Past Surgical History: Procedure Laterality Date APPENDECTOMY age 17 SECTION, LOW TRANSVERSE x2 COLONOSCOPY 01/27/2021 ENDOMETRIAL ABLATION 2009 novasure ablation TUBAL LIGATION OB History Para Term AB Living 2 2 2 2 SAB IAB Ectopic Multiple Live Births 2 # Outcome Date GA Lbr Ten/2nd Weight Sex Type Anes PTL Lv 2 Term CS-LTranv 1 Term CS-LTranv Obstetric Comments Pap 10/20/21- Neg, HPV Neg Mammogram 11/23/23- Neg [place] : mother and sister dx breast cancer, sister BRCA Neg Colonoscopy 01/27/21- normal ([facility]) Tubal ligation ROS General: Denies fevers/chills Eyes: Denies vision changes ENT: Denies neck stiffness, neck mass Endocrine: Denies polydipsia and polyuria Respiratory: Denies shortness of breath Cardiovascular: Denies chest pain and palpitations Gastrointestinal: Denies changes in bowel habits, blood in stool, constipation and diarrhea. Hematology: Denies easy bruising. Women Only: Denies breast masses, skin changes, nipple discharge, abnormal bleeding, pelvic pain and dyspareunia Genitourinary: Denies dysuria, pelvic pain and nocturia Skin: Denies rashes/lesions Neurologic: Denies headaches, dizziness, syncope Psychiatric: Denies hallucinations, suicidal ideas EXAM GENERAL EXAMINATION: Alert, oriented, well developed, well nourished. HEAD: Normocephalic, atraumatic. EYES: ROHAN, sclera anicteric. EARS: No obvious hearing deficit. NECK/THYROID: Neck supple no cervical lymphadenopathy no thyromegaly. LYMPH NODES: No axillary, supraclavicular or inguinal adenopathy. SKIN: Warm and dry. No rashes HEART: Regular rate and rhythm. No murmur LUNGS: Clear to auscultation bilaterally. CHEST: Axillary nodes grossly normal. BREASTS: No dominant masses palpable bilaterally, no skin changes, nipple discharge, supra-clavicular or axillary adenopathy ABDOMEN: Soft, nontender, nondistended, no hernia or masses palpable. BACK: No obvious scoliosis/kyphosis. FEMALE GENITOURINARY: Wound/Ostomy Clinical Nurse Specialist in room-EFG without sores/lesions, atrophic vaginal mucosa-no discharge, stenotic cervix -without lesions, uterus AV, NSSC, no adnexal masses, cul-de-sac negative. EXTREMITIES No edema. NEUROLOGIC: Alert and oriented. PSYCH: Cooperative with exam. ICD-10-CM 1. Encounter for gynecological examination with abnormal finding Z01.411 2. Encounter for screening mammogram for malignant neoplasm of breast Z12.31 Bilateral screening mammogram with tomosynthesis 3. Screening for malignant neoplasm of cervix Z12.4 IGP, APT HPV,RFX 16/18,45 4. Screening for HPV (human papillomavirus) Z11.51 IGP, APT HPV,RFX 16/18,45 5. Vaginal atrophy N95.2 6. Family history of breast cancer Z80.3 Bilateral screening mammogram with tomosynthesis 7. Other constipation K59.09 Advised pt to perform monthly self breast exams. Encouraged calcium and Vitamin D intake. Pap obtained. Mammogram due, order sent. She has c/o constipation, not currently taking any medication. Discussed OTC medication options- Miralax etc.. Colonoscopy up to date. Denies any bladder or breast issues. Denies vaginal dryness. Plan to return in 1 year for annual exam. Entered by Aisha Andujar LPN acting as scribe for Dr. Elio Zamudio. Signature: Aisha Andujar LPN The documentation recorded by the scribe accurately reflects the service(s) I personally performed and the decisions I made. Signature: Elio Zamudio DO Assessment & Plan documented in this encounter Plan of Treatment Scheduled Orders Name Type Priority Associated Diagnoses Orde r Schedule IGP, APT HPV,RFX 16/18,45 Lab Routine Screening for malignant neoplasm of cervix Screening for HPV (human papillomavirus) Ordered: 11/14/2024 Bilateral screening mammogram with tomosynthesis Imaging Routine Encounter for screening mammogram for malignant neoplasm of breast Family history of breast cancer Expected: 11/22/2024, Expires: 01/15/2026 documented as of this encounter Visit Diagnoses Diagnosis Encounter for gynecological examination with abnormal finding- Primary Encounter for screening mammogram for malignant neoplasm of breast Screening for malignant neoplasm of cervix Screening for malignant neoplasm of the cervix Screening for HPV (human papillomavirus) Special screening examination for human papillomavirus (HPV) Vaginal atrophy Postmenopausal atrophic vaginitis Family history of breast cancer Family history of malignant neoplasm of breast Other constipation documented in this encounter Care Teams Line Decorator Relationship Specialty Start Date End Date Isaiah Terrell MD PCP - General Family Medicine 10/26/22 documented as of this encounter
[2024-11-17] VITALS (13 sets, daily range): BP systolic 135; BP diastolic 80; PULSE 103–112; TEMP 36.6; O2SAT 88–98; BMI 26.3
--- OUTSIDE RECORDS SUMMARY | 2024-11-17 09:11 | XMS_ITS | Encounter Summary ---
Author Organization [facility] Address [address] [place] [address] Care Team Providers Care Rn Charge Name Role Phone Isaiah Terrell MD Primary Care Provider [phone] Encounter Details Date Type Department Care Team (Latest Contact Info) Description 11/14/2024 Travel Social History Tobacco Use Types Packs/Day Years [...] as of this encounter Plan of Treatment Not on file documented as of this encounter Visit Diagnoses Not on filedocumented in this encounter Care Teams Rn Charge Relationship Specialty Start Date End Date Isaiah Terrell MD PCP - General Family Medicine 10/26/22 documented as of this encounter
--- OUTSIDE RECORDS SUMMARY | 2024-11-17 09:11 | XMS_ITS | Encounter Summary ---
Author Organization [facility] Address [address] [place] [address] Care Team Providers Care Beauty Advisor Name Role Phone Isaiah Terrell MD Primary Care Provider [phone] Encounter Details Date Type Department Care Team (Late st Contact Info) Description 11/11/2022 External Result Encounter [facility] Unsolicited Elio Zamudio, DO [address] [place] [address] Social History Tobacco Use Types Packs/Day Years [...] on file documented as of this encounter Procedures Procedure [...] 4:00 PM Dictation Location: [facility] Transcribed By: [facility] 11/11/22 1600 Dictated By: Bro Gill DO 11/11/22 1557 Signed By: <Electronically signed by Bro Gill DO in [place]> 11/11/22 1600 Narrative 11/14/2022 9:56 AM EDT [facility] Main [place] [address] [place] [address] Mammography Report Signed Patient: Francia Abarca MR#: [id number] : 1965 Acct:[id number] Age/Sex: 56 / F ADM Date: 11/11/22 Loc: [place] Room: Type: [facility] Attending Dr: Elio Zamudio DO [...] w/CAD Procedure Note Radiology, Radiologist, - 11/14/2022 [facility] Main [place] [address] [place] [address] Mammography Report Signed Patient: Francia Abarca LMR#: [id number] : 1965Acct:[id number] Age/Sex: 56 / FADM Date: 11/11/22 Loc: [place] Room:Type: [facility] Attending Dr: Elio Zamudio DO [...] 4:00 PM Dictation Location: [facility] Transcribed By: [facility] 11/11/22 1600 Dictated By: Bro Gill DO 11/11/22 1557 Signed By: <Electronically signed by Bro Gill DO in [place]> 11/11/22 1600 us Elio Zamudio DO IMG BI PROCEDURES Final Resul t documented in this encounter Visit Diagnoses Not on filedocumented in this encounter Care Teams Beauty Advisor Relationship Specialty Start Date End Date Isaiah Terrell MD PCP - General Family Medicine 10/26/22 documented as of this encounter
--- OUTSIDE RECORDS SUMMARY | 2024-11-17 09:11 | XMS_ITS | CCD ---
Author Organization [facility] Care Team Providers Care Showroom Manager Name Role Phone DR AMADO TERRELL Attending Unavailable NIDHI, DR FISCHER Primary Care Unavailable SANDRAY, DR FISCHER Admitting Unavailable NIDHI, DR FISCHER Consulting Unavailable NIDHI, DR FISCHER Primary Care Unavailable NIDHI, DR FISCHER Admitting Unavailable SANDRAY, DR FISCHER Attending Unavailable SANDRAY, DR FISCHER Consulting Unavailable NIDHI, DR FISCHER Primary Care Unavailable SANDRAY, DR FISCHER Admitting Unavailable NIDHI, DR FISCHER Attending Unavailable MD Amado Terrell Primary Care Provider DO Elio Blackman Attending Provider [phone] Amado Terrell Primary Care Physician [phone] MD Maxime Encinas Attending Provider [phone] Self, Referral Attending Provider Unavailable DO Elio Blackman Referring Provider Maxime Encinas Attending Unavailable Maxime Encinas Admitting Unavailable Elio Blackman Referring Unavailable Self, Referral Attending Unavailable Self, Referral Admitting Unavailable Maxime ENCINAS Attending Unavailable Maxime ENCINAS Attending Unavailable Amado Terrell Referring Unavailable Maxime ENCINAS Attending Unavailable Amado Terrell MD Primary Care Provider ELIO BLACKMAN Attending Unavailable Allergies Allergy Classification Reported Allergen(s) Allergy Type Date of Onset Reaction(s) Facility (2 sources) Aspirin; Translations: [aspirin] Drug Allergy 5 [facility] Repository (2 sources) Aspirin; Translations: [aspirin] Drug Allergy Anaphylaxis (disorder) [facility] (2 sources) Aluminum aspirin Drug Allergy 3 [facility] Medications Current Medications Medication Drug Class(es) Dates Sig (Normalized) Sig (Original) [id number] 200 actuat albuterol 0.09 mg/actuat metered dose inhaler (2 sources) beta2-Adrenergic Agonist Start: 09-13-2023 take 2 puff(s) by inhalation every four hours albuterol HFA 90 mcg/act inhaler Inhale 2 puffs every 4 (four) hours if needed 09/13/2023 Active cariprazine 1.5 mg oral capsule (2 sources) Atypical Antipsychotic take 1 capsule by mouth in the morning Vraylar 1.5 MG capsule Take 1 capsule by mouth in the morning. Active cholecalciferol 0.05 mg oral capsule (2 sources) Vitamin D Start: 09-03-2022 take 1 capsule by mouth in the morning cholecalciferol (Vitamin D-3) 50 MCG (1999 UT) capsule Take 2,000 Units by mouth in the morning. 09/03/2022 Active glimepiride 4 mg oral tablet (6 sources) Sulfonylurea Start: 10-28-2024 take 1 tablet by mouth before mealtime glimepiride (Amaryl) 4 MG tablet Take 4 mg by mouth in the morning. Take before meals. 10/28/2024 Active Start: 09-20-2023 End: 11-14-2024 glimepiride (Amaryl) 1 MG ta blet Take 1 mg by mouth 09/20/2023 11/14/2024 Discontinued (Dose adjustment) levothyroxine sodium 0.05 mg oral tablet (2 sources) l-Thyroxine Start: 10-28-2024 take 1 tablet by mouth before mealtime levothyroxine (Synthroid, Levoxyl) 50 MCG tablet Take 50 mcg by mouth in the morning. Take before meals. 10/28/2024 Active liothyronine sodium 0.005 mg oral tablet (4 sources) l-Triiodothyronin e Start: 10-03-2023 take 1 tablet by mouth once daily liothyronine (Cytomel) 5 MCG tablet Take 5 mcg by mouth Daily 10/03/2023 Active Start: 10-03-2023 take 2 tablets by mo ut once daily liothyronine 5 mcg Tab 10 mcg = 2 tab(s), Oral, Daily, Refills(s) 0 Start Date: 10/03/23 Status: Ordered metFORMIN hydrochloride 500 mg oral tablet (4 sources) Biguanide Start: 01-08-2021 take 1 tablet by mouth twice daily metformin 500 mg Tab 500 mg = 1 tab(s), Oral, BID, Refills(s) 0 Start Date: 01/08/21 Status: Ordered OLANZapine 2.5 mg oral tablet (4 sources) Atypical Antipsychotic Start: 09-20-2023 take 1 tablet by mouth twice daily ZyPREXA 2.5 mg Tab 2.5 mg = 1 tab(s), Oral, BID, Refills(s) 0 Start Date: 09/20/23 Status: Ordered pantoprazole 40 mg delayed release oral tablet (4 sources) Proton Pump Inhibitor Start: 09-20-2023 Protonix 40 mg Tab-DR 40 mg = 1 tab(s), Oral, BID, increased to BID 11/15/23, Refills(s) 0 Start Date: 09/20/23 Status: Ordered Start: 09-20-2023 take 1 tablet by mindy once daily Protonix 40 mg Tab-DR 40 mg = 1 tab(s), Oral, Daily, Refills(s) 0 Start Date: 09/20/23 Status: Ordered pioglitazone 15 mg oral tablet (2 sources) Peroxisome Proliferator Receptor alpha Agonist, Peroxisome Proliferator Receptor gamma Agonist, Thiazolidinedione Start: 11-11-2024 take 1 tablet by mouth once daily Actos 15 MG tablet Take 15 mg by mouth Daily 11/11/2024 Active simvastatin 20 mg oral tablet (4 sources) HMG-CoA Reductase Inhibitor Start: 10-04-2022 take 1 tablet by mouth once daily in the evening simvastatin 20 mg Tab 20 mg = 1 tab(s), Oral, qPM, Refills(s) 0 Start Date: 09/20/23 Status: Ordered 24 hr venlafaxine 75 mg extended release oral capsule (8 sources) Serotonin and Norepinephrine Reuptake Inhibitor Start: 10-03-2023 take 1 capsule by mouth once daily venlafaxine XR (Effexor XR) 75 MG 24 hr capsule Take 75 mg by mouth Daily 10/25/2023 Active Start: 10-04-2022 take 1 capsule by mo [facility] every twenty-four hours in the morning venlafaxine XR (Effexor XR) 150 MG 24 hr capsule Take 150 mg by mouth in the morning. 10/04/2022 Active Start: 01-08-2021 take 1 capsule by mouth once d aily venlafaxine 150 mg Cap-ER 150 mg = [...] Active Problems Problem Classification Problem Date Documented Da te Episodic/Chronic Abdominal hernia (1 source) Diaphragmatic hernia; Translations: [Diaphragmatic hernia without obstruction or gangrene] Onset: 4 Episodic Anxiety disorders (2 sources) Anxiety 09-20-2023 Chronic Asthma (2 sources) Asthma 01-08-2021 Chronic Biliary tract disease (2 sources) Biliary calculus 01-08-2021 Episodic Diabetes mellitus without complication (2 sources) Diabetes mellitus 01-08-2021 Chronic Disorders of lipid metabolism (3 sources) Pure hypercholesterolemia, unspecified; Translations: [Pure hypercholesterolemia] Onset: 2 01-08-2021 Chronic Esophageal disorders (7 sources) Gastroesophageal reflux disease without esophagitis; Translations: [Gastro-esophageal reflux disease without esophagitis] Onset: 4 Chronic Headache; including migraine (2 sources) Migraine 01-08-2021 Chronic Immunizations and screening for infectious disease (3 sources) Encounter for screening for infectious and parasitic diseases, unspecified; Translations: [Patient encounter status] Onset: 2 11-14-2024 Episodic Menopausal disorders (2 sources) Atrophy of vagina; Translations: [Postmenopausal atrophic vaginitis] 11-14-2024 Chronic Mood disorders (2 sources) Bipolar disorder 01-08-2021 Chronic Nutritional deficiencies (1 source) Vitamin D deficiency, unspecified; Translations: [VITAMIN D DEFICIENCY UNSPECIFIED] Onset: 2 Chronic Other circulatory disease (2 sources) Feeling of lump in throat 10-03-2023 Episodic Other gastrointestinal disorders (2 sources) Constipation; Translations: [Other constipation] 11-14-2024 Episodic Other nutritional; endocrine; and metabolic disorders (2 sources) Body mass index 25-29 - overweight 01-12-2021 Episodic Other nutritional; endocrine; and metabolic disorders (2 sources) Overweight 09-20-2023 Episodic Other screening for suspected conditions (not mental disorders or infectious disease) (5 sources) Encounter for screening mammogram for malignant neoplasm of breast; Translations: [Patient encounter status] Onset: 11-14-2024 Episodic Other upper respiratory disease (2 sources) Allergic rhinitis 01-08-2021 Chronic Residual codes; unclassified (2 sources) Insomnia 09-20-2023 Episodic Residual codes; unclassified (2 sources) Family history of breast cancer; Translations: [Family history of malignant neoplasm of breast] 11-14-2024 Episodic Unclassified (1 source) CONTACT W/AND (SUSP) EXPOS COVID-19; Translations: [CONTACT W/AND (SUSP) EXPOS COVID-19] Onset: 2 Unclassified (2 sources) Patient encounter status 01-12-2021 Past or Other Problems Problem Classification Problem Date Documented Da te Episodic/Chronic Acute bronchitis (4 sources) Acute bronchitis, unspecified; Translations: [ACUTE BRONCHITIS UNSPECIFIED] Onset: 08-23-2021 Episodic Malaise and fatigue (1 source) Other [...] Primary Care Physician - Nidhi ROWAN, Amado This Is Your Medications List albuterol (Ventolin [...] you for choosing us for your care. Harjeet Darnell [facility] General Surgery Office/Clini c Noteon 12-01-2023 [...] (COVID-19) mRNA-1273 vaccine 07/27/2020 Recorded Normal Darnell [facility] Comment on above: Result Comment: Elec tronically Signed By: ZIGGY ROWAN, Maxime Loredo\Date and Time Signed: 12/01/23 13:29 EDT MM screening mammo BI w/CADo n 11-23-2023 MM screening mammo BI w/CAD [facility] [place] [address] [place] [address] Mammography Report Signed Patient: Justin Abarca MR#: [id number] : 1965 Acct:[id number] Age/Sex: 58 / F ADM Date: 11/23/23 Loc: OR Room: Type: [facility] Attending Dr: Referral Self Copies to: Elio Ellis Robb, DO SELF,REFERRAL Ordering Provider: SELF,REFERRAL Date of Service: [...] Dion Pinon M.D.11/23/2023 4:38 PM Dictation Location: [facility] Transcribed By: CHRISTO 11/23/23 1638 Dictated By: Dion Pinon II, MD 11/23/23 1632 Signed By: 11/23/23 1638 Normal [facility] Chuckie 11-15-2023 L Specimen: [id number] eceived: 11/15/23 Status: TAMARA Sandor Num: [id number] Spec Type: Surgical Subm Dr: Maxime Encinas MD FACS Tissues: A Gastric Biopsy (GASTRIC POLYP) Procedures: HE/2, Gross/Micro L4 Age/ Patient Sex Location Account Attending Physician Justin Abarca 57/F LABELL [id number] Maxime Encinas MD FACS SPEC NUM: [id number] RECD: 11/15/23 STATUS: TAMARA PATTEN NUM: [id number] NING: 11/15/[address] [facility] [address]: Maxime Encinas MD FACS ENTERED: 11/15/[address] [facility] DR: Analy Chen SPEC TYPE: Surgical DEPT: CRISTIN TORRES ORDERED: HE/2, Gross/Micro L4 ORDERED: HE/2, Gross/Micro L4 Pathological Diagnosis Gastric polyp biopsy: [...] performed supporting the above interpretation -------- Specimen: [id number] Received: 11/15/23 Status: TAMARA Patten Num: [id number] Spec Type: Surgical Subm Dr: Maxiem Encinas MD FACS Tissues: A Gastric Biopsy (GASTRIC POLYP) Procedures: HE/2, Gross/Micro L4 -------- Patient: Justin Abarca L [id number] (Continued) -------- Specimen: [id number] Received: 11/15/23 (Continued) Signed (signature on file) Kunal Blancas MD 11/18/23 1100 -------- Specimen: [id number] Received: 11/15/23 Status: TAMARA Sandor Num: [id number] Spec Type: Surgical Subm Dr: Maxmie Encinas MD FACS Tissues: A Gastric Biopsy (GASTRIC POLYP) Procedures: RADHA/Jose, Gross/Micro L4 -------- Patient: Hitesh Abarcaezio Vilchis [id number] (Continued) -------- Specimen: [id number] Received: 11/15/23 (Continued) CPT Codes 06499 -------- -------- Specimen: [id number] Received: 11/15/23 Status: TAMARA Osbornejonnie Num: [id number] Spec Type: Surgical Subm Dr: Maxime Encinas MD FACS Tissues: A Gastric Biopsy (GASTRIC POLYP) Procedures: RADHA/Jose, Mateusz/Marcos L4 -------- Patient: Justin Abarca [id number] (Continued) -------- Signed (signature on file) Kunal Blancas MD 11/18/23 1100 Normal [facility] Insurance Correspondenceon 0 11-07-2023 Insurance Correspondence [id number]#1.00TIFF Normal [facility] Consent for Procedure/Surger yon 10-05-2023 Consent for Procedure/Surgery [id number]#1.00TIFF Normal [facility] Physician Referralon 024 Physician Referral [id number]#1.00TIFF Normal [facility] Facesheeton 10-04-2023 Facesheet [id number]#1.00TIFF Normal [facility] Ambulatory Visit Summaryon 0 10-03-2023 Ambulatory Visit Summary JUSTIN ABARCA :1965 Visit Date:10/03/2023 Ambulatory Visit Instructions Your [...] for choosing us for your care. Normal [facility] Physician Referralon 024 Physician Referral [id number]#1.00TIFF Normal [facility] Physician Referral [id number]#1.00TIFF Normal [facility] T4 [facility] 02-09-2022 T4 [Mass/Vol] 6.2 ug/dL Normal 4.5-12.0 [facility] Comment on above: Performed By: #### T 4LC #### [facility] [address] [address] [address] Christiane Blancas CBC AUTO DIFFon 02-08-2022 BASO # 0.1 103/ul Normal 0.0-0.1 [facility] Comment on above: Performed By: #### C BC #### [facility] [address] [address] [address] Christiane Blancas Basophils/100 WBC (Bld) 1.6 % Normal 0.2-2.0 [facility] Comment on above: Performed By: #### C BC #### [facility] [address] [place] [address] Dr. Christiane Blancas EO # 0.1 103/ul Normal 0.0-0.7 [facility] Comment on above: Performed By: #### C BC #### [facility] [address] [place] [address] Dr. Christiane Blancas Eosinophils/100 WBC (Bld) 1.6 % Normal 0.9-7.0 [facility] Comment on above: Performed By: #### C BC #### [facility] [address] [place] [address] Dr. Christiane Blancas Erythrocyte distribution width (RBC) [Ratio] 15.7 % Critically high 11.0-15.0 [facility] Comment on above: Performed By: #### C BC #### [facility] [address] [place] [address] Dr. Christiane Blancas Hematocrit (Bld) [Volume fraction] 39.6 % Normal 36.0-48.0 [facility] Comment on above: Performed By: #### C BC #### [facility] [address] [place] [address] Dr. Christiane Blancas Hemoglobin (Bld) [Mass/Vol] 12.1 g/dL Normal 12.0-16.0 [facility] Comment on above: Performed By: #### C BC #### [facility] [address] [place] [address] Dr. Christiane Blancas IG # 0.02 10e3/ul Normal 0.00-0.03 [facility] Comment on above: Performed By: #### C BC #### [facility] [address] [place] [address] Dr. Christiane Blancas IG % 0.3 % Normal 0.0-0.5 [facility] Comment on above: Performed By: #### C BC #### [facility] [address] [place] [address] Dr. Christiane Blancas LYMPH # 1.7 103/ul Normal 1.2-3.8 [facility] Comment on above: Performed By: #### C BC #### [facility] [address] [place] [address] Dr. Christiane Blancas Lymphocytes/100 WBC (Bld) 30.4 % Normal 20.5-60.0 [facility] Comment on above: Performed By: #### C BC #### [facility] [address] [place] [address] Dr. Christiane Blancas MANUAL DIFF REQ NO Normal [facility] Comment on above: Performed By: #### C BC #### [facility] [address] [place] [address] Dr. Christiane Blancas MCH (RBC) [Entitic mass] 25.5 pg Critically low 26.7-34.0 [facility] Comment on above: Performed By: #### C BC #### [facility] [address] [place] [address] Dr. Christiane Blancas MCHC (RBC) [Mass/Vol] 30.6 g/dL Normal 29.9-35.2 [facility] Comment on above: Performed By: #### C BC #### [facility] [address] [place] [address] Dr. Christiane Blancas MCV (RBC) [Entitic vol] 83.4 fL Normal 81.0-99.0 [facility] Comment on above: Performed By: #### C BC #### [facility] [address] [place] [address] Dr. Christiane Blancas MONO # 0.4 103/ul Normal 0.3-0.8 [facility] Comment on above: Performed By: #### C BC #### [facility] [address] [place] [address] Dr. Christiane Blancas Monocytes/100 WBC (Bld) 7.5 % Normal 1.7-12.0 [facility] Comment on above: Performed By: #### C BC #### [facility] [address] [place] [address] Dr. Christiane Blancas NEUT # 3.4 103/ul Normal 1.4-6.5 [facility] Comment on above: Performed By: #### C BC #### [facility] [address] [place] [address] Dr. Christiane Blancas Neutrophils/100 WBC (Bld) 58.6 % Normal 43.0-75.0 [facility] Comment on above: Performed By: #### C BC #### [facility] [address] [place] [address] Dr. Christiane Blancas Platelet mean volume (Bld) [Entitic vol] 9.9 fL Normal 9.5-13.5 [facility] Comment on above: Performed By: #### C BC #### [facility] [address] [place] [address] Dr. Christiane Blancas PLT 251 103/ul Normal 150-450 [facility] Comment on above: Performed By: #### C BC #### [facility] [address] [place] [address] Dr. Christiane Blancas RBC 4.75 106/ul Normal 4.20-5.40 [facility] Comment on above: Performed By: #### C BC #### [facility] [address] [place] [address] Dr. Christiane Blancas WBC 5.7 103/ul Normal 4.0-11.0 [facility] Comment on above: Performed By: #### C BC #### [facility] [address] [place] [address] Dr. Christiane Blancas FREE T3on 02-08-2022 FREE T3 2.37 pg/mlL Normal 2.18-3.98 [facility] Comment on above: Performed By: #### F T3, CMP, LIPID, TSH #### [facility] [address] [address] [address] Christiane Blancas GLYCOHEMOGLOBIN A1Con 2021 ADA RECOMMENDATION SEE BELOW Normal [facility] Comment on above: Result Comment: ADA RECOMMENDED LIMIT 4.0 - 6.0 ADA THERAPEUTIC TARGET < 7.0 ACTION SUGGESTED > 7.0 Performed By: #### A 1C #### [facility] [address] [address] [address] Christiane Blancas Glucose [Mass/Vol] 123 mg/dL Normal [facility] Comment on above: Performed By: #### A 1C #### [facility] [address] [address] [address] Christiane Blancas HbA1c (Bld) [Mass fraction] 5.9 % Normal 4.5-6.2 [facility] Comment on above: Performed By: #### A 1C #### [facility] [address] [place] [address] Dr. Christiane Blancas LIPID PROFILEon 02-08-2022 CHOL-HDL RATIO NORM SEE BELOW Normal [facility] Comment on above: Result Comment: 3.3 - 4.4 LOW RISK 4.4 - 7.1 AVERAGE RISK 7.1 - 11.0 MODERATE RISK >11.0 HIGH RISK Performed By: #### F T3, CMP, LIPID, TSH #### [facility] [address] [place] [address] Dr. Christiane Blancas Cholesterol [Mass/Vol] 226 mg/dL Critically high <=200 [facility] Comment on above: Performed By: #### F T3, CMP, LIPID, TSH #### [facility] [address] [place] [address] Dr. Christiane Blancas Cholesterol in HDL [Mass/Vol] 36 mg/dL Critically low 40-60 [facility] Comment on above: Performed By: #### F T3, CMP, LIPID, TSH #### [facility] [address] [place] [address] Dr. Christiane Blancas Cholesterol in LDL [Mass/Vol] 150.6 mg/dL Normal [facility] Comment on above: Performed By: #### F T3, CMP, LIPID, TSH #### [facility] [address] [address] [address] Christiane Blancas Cholesterol.total/C holesterol in HDL [Mass ratio] 6.3 {ratio} Normal [facility] Comment on above: Performed By: #### F T3, CMP, LIPID, TSH #### [facility] [address] [address] [address] Christiane Blancas HDL NORMAL > or = 60 mg/dl - LO W CARDIOVASCULAR RISK <40 mg/dl - HIGH CARDIOVASCULAR RISK Normal [facility] Comment on above: Performed By: #### F T3, CMP, LIPID, TSH #### [facility] [address] [address] [address] Christiane Blancas LDL CALC NORMAL SEE BELOW Normal [facility] Comment on above: Result Comment: <100 mg/dl OPTIMAL 100 - 129 mg/dl NEAR OR ABOVE OPTIMAL 130 - 159 mg/dl BORDERLINE HIGH 160 - 189 mg/dl HIGH >190 mg/dl VERY HIGH Performed By: #### F T3, CMP, LIPID, TSH #### [facility] [address] [address] [address] Christiane Blancas Triglyceride [Mass/Vol] 197 mg/dL Critically high <=150 [facility] Comment on above: Performed By: #### F T3, CMP, LIPID, TSH #### [facility] [address] [address] [address] Christiane Blancas VLDL CALC 39.4 mg/dL Normal [facility] Comment on above: Performed By: #### F T3, CMP, LIPID, TSH #### [facility] [address] [address] [address] Chirstiane Blancas PROF 14(COMP METB)on 022 Albumin [Mass/Vol] 3.8 g/dL Normal 3.4-5.0 [facility] Comment on above: Performed By: #### F T3, CMP, LIPID, TSH #### [facility] [address] [address] [address] Christiane Blancas Albumin/Globulin [Mass ratio] 1.2 {ratio} Normal [facility] Comment on above: Performed By: #### F T3, CMP, LIPID, TSH #### [facility] [address] [address] [address] Christiane Blancas ALP [Catalytic activity/Vol] 66 U/L Normal 46-116 [facility] Comment on above: Performed By: #### F T3, CMP, LIPID, TSH #### [facility] [address] [address] [address] Christiane Blancas ALT [Catalytic activity/Vol] 44 U/L Normal 14-59 [facility] Comment on above: Performed By: #### F T3, CMP, LIPID, TSH #### [facility] [address] [address] [address] Christiane Blancas Anion gap [Moles/Vol] 13.8 mmol/L Normal [facility] Comment on above: Performed By: #### F T3, CMP, LIPID, TSH #### [facility] [address] [place] [address] Dr. Christiane Blancas AST [Catalytic activity/Vol] 26 U/L Normal 15-37 [facility] Comment on above: Performed By: #### F T3, CMP, LIPID, TSH #### [facility] [address] [address] [address] Christiane Blancas Bilirubin [Mass/Vol] 0.4 mg/dL Normal 0.2-1.0 [facility] Comment on above: Performed By: #### F T3, CMP, LIPID, TSH #### [facility] [address] [address] [address] Christiane Blancas Calcium [Mass/Vol] 8.9 mg/dL Normal 8.5-10.1 [facility] Comment on above: Performed By: #### F T3, CMP, LIPID, TSH #### [facility] [address] [address] [address] Christiane Blancas Chloride [Moles/Vol] 107 mmol/L Normal 98-107 [facility] Comment on above: Performed By: #### F T3, CMP, LIPID, TSH #### [facility] [address] [address] [address] Christiane Blancas CO2 [Moles/Vol] 27.1 mmol/L Normal 21.0-32.0 [facility] Comment on above: Performed By: #### F T3, CMP, LIPID, TSH #### [facility] [address] [address] [address] Christiane Blancas Creatinine [Mass/Vol] 0.92 mg/dL Normal 0.55-1.02 [facility] Comment on above: Performed By: #### F T3, CMP, LIPID, TSH #### [facility] [address] [address] [address] Christiane Blancas EGFR-AF CITIZEN [place] >60 Normal >=60 [facility] Comment on above: Performed By: #### F T3, CMP, LIPID, TSH #### [facility] [address] [place] [address] Dr. Christiane Blancas EGFR-NON AF CITIZEN [place] >60 Normal >=60 [facility] Comment on above: Performed By: #### F T3, CMP, LIPID, TSH #### [facility] [address] [place] [address] Dr. Christiane Blancas Globulin (S) [Mass/Vol] 3.2 g/dL Normal [facility] Comment on above: Performed By: #### F T3, CMP, LIPID, TSH #### [facility] [address] [place] [address] Dr. Christiane Blancas Glucose [Mass/Vol] 165 mg/dL Critically high 74-106 T [facility] Comment on above: Performed By: #### F T3, CMP, LIPID, TSH #### [facility] [address] [address] [address] Christiane Blancas Potassium [Moles/Vol] 3.9 mmol/L Normal 3.5-5.1 [facility] Comment on above: Performed By: #### F T3, CMP, LIPID, TSH #### [facility] [address] [place] [address] Dr. Christiane Blancas Protein [Mass/Vol] 7.0 g/dL Normal 6.4-8.2 [facility] Comment on above: Performed By: #### F T3, CMP, LIPID, TSH #### [facility] [address] [place] [address] Dr. Christiane Blancas Sodium [Moles/Vol] 144 mmol/L Normal 136-145 [facility] Comment on above: Performed By: #### F T3, CMP, LIPID, TSH #### [facility] [address] [place] [address] Dr. Christiane Blancas Urea nitrogen [Mass/Vol] 12.0 mg/dL Normal 7.0-18.0 [facility] Comment on above: Performed By: #### F T3, CMP, LIPID, TSH #### [facility] [address] [place] [address] Dr. Christiane Blancas Urea nitrogen/Creatinine [Mass ratio] 13.0 mg/mg Normal [facility] Comment on above: Performed By: #### F T3, CMP, LIPID, TSH #### [facility] [address] [place] [address] Dr. Christiane Blancas TSHon 02-08-2022 TSH 1.752 uIU/mL Normal 0.358-3.740 [facility] Comment on above: Performed By: #### F T3, CMP, LIPID, TSH #### [facility] [address] [place] [address] Dr. Christiane Blancas VITAMIN D 25 OHon 02-08-2022 VIT D 25-OH 21.5 ng/mL Normal [facility] Comment on above: Performed By: #### V ITAD #### [facility] [address] [place] [address] Dr. Christiane Blancas VIT D RANGES SEE BELOW Normal [facility] Comment on above: Result Comment: <20 ng/mL Vit D deficient 20 - <30 ng/mL Vit D insufficient 30 - 100 ng/mL Vit D sufficient >100 ng/mL Potential Toxicity Performed By: #### V ITAD #### [facility] [address] [place] [address] Dr. Christiane Blancas [facility] SARS-CoV-2 (COVID-19) RNA CHRIS+probe Ql (Unsp spec) Not detected Normal NOT DETECTED [facility] Comment on above: Result Comment: This test is not yet approved or cleared by the [place] FDA. When there are no FDA-approved or cleared tests available, and other criteria are met, FDA can make tests available under an emergency access mechanism called an Emergency Use Authorization (EUA). The EUA for this test is supported by the [place] of Health and Human Service's (HHS's) declaration [...] SARS-CoV-2. Performed By: #### C VDTBH #### [facility] [address] [place] [address] Dr. Christiane Blancas INFLUENZA A AND B AGon 08-23 [facility] SEE BELOW Normal [facility] Comment on above: Result Comment: Nega tive for Flu A protein angiten. Infection due to Flu A cannot be ruled out. Flu A angiten in the sample may be below the detection limit of the test. Performed By: #### I NFLUAB #### [facility] [address] [place] [address] Dr. Christian[facility]anc[facility] Normal [facility] Comment on above: Result Comment: Nega tive for Flu B protein antigen. Infection due to Flu B cannot be ruled out. Flu B antigen in the sample may be below the detection limit of the test. Performed By: #### I NFLUAB #### [facility] [address] [place] [address] Dr. Christiane Blancas INFLUENZA A AG Negative Normal NEGATIVE SEE COMMENT [facility] Comment on above: Performed By: #### I NFLUAB #### [facility] [address] [place] [address] Dr. Christiane Blancas INFLUENZA B AG Negative Normal NEGATIVE SEE COMMENT [facility] Comment on above: Performed By: #### I NFLUAB #### [facility] [address] [address] [address] Christiane Blancas INTERNAL CONTROLS Within Normal Limits Normal Wi thin Normal Limits [facility] Comment on above: Performed By: #### I NFLUAB #### [facility] [address] [address] [address] Christiane Blancas Vital Signs Date Time Vital Sign Value Performing Clinician Santino jarvis 11-14-2024 15:52-0400 Body mass index (BMI) [Ratio] 26.68 kg/m2 Elio Visci DO Work Phone: [facility] 11-14-2024 15:52-0400 Body weight 69.4 kg Elio Visci DO Work Phone: [facility] 11-14-2024 15:52-0400 Diastolic blood pressure 70 mm[Hg] Elio Visci DO Work Phone: [facility] 11-14-2024 15:52-0400 Systolic blood pressure 122 mm[Hg] Elio Visci DO Work Phone: [facility] 10-03-2023 13:55-0400 [facility] 10-03-2023 13:55-0400 Diastolic blood pressure 80 mm[Hg] Maxime NILL [facility] 10-03-2023 13:55-0400 Heart rate 72 /min Maxime NILL [facility] 10-03-2023 13:55-0400 Systolic blood pressure 122 mm[Hg] Maxime NILL [facility] Encounters Encounter Date Encounter Type Care Provider Facility Start: 11-14-2024 End: 11-14-2024 Patient encounter status Elio Ellis Visci DO Work Phone: [facility] [employer] Start: 11-14-2024 End: 11-14-2024 Periodic preventive med est patient 40-64yrs Elio Blackman DO Work Phone: [facility] Comment on above: Encounter for gyneco logical examination with abnormal finding (Primary Dx); Encounter for screening mammogram for malignant neoplasm of breast; Screening for malignant neoplasm of cervix; Screening for HPV (human papillomavirus); Vaginal atrophy; Family history of breast cancer; Other constipation Start: 11-14-2024 End: 11-14-2024 ambulatory ELIO BLACKMAN Not Available Start: 12-01-2023 End: 12-01-2023 ambulatory Maxime ENCINAS Facility:[facility] Start: 12-01-2023 End: 12-01-2023 Patient encounter procedure Maxime ENCINAS [facility] Start: 11-24-2023 ambulatory Maxime ENCINAS Facility:[facility] Start: 11-23-2023 End: 11-23-2023 Patient encounter procedure DO Eilo Blackman Work Phone: [facility] Work Phone: Start: 11-23-2023 End: 11-23-2023 ambulatory DO Elio Blackman Work Phone: [facility] Work Phone: Start: 11-15-2023 End: 11-15-2023 ambulatory Maxime Encinas [facility] Work Phone: Start: 11-15-2023 End: 11-15-2023 Departed Referred MD Maxime Encinas Work Phone: [facility] Start: 11-15-2023 End: 11-15-2023 ambulatory Maxime ENCINAS Facility:[id number] Start: 10-03-2023 End: 10-03-2023 ambulatory Maxime ENCINAS Facility:[facility] Start: 10-03-2023 End: 10-03-2023 [facility] Start: 11-11-2022 End: 11-11-2022 ambulatory MD Amado Terrell Work Phone: [facility] Work Phone: Start: 11-11-2022 End: 11-11-2022 Patient encounter procedure MD Amado Terrell Work Phone: [facility] Work Phone: Start: 06-29-[address] AMADO TERRELL Facility :[facility] Start: 02-10-2022 Encounter for genera l adult medical examination without abnormal findings DR AMADO TERRELL [facility] Start: 02-08-2022 End: 02-09-[address] AMADO TERRELL Facility:[facility] Start: 02-08-2022 End: 02-09-2022 Encounter for general adult medical examination without abnormal findings DR AMADO TERRELL Facility:[facility] Start: 08-23-2021 End: 08-23-[address] AMADO TERRELL Facility:[facility] Procedures Date Procedure Procedure Detail Performing Clinician Start: 11-23-2023 End: 11-23-2023 Screening mammography of bilateral breasts DO Elio Blackman Work Phone: Start: 11-15-2023 Esophagogastroduodenoscopy Maxime ENCINAS Start: 11-11-2022 Screening mammography of bilateral breasts MD Amado Terrell Work Phone: Start: 10-20-2021 Microscopic observation [Identifier] in Cervix by Cyto stain Elio Visci DO Work Phone: Start: 01-27-2021 Colonoscopy Elio Visci DO Work Phone: Start: 01-27-2021 Colonoscopy Maxime NIXL Appendectomy Maxime NIXL section Maxime NIL L section Maxime Vilchis Comment on above: x 2 Plan of Treatment Date Care Activity Detail Author Start: 01-27-2031 Screening for malignant neoplasm of colon [facility] Start: 01-13-2025 Influenza vaccination Influenza Vacc ine (#1) [facility] Start: 11-22-2024 End: 01-15-2026 DBT Breast - bilateral screening Bilateral screening mammogram with tomosynthesis Imaging Routine Encounter for screening mammogram for malignant neoplasm of breast Family history of breast cancer Expected: 11/22/2024, Expires: 01/15/2026 [facility] Comment on above: Expected: 11/22/2024 , Expires: 01/15/2026 Start: 11-22-2024 Screening for malignant neoplasm of breast Mammogram [facility] Start: 10-20-2024 Screening for malignant neoplasm of cervix [facility] Start: 1996 Screening for malignant neoplasm of cervix HPV/Cotest [facility] Start: 1965 Screening for malignant neoplasm of colon [facility] IGP, APT HPV,RFX 16/18,45 IGP, APT HPV,RFX 16/18,45 Lab Routine Screening for malignant neoplasm of cervix Screening for HPV (human papillomavirus) Ordered: 11/14/2024 [facility] Work Phone: Comment on above: Ordered: 11/14/2024 Immunizations Immunization Date Immunization Notes Care Provider [facility] 05-10-2021 SARS-CoV-2 (COVID-19 ) mRNA-1273 vaccine Maxime NIXL [facility] 09-02-2020 SARS-CoV-2 (COVID-19 ) mRNA-1273 vaccine Maxime NILL [facility] 07-27-2020 SARS-CoV-2 (COVID-19 ) mRNA-1273 vaccine Maxime NILL [facility] Payers Date Payer Category Payer Self-pay [id number] 2022 Medicaid (Managed Care) [employer] [id number] 2022 Medicaid [id number] 1965 Unknown [id number] 1966 Unknown [id number] 1966 Unknown [id number] 1966 Unknown [id number] 1966 Unknown [id number] 727 1966 Unknown [id number] 727 1966 Unknown [id number] [id number] 1959 Self-pay [id number] 1959 Unknown [id number] Unknown [place] [employer]/[place] [id number] Unknown [id number] Unknown [id number] Social History Date Type Detail Facility [facility] Work Phone: Start: 1965 Sex Assigned At Female F [facility] Start: 10-26-2022 End: 10-03-2023 Tobacco smoking status Ex-smoker (finding) [facility] Tobacco smoking status Never Victoria voHeladio [facility] Start: 10-26-2022 End: 11-14-2024 Sex Assigned At Female Mann Leija [facility] History of tobacco use Current smoker [facility] History of tobacco use Cigarette Smoker [facility] Start: 10-26-2022 Tobacco use and exposure Smokeless tobacco non-user [facility] Start: 11-14-2024 Alcoholic beverage intake Lifetime non-drinker (finding) [facility] Start: 10-26-2022 End: 11-14-2024 History of Social function [facility] How often to you hav e a drink containing alcohol? Never [facility] Start: 10-26-2022 Tobacco Comment >10 years [facility] Start: 11-08-2022 Alcohol Comment caffeine intak e: 3-4 cups per day of coffee [facility] Start: 1965 Sex assigned at Not on file N [facility] Medical Equipment Procedure Code Equipment Code Equipment Origin al Text Equipment Identifier Dates 1 each by Other route if needed. Start: 01-31-2022 Functional Status Date Assessment Result Facility 10-03-2023 Functional Status N/A Court [facility]ella [facility] History of Present illness Narrative 11-14-2024 Elio Blackman, DO - 11/14/2024 3:30 PM EDT Note Date & Type Note Facility 11-14-2024 History of Presen t illness Narrative Images from the original note were not included. Elio Blackman, Obstetrics and Gynecology Justin Abarca 1965 11/14/24 [id number] Yearly Wellness Exam Chief Complaint Patient presents with Gynecologic Exam Pt presents for yearly. Denies breast,bowel,bladder,nib finisher problems. Visit Vitals BP 122/70 Wt 153 lb BMI 26.68 kg/m OB Status Ablation Smoking Status Former BSA 1.76 m History of Present Illness Current Outpatient Medications [...] the morning and 1 tablet before bedtime. [employer] Ultra test strip 1 each by Other [...] 10/20/21- Neg, HPV Neg Mammogram 11/23/23- Neg ([facility]) : mother and sister dx breast cancer, [...] palpable. BACK: No obvious scoliosis/kyphosis. FEMALE GENITOURINARY: Epilepsy Physician in room-EFG without sores/lesions, atrophic vaginal mucosa-no [...] LPN acting as scribe for Dr. Elio Blackman. Signature: Aisha Andujar LPN The documentation recorded by the scribe accurately reflects the service(s) I personally performed and the decisions I made. Signature: Elio Blackman DO Assessment & Plan documented in this encounter [facility] Clinical Note 10-03-2023 Note Date [...] day. Started ag (more content not included)... [facility] Comment on above: Result Comment: Elec tronically Signed By: ZIGGY ROWAN, Maxime Loredo\Date and Time Signed: 10/03/23 14:39 EDT Evaluation + Plan note Note Date & Type Note Facility Evaluation + Plan note No data available for this section [facility] Evaluation note Note Date & Type Note Facility Evaluation note No assessment information availa [facility] Work Phone: Evaluation note Note Date & Type Note Facility Evaluation note Diagnosis Encounter for gynecological examination with abnormal [...] breast Other constipation documented in this encounter [facility] Discharge instructions Note Date & Type Note Facility Hospital Discharge instructions No data available for this section [facility] Progress note Note Date & Type Note Facility Progress note No data available for this section [facility] Summary Purpose Family History No Family History Records Found No data available for this section No Family History Records Found No data [...] content) DATE CREATED AUTHOR 06/29/2022 [facility] DATE CREATED AUTHOR AUTHOR'S ORGANIZ ATION 11/29/2023 [facility] DATE CREATED AUTHOR AUTHOR'S ORGANIZ ATION 12/04/2023 [facility] DATE CREATED AUTHOR AUTHOR'S ORGANIZ ATION 11/17/2024 [facility] EPIC Care Teams (unrecognized sec tion and content) Team Status: Active Member Role Status Dates Amado Terrell MD Primary Care Provider Active Team Status: Inactive Member Role Status Dates Amado Terrell MD Primary Care Provider Active Elio Blackman DO Attending Provider Active Team Status: Inactive Member Role Status Dates Maxime Encinas MD [facility] Attending Provider Active Start: November 15, 2023 End: November 15, 2023 Team Status: Inactive Member Role Status Dates Referral Self Attending Provider Active Start: Yoandy hansen 2023 End: November 23, 2023 Elio Blackman DO Referring Provider Active Sta rt: November 23, 2023 End: November 23, 2023 Showroom Manager Relationship Specialty Start Date End Date Amado Terrell MD PCP - General Family Medicine 10/26/22 Goals (unrecognized section and content) Goals may be documented in a n alternate section No data available for this sectionGoals may be documented in an alternate sectionGoals may be documented in an alternate section No data available for this section Reason for Visit (unrecogniz ed section and content) Reason Comments Gynecologic Exam Pt presents for year ly. Denies breast,bowel,bladder,nib finisher problems. FOR RECORDS PERTAINING TO PATIENTS WHO ARE [...] BE BASED ON THE PRIMARY CLINICAL RECORDS. [employer] provides no warranty or guarantee of the accuracy or completeness of information in this document.
--- OUTSIDE RECORDS SUMMARY | 2024-11-17 09:12 | XMS_ITS | Encounter Summary ---
Author Organization [facility] Address [address] [place] [address] Care Team Providers Care Electrician Research Name Role Phone Isaiah Terrell MD Primary Care Provider [phone] Encounter Details Date Type Department Care Team (Late st Contact Info) Description 11/24/2023 Orders Only [facility] [address] [facility] [address] [place] [id number] Elio Zamudio, DO [address] [facility] [address] [place] [address] Social History Tobacco Use Types Packs/Day Years [...] on filedocumented in this encounter Care Teams Electrician Research Relationship Specialty Start Date End Date Isaiah Terrell MD PCP - General Family Medicine 10/26/22 documented as of this encounter
--- OUTSIDE RECORDS SUMMARY | 2024-11-17 09:12 | XMS_ITS | Patient Health Record ---
Author Organization The [facility] in [place] Address [address] [place] [address] Care Team Providers Care Item Processor Name Role Phone Ezra Terrell Primary Care Provider [phone] Allergies Allergen (clinical drug ingredient) Drug/Non Drug Allergy documented on EMR Reaction Allergy Type Onset Date Status aspirin Aspirin anaphylaxis Drug Allergy Activ e Results Component Value Reference Range Notes TSH Reviewed date:10/27/2024 12:07:43 PM Interpretation: Performing Lab: Notes/Report: [facility] , Thyroid Stimulating Hormone 1.207 0.358-3.740 u IU/mL Performing Lab: see note ML - [facility] LB T4 Reviewed date:10/27/2024 12:07:43 PM Interpretation: Performing Lab: Notes/Report: [facility] , T4 Thyroxine 3.80 4.80-13.90 ug/dL Performing Lab: see note - [facility] LB PROF 14(COMP METB) Reviewed date:10/27/2024 12:07:43 PM Interpretation: Performing Lab: Notes/Report: [facility] , Sodium 141 136-145 mmol/L Potassium 4.0 3.5-5.1 mmol/L Chloride 102 98-107 mmol/L Carbon Dioxide 25.2 21.0-32.0 mmol/L Anion Gap 17.8 Glucose 357 74-106 mg/dL Blood Urea Nitrogen 17.0 7.0-18.0 mg/dL Creatinine 0.75 0.55-1.02 mg/dL Estimated GFR ( Cady >60 >=60 mL/min/1.73m 2 Estimated GFR (Non- Codie >60 >=60 mL/min/1.73m 2 BUN Creatinine Ratio 22.7 Calcium 9.5 8.5-10.1 mg/dL Bilirubin Total 0.5 0.2-1.0 mg/dL Aspartate Amino Transferase 29 15-37 U/L Alanine Aminotransferase 54 14-59 U/L Alkaline Phosphatase 157 46-116 U/L Total Protein 7.4 6.4-8.2 g/dL Albumin Level 3.9 3.4-5.0 g/dL Globulin 3.5 Albumin Globulin Ratio 1.1 Performing Lab: see note ML - [facility] LIPID PROFILE Reviewed date:10/27/2024 12:07:43 PM Interpretation: Performing Lab: Notes/Report: [facility] , Triglycerides 167 <=150 mg/dL Cholesterol 160 <=200 mg/dL HDL Cholesterol 32 40-60 mg/dL > or =60 mg/dl - LOW CARDIOVASCULAR RISK <40 mg/dl - HIGH CARDIOVASCULAR RISK LDL Cholesterol Calculated 95.0 <100 mg/dl OPTIMAL 100-129 mg/dl NEAR OR ABOVE OPTIMAL 130-159 mg/dl BORDERLINE HIGH 160-189 mg/dl HIGH >190 mg/dl VERY HIGH VLDL CHOLESTEROL 33.4 Chol HDL Ratio 5.0 3.3 - 4.4 LOW RISK 4.4 - 7.1 AVERAGE RISK 7.1 - 11.0 MODERATE RISK >11.0 HIGH RISK Performing Lab: see note ML - [facility] IRON Reviewed date:10/27/2024 12:07:43 PM Interpretation: Performing Lab: Notes/Report: [facility] , Iron 72.0 50.0-170.0 ug/dL Performing Lab: see note ML - [facility] GLYCOHEMOGLOBIN A1C Reviewed date:10/27/2024 12:07:43 PM Interpretation: Performing Lab: Notes/Report: [facility] , Glycohemoglobin A1C 11.5 4.5-6.2 % ADA RECOMMENDED LIMIT 4.0 - 6.0 ADA THERAPEUTIC TARGET < 7.0 ACTION SUGGESTED > 7.0 Estimated Average Glucose 283 Performing Lab: see note ML - [facility] FREE T3 Reviewed date:10/27/2024 12:07:43 PM Interpretation: Performing Lab: Notes/Report: [facility] Free T3 2.21 2.18-3.98 pg/mL Performing Lab: see note ML - [facility] LB CBC AUTO DIFF Reviewed date:10/27/2024 12:07:43 PM Interpretation: Performing Lab: Notes/Report: [facility] , White Blood Count 5.2 4.0-11.0 10 3/uL Red Blood Count 5.11 4.20-5.40 10 6/uL Hemoglobin 15.0 12.0-16.0 g/dL Hematocrit 44.0 36.0-48.0 % Mean Corpuscular Volume 86.1 81.0-99.0 fL Mean Corpuscular Hemoglobin 29.4 26.7-34.0 pg Mean Corpuscular HGB Conc 34.1 29.9-35.2 g/dL Red Cell Distribution Width 12.3 11.0-15.0 % Platelet Count 138 150-450 10 3/uL Mean Platelet Volume 10.9 9.5-13.5 fL Neutrophils Percent Auto 60.1 43.0-75.0 % Lymphocytes Percent Auto 25.0 20.5-60.0 % Monocytes Percent Auto 9.7 1.7-12.0 % Eosinophils Percent Auto 3.8 0.9-7.0 % Basophils Percent Auto 1.0 0.2-2.0 % Immature Granulocytes Pct Auto 0.4 0.0-0.5 % Neutrophils Absolute Auto 3.2 1.4-6.5 10 3/uL Lymphocytes Absolute Auto 1.3 1.2-3.8 10 3/uL Monocytes Absolute Auto 0.5 0.3-0.8 10 3/uL Eosinophils Absolute Auto 0.2 0.0-0.7 10 3/uL Basophils Absolute Auto 0.1 0.0-0.1 10 3/uL Immature Granulocytes Abs Auto 0.02 0.00-0.03 10 3/uL Performing Lab: see note ML - [facility] LB Reason For Referral No Information Medications Medication SIG (Take, Route, Frequency, Duration) Notes Start Date End Date Status Glimepiride 4 MG TAKE 1 TABLET BY SCOTT TH EVERY DAY WITH BREAKFAST OR THE FIRST MAIN MEAL OF THE DAY FOR 90 DAYS Orally Once a day for 30 days Active Lancets 33G - Use 1 lancet to poke finger for glucose reading once daily DX E11.9 for 90 days 10/28/2024 Active Liothyronine Sodium 5 MCG 3 tablet on an empty stomach Orally Once a day for 90 days Active Pantoprazole Sodium 40 MG TAKE 1 TABLET BY MOUTH EVERY EVENING for 90 Active Simvastatin 20 MG TAKE 1 TABLET BY SCOTT TH EVERY DAY IN THE EVENING 30 DAYS for 90 Active Levothyroxine Sodium 50 MCG 1 tablet in the morning on an empty stomach Orally Once a day for 30 days 10/28/2024 Active Blood Glucose Meter -- Use glucometer to monitor glucose levels DX E11.9 for 365 days 10/28/2024 Active Test Strips - use 1 strip via mete r daily to monitor glucose level. DX E11.9 for 90 days 10/28/2024 Active Actos 15 MG 1 tablet Orally Once a day for 30 day(s) 11/11/2024 Active OLANZapine 2.5 MG TAKE 1 TABLET BY SCOTT TH TWICE A DAY for 90 days Active Ferrous Sulfate 325 [...] hrs for 30 days PRN 09/13/2023 Active metFORMIN HCl 500 MG 1 tablet [...] Problem Status W/U Status Risk Notes Problem 81571577 Hypothyroidism, unspecified (E03.9) Active confirmed Problem Syncope and collapse (062606326) Syncope and collapse (R55) Active confirmed Problem 91423207 Diaphragmatic hernia without obstruction or gangrene (K44.9) Active confirmed Problem 496272743 Fatty (change of ) liver, not elsewhere classified (K76.0) Active confirmed Problem 509330980 Other specified abnormal findings of blood chemistry (R79.89) Active confirmed Problem Fatigue (32721303) Fatigue (R53.83) Active conf irmed Problem Asthma (161954318) Asthma (J45.909) Active conf irmed Problem Gastroesophageal reflux disease (922507773) GERD (gastroesophageal reflux disease) (K21.9) Active confirmed Problem Anxiety (23057734) Anxiety (F41.9) Active confi rmed Problem Vertigo (440698706) Vertigo (R42) Active confir med Problem Bipolar 1 disorder (179740292) Bipolar 1 disorder (F31.9) Active confirmed Problem Insomnia (010539561) Insomnia (G47.00) Active c onfirmed Problem Migraine (81101625) Migraine (G43.909) Active c onfirmed Problem Allergic rhinitis (78822204) Allergic rhinitis (J30.9) Active confirmed Problem Well adult (476338136) Well adult (Z00.00) Activ e confirmed Problem Cholelithiasis (391758251) Cholelithiases (K80.20) Active confirmed Problem Conjunctivitis (0079494) Conjunctivitis (H10.9) Active confirmed Problem Chronic otitis exter na (05553562) Chronic otitis externa of left ear (H60.62) Active confirmed Problem hypercholesterolemia (disorder) (00272229) Hypercholesteremia (E78.00) Active confirmed Problem Type II diabetes mellitus without complication (647669936) Diabetes (E11.9) Active confirmed Vital Signs Blood pressure diastolic 80 mm Hg 10/24/2024 Height 64 in 10/24/2024 Blood pressure systolic 138 mm Hg 10/24/2024 Weight 155.2 lbs 10/24/2024 BMI 26.64 kg/m2 10/24/2024 Encounters Encounter Location Date Provider Diagnosis [facility] [address] [place] [address] 10/24/2024 Ezra Terrell Well adult Z00.00 [facility] [address] [place] [address] 10/27/2024 Ezra Terrell Encounter for genera l adult medical examination without abnormal findings Z00.00 ; Diabetes E11.9 and Hypothyroidism, unspecified E03.9 [facility] [address] [place] [place] [address] 11/11/2024 Ezra Terrell [facility] [place] [address] [facility] [place] [address] 03/21/2024 Ezra Terrell [facility] [place] [address] [facility] [address] [facility] [address] 04/23/2024 Ezra Terrell Encounter for gener al adult medical examination without abnormal findings Z00.00 [facility] [address] [place] [place] [address] 06/13/2024 Ezra Nidhi [facility] [address] [place] [address] 10/16/2024 Ezra Terrell Assessments Encounter Date Diagnosis (ICD Code) Assessment Notes Treatment Notes Treatment Clinical Notes Section Notes 10/24/2024 Well adult (ICD-10 - Z00.00) 04/23/2024 Encounter for general adult medical examination without abnormal findings (ICD-10 - Z00.00) 10/27/2024 Encounter for general adult medical examination without abnormal findings (ICD-10 - Z00.00) 10/27/2024 Diabetes (ICD-10 - E11.9) 10/27/2024 Hypothyroidism, unspecified (ICD-10 - E03.9) Plan Of Treatment Pending Test Test Name Order Date CMP (COMPLETE METABOLIC PANEL) 3 CMP (COMPLETE METABOLIC PANEL) 4 HEMOGLOBIN A1C (GLYCO) 09/12/2023 HEMOGLOBIN A1C (GLYCO) 10/24/2024 HEMOGLOBIN A1C (GLYCO) 02/13/2023 IRON, TOTAL 10/24/2024 IRON, TOTAL 09/12/2023 LIPID PANEL (CHOL/TRIG/HDL/LDL) 09/12/19 24 LIPID PANEL (CHOL/TRIG/HDL/LDL) 02/14/20 23 LIPID PANEL (CHOL/TRIG/HDL/LDL) 10/25/19 25 CBC WITH DIFF 02/13/2023 CBC WITH DIFF 09/12/2023 VITAMIN D, 25 LEVEL (TOTAL) 02/13/2023 VITAMIN D, 25 LEVEL (TOTAL) 09/12/2023 ACUTE HEPATITIS PANEL 09/17/2023 US Liver 09/17/2023 US Pancreas 09/17/2023 US Gallbladder 09/17/2023 THYROID PANEL (T4/TSH/FREE T3) 4 THYROID PANEL (T4/TSH/FREE T3) 5 THYROID PANEL (T4/TSH/FREE T3) 4 THYROID PANEL (T4/TSH/FREE T3) 5 THYROID PANEL (T4/TSH/FREE T3) 3 CMP (COMP MET SOLANO) w/eGFR CKD-EPI 2024 CBC WITH DIFF 10/24/2024 Insurance Providers Payer Name Payer Address Payer Phone Subscriber Number Group Number Insured Name Patient Relationship to Insured Coverage Start Date Coverage End Date [employer] [place] [employer] [address] [place] [phone] [id number] Francia Abarca Self - patient is the insured 3 3 [employer] [place] [employer] [address] [place] [address] [phone] [id number] Francia Abarca Self - patient is the [...] E78.00 Migraine G43.909 Surgical History Surgery Date(Month/Year) DELIVERY x2 APPENDECTOMY Colonoscopy 01/27/2021 EGD 11/15/23 Hospitalization History Reason Date(Month/Year) CHEST PAIN 2008
--- NOTE | 2024-11-17 09:13 | ECG_ITS ---
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 Measurements Intervals Musella Rate: 102 P: 56 MD: 134 QRS: 77 QRSD: 76 T: -51 QT: 312 QTc: 371 Interpretive Statements 1120 Sinus tachycardia [address] depression 4364 Twave abnormality, possible anterolateral ischemia 4664 Twave abnormality, possible inferior ischemia 9150 abnormal ECG Compared to ECG 03/02/2019 12:24:32 Possible ischemia now present Electronically Signed On 11-18-2024 20:26:52 EDT by BALTAZAR ALCALA M.D.
--- NOTE | 2024-11-17 09:13 | XR_ITS ---
The [address] [address] Patient Name: JUSTIN PUTNAM MRN: [id number] date: 1965 Sex: F Assigned Patient Location: ER Current Patient Location: ER Accession/Order Number: [id number] Exam Date: 11/17/2024 09:51 Report Date: 11/17/2024 09:52 At the request of: AMERICA GRAF MD Procedure: XR chest 1V Plain film chest Single view HISTORY: Cough and shortness of breath COMPARISON: 03/02/2019 FINDINGS: SUPPORT DEVICES: None POSTSURGICAL CHANGES: None HEART: Within normal limits PULMONARY SHANA: Within normal limits MEDIASTINUM: Unremarkable LUNGS AND PLEURA: No acute lung process, pleural effusion or pneumothorax identified. BONY STRUCTURES: Intact ADDITIONAL FINDINGS None XR/XR chest 1V IMPRESSION: No acute process. Impression dictated by: Bro Gill M.D. 11/17/2024 9:52 AM Dictation Location: [facility] Electronically authenticated by: [id number] Y Date: 11/17/2024 09:52
--- NOTE | 2024-11-17 09:14 | ED_ITS ---
HPI HPI - General Adult General Chief complaint: Shortness of Breath/Dyspnea Stated complaint: SHORTNESS OF BREATH Time Seen by Provider: 11/17/24 08:59 Source: patient Mode of arrival: walk-in History of Present Illness HPI narrative: 58-year-old female presents for shortness of breath. She has a history of asthma but has not had an attack in 10 years. She had a very old inhaler which did not help. She has not been around any new animals and does not know what might have set this off. She has been coughing up some white phlegm but has not had a fever or hemoptysis. Related Data Home Medications ?Medication ?Instructions ?Recorded ?Confirmed albuterol 90 mcg/actuation aerosol 90 mcg inhalation . qid prn sob 11/07/23 11/17/24 inhaler cholecalciferol (vitamin D3) 50 2,000 unit PO DAILY 11/17/24 mcg (2,000 unit) capsule (Vitamin D3) glimepiride 1 mg tablet 1 mg PO DAILY 11/07/2311/17 liothyronine 5 mcg tablet 10 mcg PO DAILY 11/07/2311/06 metformin 500 mg tablet 500 mg PO BID 11/07/2311/17 pantoprazole 40 mg tablet,delayed 40 mg PO DAILY 11/0611/15/23 release (Protonix) simvastatin 20 mg tablet 20 mg PO DAILY 11/07/2311/06 venlafaxine 150 mg 150 mg PO DAILY 11/07/2311/06 capsule,extended release 24 hr venlafaxine 75 mg capsule,extended 75 mg PO DAILY 10/1411/17/24 release 24 hr olanzapine 2.5 mg tablet mg 11/17/24 pioglitazone 15 mg tablet mg 11/17/24 Previous Rx's ?Medication ?Instructions ?Recorded pantoprazole 40 mg tablet,delayed 40 mg PO BID 6 weeks #90 tabs 11/15/23 release (Protonix) albuterol sulfate 90 mcg/actuation 2 inh inhalation Q4 H PRN shortness 11/17/24 aerosol inhaler of breath or wheezing #8.5 g elder azithromycin 250 mg tablet See Rx Instructions PO .COM PLEX #6 11/17/24 (Zithromax Z-Ron) tabs prednisone 10 mg tablet See Rx Instructions .Route 0 7/06/25 .COMPLEX #30 tabs Allergies Allergy/AdvReac Type Severity Reaction Status Date / Time aspirin Allergy Severe Anaphylaxis Verified 11/07/23 13:43 Review of Systems ROS Narrative A ten point review of systems is negative except as noted above. PFSH PFS Medical History (Updated 11/17/24 @ 09:59 by Gregory Jensen MD) Depression ?F32.A - Depression, unspecified (ICD-10) Menopausal state ?N95.1 - Menopausal and female climacteric states (ICD-10) Hypercholesterolemia ?E78.00 - Pure hypercholesterolemia, unspecified (ICD-10) Migraines ?G43.909 - Migraine, unspecified, not intractable, without status migrainosus (ICD-10) Insomnia ?G47.00 - Insomnia, unspecified (ICD-10) Globus sensation ?R09.A2 - Foreign body sensation, throat (ICD-10) Diabetes ?E11.9 - Type 2 diabetes mellitus without complications (ICD-10) Chronic GERD ?K21.9 - Gastro-esophageal reflux disease without esophagitis (ICD-10) Cholelithiasis ?K80.20 - Calculus of gallbladder without cholecystitis without obstruction (ICD-10) Asthma ?J45.909 - Unspecified asthma, uncomplicated (ICD-10) Anxiety ?F41.9 - Anxiety disorder, unspecified (ICD-10) Rhinitis ?J31.0 - Chronic rhinitis (ICD-10) Surgical History (Updated 11/07/23 @ 13:23 by Marilee Kitchen RN) H/O section ?Z98.891 - History of uterine scar from previous surgery (ICD-10) History of appendectomy ?Z90.49 - Acquired absence of other specified parts of digestive tract (ICD- 10) H/O colonoscopy ?Z98.890 - Other specified postprocedural states (ICD-10) Family History (Updated 11/07/23 @ 13:16 by Marilee Kitchen, RN) Other Family history of CHF (congestive heart failure) Family history of cancer Family history of diabetes mellitus Family history of hypertension Family history of myocardial infarction Family history of stroke Social History (Updated 11/15/23 @ 07:18 by Neha Vicente) Within the past year, how often did you have a drink containing alcohol: never Score interpretation: A score less than 3 is consistent with normal alcohol consumption. Smoking status: Former smoker Non-prescribed substance use: denies use Highest level of school completed/degree received: Bachelor's degree Little interest or pleasure in doing things: not at all Feeling down, depressed, or hopeless: not at all Exam Narrative Exam Narrative: Nurses note and vital signs reviewed and patient is not hypoxic. General: The patient appears well and in no apparent distress. Patient is resting comfortably on cart. Skin: Warm, dry, no pallor noted. There is no rash noted. Head: Normocephalic, atraumatic Eye: Normal conjunctiva, no drainage Ears, Nose, Mouth, and Throat: oral mucosa is moist. Nares patent. Cardiovascular: Regular Rate and Rhythm Respiratory: Breath sounds are diminished bilaterally but equal. Back: non-tender GI: Soft and nontender Musculoskeletal: The patient has no evidence of calf tenderness, no pitting edema, symmetrical pulses noted bilaterally Neurological: A&O, normal speech Psychiatric: Cooperative Constitutional Vital Signs, click to edit/add: Last Vital Signs Temp 98 F 11/17/24 08:58 Pulse 103 H 11/17/24 09:27 Resp 20 11/17/24 08:58 BP 135/80 11/17/24 08:58 Pulse Ox 92 L 11/17/24 09:27 O2 Del Method Nasal Cannula 11/17/24 09:27 O2 Flow Rate 2 11/17/24 09:27 Course Vital Signs Vital signs: Vital Signs Temperature 98 F 11/17/24 08:58 Pulse Rate 111 H 11/17/24 08:58 Respiratory Rate 20 11/17/24 08:58 Blood Pressure 135/80 11/17/24 08:58 Pulse Oximetry 90 L 11/17/24 08:58 Oxygen Delivery Method Room Air 11/17/24 08:58 Temperature 98 F 11/17/24 08:58 Pulse Rate 103 H 11/17/24 09:27 Respiratory Rate 20 11/17/24 08:58 Blood Pressure 135/80 11/17/24 08:58 Pulse Oximetry 92 L 11/17/24 09:27 Oxygen Delivery Method Nasal Cannula 11/17/24 09:27 Oxygen Delivery Flow Rate 2 11/17/24 09:27 Medical Decision Making [facility] Narrative Medical decision making narrative: Chest x-ray is negative and blood work is nonspecific. She is feeling improved with IV Solu-Medrol and aerosol treatment. I have no clinical suspicion for COVID. Admission versus discharge home was discussed with the patient and she is very comfortable being discharged home. She will return if symptoms worsen. She was prescribed prednisone and Zithromax and albuterol. Treatment diagnosis and follow-up were discussed with the patient. Lab Data Lab results reviewed: Yes I reviewed the patient's lab results Labs: Lab Results 11/17/24 Range/Units 09:16 WBC 4.8 (4.0-11.0) 10^3/uL RBC 4.52 (4.20-5.40) 10^6/uL Hgb 13.4 (12.0-16.0) g/dL Hct 40.2 (36.0-48.0) % MCV 88.9 (81.0-99.0) fL MCH 29.6 (26.7-34.0) pg MCHC 33.3 (29.9-35.2) g/dL RDW 13.1 (11.0-15.0) % Plt Count 127 L (150-450) 10^3/uL MPV 10.3 (9.5-13.5) fL Neut % (Auto) 63.3 (43.0-75.0) % Lymph % (Auto) 18.6 L (20.5-60.0) % [place] % (Auto) 13.0 H (1.7-12.0) % Eos % (Auto) 3.7 (0.9-7.0) % Baso % (Auto) 0.8 (0.2-2.0) % Neut # (Auto) 3.1 (1.4-6.5) 10^3/uL Lymph # (Auto) 0.9 L (1.2-3.8) 10^3/uL [place] # (Auto) 0.6 (0.3-0.8) 10^3/uL Eos # (Auto) 0.2 (0.0-0.7) 10^3/uL Baso # (Auto) 0.0 (0.0-0.1) 10^3/uL Abs Immat Gran (auto) 0.03 (0.00-0.03) 10^3/uL Imm/Tot Granulo (auto) 0.6 H (0.0-0.5) % Sodium 142 (136-145) mmol/L Potassium 3.9 (3.5-5.1) mmol/L Chloride 105 (98-107) mmol/L Carbon Dioxide 26.7 (21.0-32.0) mmol/L Anion Gap 14.2 BUN 17.0 (7.0-18.0) mg/dL Creatinine 0.74 (0.55-1.02) mg/dL Est GFR ( Amer) >60 (>=60 mL/min/1.73m^2) Est GFR (Non-Af Amer) >60 (>=60 mL/min/1.73m^2) BUN/Creatinine Ratio 23.0 Glucose 221 H (74-106) mg/dL Calcium 9.4 (8.5-10.1) mg/dL Imaging Data Chest x-ray: Radiologist's impression: ITS Impressions Chest X-Ray 11/17/24 09:13 IMPRESSION: No acute process. Impression dictated by: Bro Gill M.D. 11/17/2024 9:52 AM Dictation Location: [employer] Electronically authenticated by: [id number] Y Date: 11/17/2024 09:52 ECG Data Attestation: I personally reviewed and interpreted this ECG as follows: (EKG on my interpretation shows sinus rhythm with a rate of 102. No acute findings.) Discharge Plan Discharge Chief Complaint: Shortness of Breath/Dyspnea Clinical Impression: Asthma with acute exacerbation Patient Disposition: Home, Self-Care Time of Disposition Decision: 10:00 Condition: Good Mode of Transportation: Private Vehicle Prescriptions / Home Meds: New prednisone 10 mg tablet See Rx Instructions .ROUTE .COMPLEX Qty: 30 0RF Rx Instructions: 4 by mouth daily for three days then 3 by mouth daily for three days then 2 by mouth daily for three days then 1 by mouth daily for three days azithromycin [Zithromax Z-Ron] 250 mg tablet See Rx Instructions .ROUTE .COMPLEX Qty: 6 0RF Rx Instructions: For 250 mg dose pack: take 500 mg today (day 1), then 250 mg for 4 days (days 2-5) albuterol sulfate 90 mcg/actuation HFA aerosol inhaler 2 inh inhalation Q4H PRN (Reason: shortness of breath or wheezing) Qty: 8.5 0RF No Action glimepiride 1 mg tablet 1 mg PO DAILY liothyronine 5 mcg tablet 10 mcg PO DAILY metformin 500 mg tablet 500 mg PO BID pantoprazole [Protonix] 40 mg tablet,delayed release (DR/EC) 40 mg PO DAILY simvastatin 20 mg tablet 20 mg PO DAILY venlafaxine 150 mg capsule,extended release 24hr 150 mg PO DAILY venlafaxine 75 mg capsule,extended release 24hr 75 mg PO DAILY albuterol 90 mcg/actuation aerosol 90 mcg inhalation .qid prn cholecalciferol (vitamin D3) [Vitamin D3] 50 mcg (2,000 unit) capsule 2,000 unit PO DAILY pantoprazole [Protonix] 40 mg tablet,delayed release (DR/EC) 40 mg PO BID 42 Days Qty: 90 1RF pioglitazone 15 mg tablet olanzapine 2.5 mg tablet Print Language: Slovenian Instructions: Asthma (ED), How to Use a Metered-Dose Inhaler (ED) Additional Instructions: Return to the emergency department if symptoms worsen. Referrals: Isaiah Terrell MD [Primary Care Provider, Family Practice] - 1 week
[2024-11-17] MEDS: ALBUTEROL SULFATE 2.5 MG/3 ML VIAL NEB IH ×2 (09:26→10:17)
[2024-11-17 09:34] LABS: Hematocrit 40.2 % (36.0-48.0); Hemoglobin 13.4 g/dL (12.0-16.0); Immature Granulocytes Abs Auto 0.03 10^3/uL (0.00-0.03); Immature Granulocytes Pct Auto 0.6 % (0.0-0.5); Lymphocytes Absolute Auto 0.9 10^3/uL (1.2-3.8); Mean Corpuscular HGB Conc 33.3 g/dL (29.9-35.2); Mean Corpuscular Hemoglobin 29.6 pg (26.7-34.0); Mean Corpuscular Volume 88.9 fL (81.0-99.0); Platelet Count 127 10^3/uL (150-450); Red Blood Count 4.52 10^6/uL (4.20-5.40); White Blood Count 4.8 10^3/uL (4.0-11.0)
[2024-11-17] MEDS: METHYLPREDNISOLONE SOD SUCC PF 125 MG/2 ML VIAL IVP (09:34)
[2024-11-17 09:36] LABS: Anion Gap 14.2; Blood Urea Nitrogen 17.0 mg/dL (7.0-18.0); Calcium 9.4 mg/dL (8.5-10.1); Carbon Dioxide 26.7 mmol/L (21.0-32.0); Chloride 105 mmol/L (98-107); Estimated GFR (African America >60 (>=60 mL/min/1.73m^2); Estimated GFR (Non-African Ame >60 (>=60 mL/min/1.73m^2); Glucose 221 mg/dL (74-106); Potassium 3.9 mmol/L (3.5-5.1); Sodium 142 mmol/L (136-145)
--- NOTE | 2024-11-17 10:07 | RESP.RT ---
Placed pt on room air
== END 2024-11-17 10:22 | disposition home or self-care (01) ==
PROVIDERS: Emergency Provider Emergency Medicine; PCP Family Medicine
DX: J45.901 Unspecified asthma with (acute) exacerbation (principal); Z87.891 Personal history of nicotine dependence
CPT/HCPCS: 36415; 71045; 80048; 85025; 93005; 94640; 96374; 99285; J2919

== ENCOUNTER 2025-02-01 07:38 | Outpatient (OUT) | payer OTHER, SELFPAY ==
--- OUTSIDE RECORDS SUMMARY | 2025-02-01 07:41 | XMS_ITS | CCD ---
Author Organization [facility] Care Team Providers Care Hopper Attendant Name Role Phone DR AMADO TERRELL Attending [...] Unavailable MD Amado Terrell Primary Care Provider [phone] DO Elio Blackman Attending Provider [phone] Amado Tererll Primary Care Physician MD Maxime Encinas Attending Provider Self, Referral Attending Provider Unavailable DO Elio Blackman Referring Provider [phone] Maxime ENCINAS Attending Unavailable Maxime ENCINAS Attending Unavailable Amado Terrell Referring Unavailable Maxime ENCINAS Attending Unavailable Amado Terrell MD Primary Care Provider [phone] ELIO BLACKMAN Attending Unavailable Self, Referral Attending Provider Unavailable Amado Terrell MD Primary Care Provider [phone] Amado Terrell Primary Care Unavailable Self, Referral Attending Unavailable [place], Referral Admitting Unavailable Amado Terrell MD Primary Care Provider [phone] Allergies Allergy Classification Reported Allergen(s) Allergy Type Date of Onset Reaction(s) Facility (2 sources) Aspirin; Translations: [aspirin] Drug Allergy 5 [facility] (2 sources) Aspirin; Translations: [aspirin] Drug Allergy Anaphylaxis (disorder) [facility] [place] (4 sources) Aluminum aspirin Drug Allergy 3 [facility] Medications Current Medications Medication Drug Class(es) Dates Sig (Normalized) Sig (Original) [id number] 200 actuat albuterol 0.09 mg/actuat metered dose inhaler (4 sources) beta2-Adrenergic Agonist Start: 09-13-2023 take 2 puff(s) by inhalation every four hours albuterol HFA 90 mcg/act inhaler Inhale 2 puffs every 4 (four) hours if needed 09/13/2023 Active cariprazine 1.5 mg oral capsule (4 sources) Atypical Antipsychotic take 1 capsule by mouth in the morning Vraylar 1.5 MG capsule Take 1 capsule by mouth in the morning. Active cholecalciferol 0.05 mg oral capsule (4 sources) Vitamin D Start: 09-03-2022 take 1 capsule by mouth in the morning cholecalciferol (Vitamin D-3) 50 MCG (1999) capsule Take 2,000 Units by mouth in the morning. 09/03/2022 Active glimepiride 4 mg oral tablet (8 sources) Sulfonylurea Start: 10-28-2024 take 1 tablet by mouth before mealtime glimepiride (Amaryl) 4 MG tablet Take 4 mg by mouth in the morning. Take before meals. 10/28/2024 Active Start: 09-20-2023 End: 11-14-2024 glimepiride (Amaryl) 1 MG ta blet Take 1 mg by mouth 09/20/2023 11/14/2024 Discontinued (Dose adjustment) levothyroxine sodium 0.05 mg oral tablet (4 sources) l-Thyroxine Start: 10-28-2024 take 1 tablet by mouth before mealtime levothyroxine (Synthroid, Levoxyl) 50 MCG tablet Take 50 mcg by mouth in the morning. Take before meals. 10/28/2024 Active liothyronine sodium 0.005 mg oral tablet (6 sources) l-Triiodothyronin e Start: 10-03-2023 take 1 tablet by mouth once daily liothyronine (Cytomel) 5 MCG tablet Take 5 mcg by mouth Daily 10/03/2023 Active Start: 10-03-2023 take 2 tablets by mo uth once daily liothyronine 5 mcg Tab 10 mcg = 2 tab(s), Oral, Daily, Refills(s) 0 Start Date: 10/03/23 Status: Ordered metFORMIN hydrochloride 500 mg oral tablet (6 sources) Biguanide Start: 01-08-2021 take 1 tablet by mouth twice daily metformin 500 mg Tab 500 mg = 1 tab(s), Oral, BID, Refills(s) 0 Start Date: 01/08/21 Status: Ordered OLANZapine 2.5 mg oral tablet (6 sources) Atypical Antipsychotic Start: 09-20-2023 take 1 tablet by mouth twice daily ZyPREXA 2.5 mg Tab 2.5 mg = 1 tab(s), Oral, BID, Refills(s) 0 Start Date: 09/20/23 Status: Ordered pantoprazole 40 mg delayed release oral tablet (6 sources) Proton Pump Inhibitor Start: 09-20-2023 Protonix 40 mg Tab-DR 40 mg = 1 tab(s), Oral, BID, increased to BID 11/15/23, Refills(s) 0 Start Date: 09/20/23 Status: Ordered Start: 09-20-2023 take 1 tablet by [facility] once daily Protonix 40 mg Tab-DR 40 mg = 1 tab(s), Oral, Daily, Refills(s) 0 Start Date: 09/20/23 Status: Ordered pioglitazone 15 mg oral tablet (4 sources) Peroxisome Proliferator Receptor alpha Agonist, Peroxisome Proliferator Receptor gamma Agonist, Thiazolidinedione Start: 11-11-2024 take 1 tablet by mouth once daily Actos 15 MG tablet Take 15 mg by mouth Daily 11/11/2024 Active simvastatin 20 mg oral tablet (6 sources) HMG-CoA Reductase Inhibitor Start: 10-04-2022 take 1 tablet by mouth at bedtime simvastatin (Zocor) 20 MG tablet Take 20 mg by mouth at bedtime. 10/04/2022 Active 24 hr venlafaxine 75 mg extended release oral capsule (12 sources) Serotonin and Norepinephrine Reuptake Inhibitor Start: 10-03-2023 take 1 capsule by mouth once daily venlafaxine XR (Effexor XR) 75 MG 24 hr capsule Take 75 mg by mouth Daily 10/25/2023 Active Start: 10-04-2022 take 1 capsule by [facility] every twenty-four hours in the morning venlafaxine [...] mental disorders or infectious disease) (5 sources) Patient encounter status; Translations: [Encounter for screening mammogram for malignant neoplasm of breast] Onset: 5 11-14-2024 Episodic Other upper respiratory disease (2 [...] Test Name Value Interpretation Reference Range Facility MM screening mammo BI w/CADo n 12-02-2024 MM screening mammo BI w/CAD [facility] [address] [place], [place] [id number] Mammography Report Signed Patient: Justin Abarca MR#: [id number] : 1965 Acct:[id number] Age/Sex: 59 / F Adm Date: 12/02/24 Loc: [place] Room: Type: REG CLI Attending Dr: Referral Self Ordering Provider: SELF,REFERRAL Date of Service: 12/02/24 Procedure(s): MM screening mammo BI w/CAD Accession Number(s): ([id number]) MM/MM screening mammo BI w/CAD: SCREENING Copies to: Amado Terrell MD SELF,REFERRAL CLINICAL DATA: Screening for malignancy. SCREENING MAMMOGRAM - FULL FIELD DIGITAL WITH TOMOSYNTHESIS AND CAD COMPARISON:Priors dating back to 2019 Tomosynthesis craniocaudal and mediolateral oblique views of both breasts were obtained using low- dose digital technique. This examination was reviewed with the aid of CAD. The breast parenchyma is heterogeneously dense. There are no dominant masses, typically malignant calcifications or architectural distortion. There has been no significant interval change. MM/MM screening mammo BI w/CAD IMPRESSION: NO MAMMOGRAPHIC EVIDENCE OF MALIGNANCY. ROUTINE FOLLOW-UP IS RECOMMENDED IN ONE YEAR. RESULT CODE: 1 Negative DENSITY CODE: 3 (approximately 51-75% glandular) The breasts are heterogeneously dense, which may obscure small masses. FOLLOW UP: 1YR The false-negative rate of mammography is approximately 10-percent. Management of a palpable abnormality must be based on clinical grounds. Patient was entered into a reminder system with a target due date for the next mammogram. Impression dictated by: Darnell Norris M.D. 12/02/2024 4:29 PM Dictation Location: [facility] Dictated By: Darnell Norris MD 12/02/24 1627 Signed By: 12/02/24 1629 Normal [facility] Mammography reportOrdered By : Darnell Norris on 12-02-2024 Diagnostic imaging study [facility] [address] [place] [address] Mammography Report Signed Patient: Justin Abarca MR#: [id number] : 1965 Acct:[id number] Age/Sex: 59 / F Adm Date: 5 Loc: [place] Room: Type: REG CLI Attending Dr: Maria R Simmons Ordering Provider: SELF,REFERRAL Date of Service: 12/02/24 Procedure(s): MM screening mammo BI w/CAD Accession Number(s): ([id number]) MM/MM screening mammo BI w/CAD: SCREENING Copies to: Amado Terrell MD SELF,REFERRAL ~ CLINICAL DATA: Screening for malignancy. SCREENING MAMMOGRAM - FULL FIELD DIGITAL WITH TOMOSYNTHESIS AND CAD COMPARISON:Priors dating back to 2019 Tomosynthesis craniocaudal and mediolateral oblique views of both breasts were obtained using low-dose digital technique. This examination was reviewed with the aid of CAD. The breast parenchyma is heterogeneously dense. There are no dominant masses, typically malignant calcifications or architectural distortion. There has been no significant interval change. MM/MM screening mammo BI w/CAD IMPRESSION: NO MAMMOGRAPHIC EVIDENCE OF MALIGNANCY. ROUTINE FOLLOW-UP IS RECOMMENDED IN ONE YEAR. RESULT CODE: 1 Negative DENSITY CODE: 3 (approximately 51-75% glandular) The breasts are heterogeneouslydense, which may obscure small masses. FOLLOW UP: 1YR The false-negative rate of mammography is approximately 10-percent. Management of a palpable abnormality must be based on clinical grounds. Patient was entered into a reminder system with a target due date for the next mammogram. Impression dictated by: Darnell Norris M.D. 12/02/2024 4:29 PM Dictation Location: [facility] Dictated By: Darnell Norris MD 12/02/241626 Signed By: 12/02/24 1629 [facility] Work Phone: Ambulatory Visit Summaryon 0 12-01-2023 Ambulatory Visit [...] choosing us for your care. Harjeet Darnell [facility] General Surgery Office/Clini c Noteon 12-01-2023 General [...] SARS-CoV-2 (COVID-19) mRNA-1273 vaccine 07/27/2020 Recorded Normal [facility] Comment on above: Result Comment: Elec tronically Signed By: ZIGGY ROWAN, Maxime Vo\hebert\Date and Time Signed: 12/01/23 13:29 EDT Insurance Correspondenceon 0 11-07-2023 Insurance Correspondence [id number]#1.00TIFF [facility] Consent for Procedure/Surger yon 10-05-2023 Consent for Procedure/Surgery [id number]#1.00TIFF [facility] Physician Referralon 024 Physician Referral [id number]#1.00TIFF Normal [facility] Facesheeton 10-04-2023 Facesheet [id number]#1.00TIFF Normal [facility] Ambulatory Visit Summaryon 0 10-03-2023 Ambulatory Visit [...] for choosing us for your care. Normal [facility] Physician Referralon 024 Physician Referral [id number]#1.00TIFF Normal [facility] Physician Referral [id number]#1.00TIFF Normal [facility] T4 [facility] 02-09-2022 T4 [Mass/Vol] 6.2 ug/dL Normal 4.5-12.0 [facility] Comment on above: Performed By: #### T 4LC #### [facility] [address] [address] [address] Christiane Blancas CBC AUTO DIFFon 02-08-2022 BASO # 0.1 103/ul Normal 0.0-0.1 [facility] Comment on above: Performed By: #### C BC #### [facility] [address] [address] [address] Christiane Blancas Basophils/100 WBC (Bld) 1.6 % Normal 0.2-2.0 [facility] Comment on above: Performed By: #### C BC #### [facility] [address] [address] [address] Christiane Blancas EO # 0.1 103/ul Normal 0.0-0.7 [facility] Comment on above: Performed By: #### C BC #### [facility] [address] [place] [address] Dr. Christiane Blancas Eosinophils/100 WBC (Bld) 1.6 % Normal 0.9-7.0 [facility] Comment on above: Performed By: #### C BC #### [facility] [address] [place] [address] Dr. Christiane Blancas Erythrocyte distribution width (RBC) [Ratio] 15.7 % Critically high 11.0-15.0 [facility] Comment on above: Performed By: #### C BC #### [facility] [address] [place] [address] Dr. Christiane Blancas Hematocrit (Bld) [Volume fraction] 39.6 % Normal 36.0-48.0 [facility] Comment on above: Performed By: #### C BC #### [facility] [address] [place] [address] Dr. Christiane Blancas Hemoglobin (Bld) [Mass/Vol] 12.1 g/dL Normal 12.0-16.0 [facility] Comment on above: Performed By: #### C BC #### [facility] [address] [place] [address] Dr. Christiane Blancas IG # 0.02 10e3/ul Normal 0.00-0.03 [facility] Comment on above: Performed By: #### C BC #### [facility] [address] [place] [address] Dr. Christiane Blancas IG % 0.3 % Normal 0.0-0.5 [facility] Comment on above: Performed By: #### C BC #### [facility] [address] [place] [address] Dr. Christiane Blancas LYMPH # 1.7 103/ul Normal 1.2-3.8 [facility] Comment on above: Performed By: #### C BC #### [facility] [address] [place] [address] Dr. Christiane Blancas Lymphocytes/100 WBC (Bld) 30.4 % Normal 20.5-60.0 [facility] Comment on above: Performed By: #### C BC #### [facility] [address] [place] [address] Dr. Christiane Blancas MANUAL DIFF REQ NO Normal [facility] Comment on above: Performed By: #### C BC #### [facility] [address] [place] [address] Dr. Christiane Blancas MCH (RBC) [Entitic mass] 25.5 pg Critically low 26.7-34.0 [facility] Comment on above: Performed By: #### C BC #### [facility] [address] [place] [address] Dr. Christiane Blancas MCHC (RBC) [Mass/Vol] 30.6 g/dL Normal 29.9-35.2 [facility] Comment on above: Performed By: #### C BC #### [facility] [address] [place] [address] Dr. Christiane Blancas MCV (RBC) [Entitic vol] 83.4 fL Normal 81.0-99.0 [facility] Comment on above: Performed By: #### C BC #### [facility] [address] [place] [address] Dr. Christiane Blancas MONO # 0.4 103/ul Normal 0.3-0.8 [facility] Comment on above: Performed By: #### C BC #### [facility] [address] [place] [address] Dr. Christiane Blancas Monocytes/100 WBC (Bld) 7.5 % Normal 1.7-12.0 [facility] Comment on above: Performed By: #### C BC #### [facility] [address] [place] [address] Dr. Christiane Blancas NEUT # 3.4 103/ul Normal 1.4-6.5 [facility] Comment on above: Performed By: #### C BC #### [facility] [address] [address] [address] Christiane Blancas Neutrophils/100 WBC (Bld) 58.6 % Normal 43.0-75.0 [facility] Comment on above: Performed By: #### C BC #### [facility] [address] [address] [address] Christiane Blancas Platelet mean volume (Bld) [Entitic vol] 9.9 fL Normal 9.5-13.5 [facility] Comment on above: Performed By: #### C BC #### [facility] [address] [place] [address] Dr. Christiane Blancas PLT 251 103/ul Normal 150-450 [facility] Comment on above: Performed By: #### C BC #### [facility] [address] [place] [address] Dr. Christiane Blancas RBC 4.75 106/ul Normal 4.20-5.40 [facility] Comment on above: Performed By: #### C BC #### [facility] [address] [place] [address] Dr. Christiane Blancas WBC 5.7 103/ul Normal 4.0-11.0 [facility] Comment on above: Performed By: #### C BC #### [facility] [address] [place] [address] Dr. Christiane Blancas FREE T3on 02-08-2022 FREE T3 2.37 pg/mlL Normal 2.18-3.98 [facility] Comment on above: Performed By: #### F T3, CMP, LIPID, TSH #### [facility] [address] [place] [address] Dr. Christiane Blancas GLYCOHEMOGLOBIN A1Con 2021 ADA RECOMMENDATION SEE BELOW Normal [facility] Comment on above: Result Comment: ADA RECOMMENDED LIMIT 4.0 - 6.0 ADA THERAPEUTIC TARGET < 7.0 ACTION SUGGESTED > 7.0 Performed By: #### A 1C #### [facility] [address] [place] [address] Dr. Christiane Blancas Glucose [Mass/Vol] 123 mg/dL Normal [facility] Comment on above: Performed By: #### A 1C #### [facility] [address] [address] [address] Christiane Blancas HbA1c (Bld) [Mass fraction] 5.9 % Normal 4.5-6.2 [facility] Comment on above: Performed By: #### A 1C #### [facility] [address] [address] [address] Christiane Blancas LIPID PROFILEon 02-08-2022 CHOL-HDL RATIO NORM SEE BELOW Normal [facility] Comment on above: Result Comment: 3.3 - 4.4 LOW RISK 4.4 - 7.1 AVERAGE RISK 7.1 - 11.0 MODERATE RISK >11.0 HIGH RISK Performed By: #### F T3, CMP, LIPID, TSH #### [facility] [address] [address] [address] Christiane Blancas Cholesterol [Mass/Vol] 226 mg/dL Critically high <=200 [facility] Comment on above: Performed By: #### F T3, CMP, LIPID, TSH #### [facility] [address] [address] [address] Christiane Blancas Cholesterol in HDL [Mass/Vol] 36 mg/dL Critically low 40-60 [facility] Comment on above: Performed By: #### F T3, CMP, LIPID, TSH #### [facility] [address] [address] [address] Christiane Blancas Cholesterol in LDL [Mass/Vol] 150.6 mg/dL Normal [facility] Comment on above: Performed By: #### F T3, CMP, LIPID, TSH #### [facility] [address] [address] [address] Christiane Blancas Cholesterol.total/C holesterol in HDL [Mass ratio] 6.3 {ratio} Normal [facility] Comment on above: Performed By: #### F T3, CMP, LIPID, TSH #### [facility] [address] [address] [address] Christiane Blancas HDL NORMAL > or = 60 mg/dl - LO W CARDIOVASCULAR RISK <40 mg/dl - HIGH CARDIOVASCULAR RISK Normal [facility] Comment on above: Performed By: #### F T3, CMP, LIPID, TSH #### [facility] [address] [address] [address] Christiane Blancas LDL CALC NORMAL SEE BELOW Normal [facility] Comment on above: Result Comment: <100 mg/dl OPTIMAL 100 - 129 mg/dl NEAR OR ABOVE OPTIMAL 130 - 159 mg/dl BORDERLINE HIGH 160 - 189 mg/dl HIGH >190 mg/dl VERY HIGH Performed By: #### F T3, CMP, LIPID, TSH #### [facility] [address] [address] [address] Christiane Blancas Triglyceride [Mass/Vol] 197 mg/dL Critically high <=150 [facility] Comment on above: Performed By: #### F T3, CMP, LIPID, TSH #### [facility] [address] [address] [address] Christiane Blancas VLDL CALC 39.4 mg/dL Normal [facility] Comment on above: Performed By: #### F T3, CMP, LIPID, TSH #### [facility] [address] [address] [address] Christiane Blancas PROF 14(COMP METB)on 022 Albumin [Mass/Vol] 3.8 g/dL Normal 3.4-5.0 [facility] Comment on above: Performed By: #### F T3, CMP, LIPID, TSH #### [facility] [address] [address] [address] Christiane Blancas Albumin/Globulin [Mass ratio] 1.2 {ratio} Normal [facility] Comment on above: Performed By: #### F T3, CMP, LIPID, TSH #### [facility] [address] [address] [address] Christiane Blancas ALP [Catalytic activity/Vol] 66 U/L Normal 46-116 [facility] Comment on above: Performed By: #### F T3, CMP, LIPID, TSH #### [facility] [address] [address] [address] Christiane Blancas ALT [Catalytic activity/Vol] 44 U/L Normal 14-59 [facility] Comment on above: Performed By: #### F T3, CMP, LIPID, TSH #### [facility] [address] [address] [address] Christiane Blancas Anion gap [Moles/Vol] 13.8 mmol/L Normal [facility] Comment on above: Performed By: #### F T3, CMP, LIPID, TSH #### [facility] [address] [address] [address] Christiane Blancas AST [Catalytic activity/Vol] 26 U/L Normal 15-37 [facility] Comment on above: Performed By: #### F T3, CMP, LIPID, TSH #### [facility] [address] [address] [address] Christiane Blancas Bilirubin [Mass/Vol] 0.4 mg/dL Normal 0.2-1.0 [facility] Comment on above: Performed By: #### F T3, CMP, LIPID, TSH #### [facility] [address] [place] [address] Dr. Christiane Blancas Calcium [Mass/Vol] 8.9 mg/dL Normal 8.5-10.1 [facility] Comment on above: Performed By: #### F T3, CMP, LIPID, TSH #### [facility] [address] [place] [address] Dr. Christiane Blancas Chloride [Moles/Vol] 107 mmol/L Normal 98-107 [facility] Comment on above: Performed By: #### F T3, CMP, LIPID, TSH #### [facility] [address] [address] [address] Christiane Blancas CO2 [Moles/Vol] 27.1 mmol/L Normal 21.0-32.0 [facility] Comment on above: Performed By: #### F T3, CMP, LIPID, TSH #### [facility] [address] [place] [address] Dr. Christiane Blancas Creatinine [Mass/Vol] 0.92 mg/dL Normal 0.55-1.02 [facility] Comment on above: Performed By: #### F T3, CMP, LIPID, TSH #### [facility] [address] [place] [address] Dr. Christiane Blancas EGFR-AF UKRAINIAN >60 Normal >=60 [facility] Comment on above: Performed By: #### F T3, CMP, LIPID, TSH #### [facility] [address] [place] [address] Dr. Christiane Blancas EGFR-NON AF UKRAINIAN >60 Normal >=60 [facility] Comment on above: Performed By: #### F T3, CMP, LIPID, TSH #### [facility] [address] [address] [address] Christiane Blancas Globulin (S) [Mass/Vol] 3.2 g/dL Normal [facility] Comment on above: Performed By: #### F T3, CMP, LIPID, TSH #### [facility] [address] [place] [address] Dr. Christiane Blancas Glucose [Mass/Vol] 165 mg/dL Critically high 74-106 T [facility] Comment on above: Performed By: #### F T3, CMP, LIPID, TSH #### [facility] [address] [place] [address] Dr. Christiane Blancas Potassium [Moles/Vol] 3.9 mmol/L Normal 3.5-5.1 [facility] Comment on above: Performed By: #### F T3, CMP, LIPID, TSH #### [facility] [address] [place] [address] Dr. Christiane Blancas Protein [Mass/Vol] 7.0 g/dL Normal 6.4-8.2 [facility] Comment on above: Performed By: #### F T3, CMP, LIPID, TSH #### [facility] [address] [place] [address] Dr. Christiane Blancas Sodium [Moles/Vol] 144 mmol/L Normal 136-145 [facility] Comment on above: Performed By: #### F T3, CMP, LIPID, TSH #### [facility] [address] [place] [address] Dr. Christiane Blancas Urea nitrogen [Mass/Vol] 12.0 mg/dL Normal 7.0-18.0 [facility] Comment on above: Performed By: #### F T3, CMP, LIPID, TSH #### [facility] [address] [address] [address] Christiane Blancas Urea nitrogen/Creatinine [Mass ratio] 13.0 mg/mg Normal [facility] Comment on above: Performed By: #### F T3, CMP, LIPID, TSH #### [facility] [address] [address] [address] Christiane Blancas TSHon 02-08-2022 TSH 1.752 uIU/mL Normal 0.358-3.740 [facility] Comment on above: Performed By: #### F T3, CMP, LIPID, TSH #### [facility] [address] [address] [address] Christiane Blancas VITAMIN D 25 OHon 02-08-2022 VIT D 25-OH 21.5 ng/mL Normal [facility] Comment on above: Performed By: #### V ITAD #### [facility] [address] [place] [address] Dr. Christiane Blancas VIT D RANGES SEE BELOW Normal [facility] Comment on above: Result Comment: <20 ng/mL Vit D deficient 20 - <30 ng/mL Vit D insufficient 30 - 100 ng/mL Vit D sufficient >100 ng/mL Potential Toxicity Performed By: #### V ITAD #### [facility] [address] [place] [address] Dr. Christiane Blancas Covid-19 PCR (CVDTB)on 08-13 SARS-CoV-2 (COVID-19) RNA CHRIS+probe Ql (Unsp spec) Not detected Normal NOT DETECTED [facility] Comment on above: Result Comment: This test is not yet approved or cleared by the [place] FDA. When there are no FDA-approved or cleared tests available, and other criteria are met, FDA can make tests available under an emergency access mechanism called an Emergency Use Authorization (EUA). The EUA for this test is supported by the [facility] of Health and Human Service's (HHS's) declaration [...] SARS-CoV-2. Performed By: #### C VDTB #### [facility] [address] [place] [address] Dr. Christiane Blancas INFLUENZA A AND B AGon 08-23 [facility] SEE BELOW Normal [facility] Comment on above: Result Comment: Nega tive for Flu A protein angiten. Infection due to Flu A cannot be ruled out. Flu A angiten in the sample may be below the detection limit of the test. Performed By: #### I NFLUAB #### [facility] [address] [place] [address] Dr. [facility] SEE BEL[facility] Normal [facility] Comment on above: Result Comment: Nega tive for Flu B protein antigen. Infection due to Flu B cannot be ruled out. Flu B antigen in the sample may be below the detection limit of the test. Performed By: #### I NFLUAB #### [facility] [address] [place] [address] Dr. Christiane Blancas INFLUENZA A AG Negative Normal NEGATIVE SEE COMMENT [facility] Comment on above: Performed By: #### I NFLUAB #### [facility] [address] [place] [address] Dr. Christiane Blancas INFLUENZA B AG Negative Normal NEGATIVE SEE COMMENT [facility] Comment on above: Performed By: #### I NFLUAB #### [facility] [address] [place] [address] Dr. Christiane Blancas INTERNAL CONTROLS Within Normal Limits Normal Wi thin Normal Limits The [facility] Comment on above: Performed By: #### I NFLUAB #### [facility] [address] [place] [address] Dr. Christiane Blancas Vital Signs Date Time Vital Sign Value Performing Clinician Faci lity 11-14-2024 15:52-0400 Body mass index (BMI) [Ratio] 26.68 kg/m2 Elio Visci DO Work Phone: [facility] 11-14-2024 15:52-0400 Body weight 69.4 kg Elio Visci DO Work Phone: [facility] 11-14-2024 15:52-0400 Diastolic blood pressure 70 mm[Hg] Elio Visci DO Work Phone: [facility] 11-14-2024 15:52-0400 Systolic blood pressure 122 mm[Hg] Elio Visci DO Work Phone: [facility] 10-03-2023 13:55-0400 Blood Pressure Location Maxime NILL [facility] 10-03-2023 13:55-0400 Diastolic blood pressure 80 mm[Hg] Maxime NILL [facility] 10-03-2023 13:55-0400 Heart rate 72 /min Maxime NILL [facility] 10-03-2023 13:55-0400 Systolic blood pressure 122 mm[Hg] Maxime NILL [facility] Encounters Encounter Date Encounter Type Care Provider Facility Start: 01-31-2025 End: 01-31-2025 Bamboo flowsheet Karen Ottoniel Sarmiento DO Work Phone: [facility] 230 Start: 01-31-2025 End: 01-31-2025 Bamboo flowsheet Karen M Konradznick DO Work Phone: [facility] 230 Start: 01-20-2025 End: 01-20-2025 Telephone encounter Karen Sarmiento DO Work Phone: [facility] 230 Start: 12-02-2024 End: 12-02-2024 Patient encounter procedure [facility] Work Phone: Start: 12-02-2024 End: 12-02-2024 ambulatory Amado Terrell MD Work Phone: [facility] Work Phone: Start: 11-14-2024 End: 11-14-2024 Patient encounter status Elio Ellis Visci DO Work Phone: [facility] Start: 11-14-2024 End: 11-14-2024 Periodic preventive med est patient 40-64yrs Elio Ellis Visci DO Work Phone: [facility] Comment on above: Encounter for gyneco logical examination with abnormal finding (Primary Dx); Encounter for screening mammogram for malignant neoplasm of breast; Screening for malignant neoplasm of cervix; Screening for HPV (human papillomavirus); Vaginal atrophy; Family history of breast cancer; Other constipation Start: 11-14-2024 End: 11-14-2024 ambulatory ELIO BLACKMAN Not Available Start: 12-01-2023 End: 12-01-2023 ambulatory Maxime ENCINAS Facility: [place] Start: 12-01-2023 End: 12-01-2023 Patient encounter procedure Maxime ENCINAS [facility] [place] Start: 11-24-2023 ambulatory Maxime ENCINAS Facility:[facility] [place] Start: 11-23-2023 End: 11-23-2023 ambulatory DO Elio Blackman Work Phone: [facility] Work Phone: Start: 11-23-2023 End: 11-23-2023 Patient encounter procedure DO Elio Blackman Work Phone: [facility] Work Phone: Start: 11-15-2023 End: 11-15-2023 ambulatory MD Maxime Encinas Work Phone: [facility] Work Phone: Start: 11-15-2023 End: 11-15-2023 Departed Referred MD Maxime Encinas Work Phone: [facility] [place] [facility] Start: 11-15-2023 End: 11-15-2023 ambulatory Maxime ENCINAS Facility:CD:[id number] Start: 10-03-2023 End: 10-03-2023 ambulatory Maxime ENCINAS Facility:[facility] Start: 10-03-2023 End: 10-03-2023 Patient encounter procedure Maxime ENCINAS [facility] [place] Start: 11-11-2022 End: 11-11-2022 ambulatory MD Amado Terrell Work Phone: [facility] Work Phone: Start: 11-11-2022 End: 11-11-2022 Patient encounter procedure MD Amado Terrell Work Phone: [facility] Work Phone: Start: 06-29-[address] AMADO TERRELL Facility :[facility] Start: 02-10-2022 Encounter for genera l adult medical examination without abnormal findings DR AMADO TERRELL [facility] Start: 02-08-2022 End: 02-09-[address] AMADO TERRELL Facility:[facility] Start: 02-08-2022 End: 02-09-2022 Encounter for general adult medical examination without abnormal findings DR AMADO TERRELL Facility:[facility] Start: 08-23-2021 End: 08-23-[address] AMADO TERRELL Facility:[facility] Procedures Date Procedure Procedure Detail Performing Clinician Start: 12-02-2024 Screening mammography of bilateral breasts Amado Terrell MD Work Phone: Start: 11-23-2023 End: 11-23-2023 Screening mammography of bilateral breasts DO Elio Blackman Work Phone: Start: 11-15-2023 Esophagogastroduodenoscopy Maxime ENCINAS Start: 11-11-2022 Screening mammography of bilateral breasts MD Amado Terrell Work Phone: Start: 10-20-2021 Microscopic observation [Identifier] in Cervix by Cyto stain Elio Blackman DO Work Phone: Start: 01-27-2021 Colonoscopy Elio Blackman DO Work Phone: Start: 01-27-2021 Colonoscopy Maxime ENCINAS Appendectomy Maxime ENCINAS section Maxime Vilchis section Maxime Vilchis Comment on above: x 2 Plan of Treatment Date Care Activity Detail Author Start: 01-27-2031 Screening for malignant neoplasm of colon [facility] Start: 11-14-2029 Screening for malignant neoplasm of cervix [facility] Start: 01-31-2025 End: 01-31-2025 Patient encounter procedure 01/31/2025 2:15 PM EDT Office Visit [facility] [address] [place] [id number] Karen Sarmiento DO [address] [place] [address] Arrived [facility] 230 Comment on above: Arrived Start: 01-13-2025 Influenza vaccination Influenza Vacc ine (#1) [facility] Start: 11-22-2024 End: 01-15-2026 DBT Breast - bilateral screening Bilateral screening mammogram with tomosynthesis Imaging Routine Encounter for screening mammogram for malignant neoplasm of breast Family history of breast cancer Expected: 11/22/2024, Expires: 01/15/2026 [facility] Comment on above: Expected: 11/22/2024 , Expires: 01/15/2026 Start: 11-22-2024 Screening for malignant neoplasm of breast Mammogram [facility] Start: 10-20-2024 Screening for malignant neoplasm of cervix [facility] Start: 1996 Screening for malignant neoplasm of cervix HPV/Cotest [facility] Start: 1965 Screening for malignant neoplasm of colon [facility] IGP, APT HPV,RFX 16/18,45 IGP, APT HPV,RFX 16/18,45 Lab Routine Screening for malignant neoplasm of cervix Screening for HPV (human papillomavirus) Ordered: 11/14/2024 [facility] Work Phone: Comment on above: Ordered: 11/14/2024 Immunizations Immunization Date Immunization Notes Care Provider Fa mary 05-10-2021 SARS-CoV-2 (COVID-19 ) mRNA-1273 vaccine Maxime NIXL [facility] 09-02-2020 SARS-CoV-2 (COVID-19 ) mRNA-1273 vaccine Maxime NILL [facility] 07-27-2020 SARS-CoV-2 (COVID-19 ) mRNA-1273 vaccine Maxime NILL [facility] Payers Date Payer Category Payer Self-pay [id number] 2022 Medicaid (Managed Care) [employer] [id number] 2022 Medicaid [id number] 1965 Unknown [id number] 1966 Unknown [id number] 1966 Unknown [id number] 1966 Unknown [id number] 1966 Unknown [id number] 1966 Unknown [id number] 727 1966 Unknown [id number] [id number] 1958 Self-pay [id number] 1958 Unknown [id number] Unknown Laurie BC/BS [id number] Unknown [id number] Social History Date Type Detail [facility] Work Phone: Start: 1965 Sex Assigned At Female [facility] [place] Start: 10-26-2022 End: 10-03-2023 Tobacco smoking status Ex-smoker (finding) [facility] Tobacco smoking status Never [facility] Start: 10-26-2022 End: 11-14-2024 Sex Assigned At Female [facility] History of tobacco use Current smoker [...] Start: 10-26-2022 Tobacco Comment >10 years [facility] Start: 11-08-2022 Alcohol Comment caffeine intak e: 3-4 cups per day of coffee [facility] Start: 1965 Sex assigned at Not on file [facility] Work Phone: Sex Female (finding) [facility] Procedure Code Equipment Code Equipment Origin al Text Equipment Identifier Dates 1 each by Other route if needed. Start: 01-31-2022 Functional Status Date Assessment Result Facility 10-03-2023 Functional Status N/A [facility] [place] Telephone encounter Note 01-20-2025 Telephone Encounter - Magalie Ceballos - 01/20/2025 11:09 AM EDT Note Date & Type Note Facility 01-20-2025 Telephone encount er Note Patient's spouse called stating that they know Dr. Farrar and they spoke with him at [facility] a few weeks ago about her needing to be seen with Dr. Karen Sarmiento because of her diabetes. She has been having trouble controlling it and she's on 3 different types of medications. Is this okay to schedule her with Dr. Jones? [facility] Note 01-20-2025 Telephone Encounter - Magalie Ceballos - 01/20/2025 11:09 AM EDT Note Date & Type Note Facility 01-20-2025 Miscellaneous Notes Formattin g of this note might be different from the original. Patient's spouse called stating that they know Dr. Farrar and they spoke with him at [facility] a few weeks ago about her needing to be seen with Dr. Karen Sarmiento because of her diabetes. She has been having trouble controlling it and she's on 3 different types of medications. Is this okay to schedule her with Dr. Jones? documented in this encounter [facility] History of Present illness Narrative 11-14-2024 Elio Blackman, DO - 11/14/2024 3:30 PM EDT Note Date & Type Note Facility 11-14-2024 History of Presen t illness Narrative Images from the original note were not included. Elio Blackman, Obstetrics and Gynecology Justin Abarca 1965 11/14/24 [id number] Yearly Wellness Exam Chief Complaint Patient presents with Gynecologic Exam Pt presents for yearly. Denies breast,bowel,bladder,mechanical assembly problems. Visit Vitals BP 122/70 Wt 153 [...] if needed cholecalciferol (Vitamin D-3) 50 MCG (1999 UT) capsule Take 2,000 Units by mouth in the morning. liothyronine (Cytomel) 5 MCG tablet Take 5 mcg by mouth Daily metFORMIN (Glucophage) 500 MG tablet Take 500 mg by mouth in the morning and 500 mg before bedtime. OLANZapine (ZyPREXA) 2.5 MG tablet Take 1 tablet by mouth in the morning and 1 tablet before bedtime. OneJunk4Junkuch Ultra test strip 1 each by Other [...] 10/20/21- Neg, HPV Neg Mammogram 11/23/23- Neg ([facility] : mother and sister dx breast cancer, [...] palpable. BACK: No obvious scoliosis/kyphosis. 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 Started ag (more content not included)... [facility] Comment on above: Result Comment: Elec tronically Signed By: ZIGGY ROWAN, Maxime Loredo\Date and Time Signed: 10/03/23 14:39 EDT Evaluation + Plan note Note Date & Type Note Facility Evaluation + Plan note No data available for this section [facility] Evaluation note Note Date & Type Note Facility Evaluation note No assessment information availa [facility] Work Phone: Evaluation note Note Date & [...] breast Other constipation documented in this encounter [facility] Hospital Discharge instructions Note Date & Type Note Facility Hospital Discharge instructions No data available for this section [facility] Progress note Note Date & Type Note Facility Progress note No data available for this section [facility] Reason for referral (narrative) Note Date & Type Note Facility Reason for referral (narrative) No reason for referral information available [facility] Work Phone: Summary Purpose Family History No Family History Records Found No data available for this section No data available for this section No Family History Records FoundNo Family History Records FoundNo Family History Records Found Advance Directives Advance Directive Response Recorded Date/ Time Advance Directives No June 20, 2017 4:10pm Chief Complaint and Reason for Visit Chief Complaint Screening Chief Complaint Unknown Chief Complaint Unknown Screening Chief Complaint Admit Date Screening December 02, 2024 4:10 pm Additional Source Comments INFORMATION SOURCE (unrecogn ized section and content) DATE CREATED AUTHOR 06/29/2022 [facility] pital DATE CREATED AUTHOR AUTHOR'S ORGANIZ ATION 12/04/2023 [facility] DATE CREATED AUTHOR AUTHOR'S ORGANIZ ATION 11/17/2024 [facility] EPIC DATE CREATED AUTHOR AUTHOR'S ORGANIZ ATION 12/07/2024 [facility] ysician Group Care Teams (unrecognized sec tion and content) [...] November 23, 2023 End: November 23, 2023 Hopper Attendant Relationship Specialty Start Date End Date Amado Terrell MD PCP - General Family Medicine 10/26/22 Team Status: Inactive Member Role Status Dates Referral Self Attending Provider Active Start: Yoandy hansen 2024 End: December 02, 2024 Amado Terrell MD Primary Care Provider Active Start: December 02, 2024 End: December 02, 2024 Hopper Attendant Relationship Specialty Start Date End Date Amado Terrell MD PCP - General Family Medicine 10/26/22 Hopper Attendant Relationship Specialty Start Date End Date Amado Terrell MD [address] [place] [address] PCP - General Family Medicine 10/26/22 Goals (unrecognized section and content) Goals may be documented in a n alternate section No data available for this sectionGoals may be documented in an alternate sectionGoals may be documented in an alternate section No data available for this sectionGoals may be documented in an alternate section Reason for Visit (unrecogniz ed section and content) Reason Comments Gynecologic Exam Pt presents for year ly. Denies breast,bowel,bladder,mechanical assembly problems. FOR RECORDS PERTAINING TO PATIENTS WHO [...] BE BASED ON THE PRIMARY CLINICAL RECORDS. [facility]. provides no warranty or guarantee of the accuracy or completeness of information in this document.
[2025-02-01 10:13] LABS: Anion Gap 17.1; Blood Urea Nitrogen 15.0 mg/dL (7.0-18.0); Calcium 9.5 mg/dL (8.5-10.1); Carbon Dioxide 24.7 mmol/L (21.0-32.0); Chloride 103 mmol/L (98-107); Estimated GFR (African America >60 (>=60 mL/min/1.73m^2); Estimated GFR (Non-African Ame >60 (>=60 mL/min/1.73m^2); Glucose 288 mg/dL (74-106); Potassium 3.8 mmol/L (3.5-5.1); Sodium 141 mmol/L (136-145)
== END 2025-02-01 07:39 | disposition home or self-care (01) ==
LOC: LAB 07:39
PROVIDERS: PCP Family Medicine; Visit Provider Family Medicine
DX: E11.65 Type 2 diabetes mellitus with hyperglycemia (principal)
CPT/HCPCS: 36415; 80048; 83525; 84681; 86337; 86341

== ENCOUNTER 2025-05-05 13:54 | Outpatient (OUT) | payer OTHER, SELFPAY ==
--- OUTSIDE RECORDS SUMMARY | 2025-05-05 03:46 | XMS_ITS ---
Author Organization [facility] [place] Address [address] [place] [address] Care Team Providers Care Enrollment Advisor Name Role Phone Ezra Terrell Primary Care Provider [phone] REASON FOR VISIT UTI Medications Medication SIG (Take, Route, Frequency, Duration) Notes Start Date End Date Status Macrobid 100 MG 1 capsule with food Orally every 12 hrs; Duration: 10 days 05/05/2025tive Encounters Encounter Location Date Provider Diagnosis [facility] [address] [place] [address] 05/05/2025 Ezra Terrell UTI (urinary tract infection) N39.0 Assessments Encounter Date Diagnosis (ICD Code) Assessment Notes Treatment Notes Treatment Clinical Notes Section Notes 05/05/2025 UTI (urinary tract infection) (I CD-10 - N39.0) Plan Of Treatment Medication Medication Name Sig Start Date Stop Date Notes Macrobid 100 MG 1 capsule with food Orally every 12 hrs; Duration: 10 days 05/05/2025 Pending Test Test Name Order Date UA (URINALYSIS, COMPLETE) 05/05/2025 Urine Culture 05/05/2025 URINE MICROSCOPIC ONLY 05/05/2025 Progress Notes * Francia ABARCA EDOB:1965 (59 yo F)Acc No.[id number]:05/05/2025 Patient:?Francia ABARCA :1965???Age:59 Y???Sex:FemalePhone:[phone] Address:[address] [place], [address] * Refills Start Macrobid Capsule, 100 MG, Orally, 20 Capsule, 1 capsule with food, every 12 hrs, 10 days, Refills=0 Subjective: * Chief Complaints: * U TI * Medical History: * Surgical History: * Hospitalization/Major Diagno stic Procedure: * Medications: Objective: * Vitals: * Physical Examination: ??? Assessment: * Assessment: 1.?UTI (urinary tract infection) - N39.0 (Primary)??? Plan: * Treatment: ?LAB: UA (URINALYSIS, COMPLETE) ?LAB: Urine Culture ?LAB: URINE MICROSCOPIC ONLY2.?Others? Start Macrobid Capsule, 100 MG, 1 capsule with food, Orally, every 12 hrs, 10 days, 20 Capsule, Refills 0.?? * Procedure Codes: * true * Date:?Generated for Printing/Faxing/eTransmitting on:?05/05/2025 01:56 PM EST
--- OUTSIDE RECORDS SUMMARY | 2025-05-05 13:56 | XMS_ITS | Clinical Summary ---
Author Organization [facility] Address [address] [place] [address] Care Team Providers [employer] Name Role Phone Isaiah Terrell MD Primary Care Provider [phone] Allergies Active AllergyReactionsCriticalityNoted YumkJpjfezgtEyvlchf94/14/2023 Other Reaction(s): Difficulty Breathing Medications MedicationSigDispense QuantityRefillsLast FilledStart DateEnd DateStatus cholecalciferol (Vitamin D-3) 50 MCG (1999) capsule Take 2,000 Units by mouth in the morning.09/03/2022ctive OneTouch Ultra test strip 1 each by Other route if needed.01/31/2022ctive metFORMIN (Glucophage) 500 MG tablet Take 500 mg by mouth in the morning and 500 mg before bedtime.Active simvastatin (Zocor) 20 MG tablet Take 20 mg by mouth at bedtime.10/04/2022ctive venlafaxine XR (Effexor XR) 150 MG 24 hr capsule Take 150 mg by mouth in the morning.10/04/2022ctive venlafaxine XR (Effexor XR) 75 MG 24 hr capsule Take 75 mg by mouth Daily10/25/2023ctive pantoprazole (ProtoNix) 40 MG EC tablet Take 40 mg by mouth at bedtimeActive OLANZapine (ZyPREXA) 2.5 MG tablet Take 1 tablet by mouth in the morning and 1 tablet before bedtime.Active liothyronine (Cytomel) 5 MCG tablet Take 5 mcg by mouth Daily10/03/2023ctive albuterol HFA 90 mcg/act inhaler Inhale 2 puffs every 4 (four) hours if zogbcl5409/13/2023ctive levothyroxine (Synthroid, Levoxyl) 50 MCG tablet Take 50 mcg by mouth in the morning. Take before meals.5Active pen needle 33G x 4 mm misc Indications:Type 2 diabetes mellitus with hyperglycemia, without long-term current use of insulin (HCC)Injections subcutaneous daily 100 each 5Active insulin lispro protamine-insulin lispro (HumaLOG MIX 50/50 KWIKPEN) (50-50) 100 UNIT/ML injection Indications:Type 2 diabetes mellitus with hyperglycemia, with long-term current use of insulin (HCC)30 units breakfast and 30 units dinner 30 mL 5Active Active Problems ProblemNoted DateDiagnosed DatePure waycelhsrejxxbgbykhz15/19/2025Hypothyroidism 01/31/2025Hiatal hernia with GERD01/31/2025Type 2 diabetes mellitus with hyperglycemia, with long-term current use of ojgweap4301/31/2025 Assessment & Plan (04/03/2025 7:39 PM EST): During the appointment today all pertinent labs, imaging, health maintenance, and glucose readings were reviewed. Encouraged to check blood glucose throughout the day with some fasting and some PP readings. They are to bring their glucose meter/cgm in to all appointments. All of the patients questions, treatment options, and current care plan and goals were discussed. Acopy of this along with pertinent instructions were given to the patient at the end of the appointment. The patient voices understanding of all of this and is to call in between appointments if they have any problems or questions. Francia Abarca is struggling to gain control of their diabetes. I am very concerned for diabetes related complications. , Instructed on the importance of taking insulin before eating. If it has been more than 30-45 min since eating they should not give the meal dose but should just give a correction insulin dose. , Instructions given today include: Insulin instructions and Dietary education. She isto check her bg before breakfast and dinner so I can better adjust her insulin. She is improving her diet but her bg remain significantly elevated. Will increase her insulin to try and improve control. It sounds like she is taking her insulin correctly. Assessment & Plan (03/01/2025 9:10 AM EDT): During the appointment today all pertinent labs, imaging, health maintenance, and glucose readings were reviewed. Encouraged to check blood glucose throughout the day with some fasting and some PP readings. They are to bring their glucose meter/cgm in to all appointments. All of the patients questions, treatment options, and current care plan and goals were discussed. Acopy of this along with pertinent instructions were given to the patient at the end of the appointment. The patient voices understanding of all of this and is to call in between appointments if they have any problems or questions. Francia Abarca is struggling to gain control of their diabetes. I am very concerned for diabetes related complications. , Discussed dietary changes at length. Encouraged to limit simple carbs and focusmore on healthy protein/fat with all meals and snacks. They should also avoid any sugary drinks. , I nstructed on the importance of taking insulin before eating. If it has been more than 30-45 min since eating they should not give the meal dose but should just give a correction insulin dose. , Instructed on the proper insulin injection technique either in the abdomen, upper outer thigh, or back ofthe arm. They are to rotate injection sites to prevent scar tissue. , Instructions given today include: Insulin instructions and Dietary education. I don't think she is making much insulin on her own, her c peptide was ok but her bg was pretty high at that time. I am also not convinced that there is not something else underlying contributing to her elevated bg. Will look into the liver more with a fibroscan. Will change to premixed insulin to get some PP control. Will stop glimepiride when doing this to decrease the risk for hypoglycemia. Assessment & Plan (02/01/2025 5:50 PM EDT): During the appointment today all pertinent labs, imaging, health maintenance, and glucose readings were reviewed. Encouraged to check blood glucose throughout the day with some fasting and some PP readings. They are to bring their glucose meter/cgm in to all appointments. All of the patients questions, treatment options, and current care plan and goals were discussed. Acopy of this along with pertinent instructions were given to the patient at the end of the appointment. The patient voices understanding of all of this and is to call in between appointments if they have any problems or questions. Francia Abarca is struggling to gain control of their diabetes. I am very concerned for diabetes related complications. , Discussed dietary changes at length. Encouraged to limit simple carbs and focusmore on healthy protein/fat with all meals and snacks. They should also avoid any sugary drinks. , Discussed importance of checking blood glucose regularly and bringing them in to their appointment in order for me to better adjust their medications. , Instructed on the proper insulin injection technique either in the abdomen, upper outer thigh, or back of the arm. They are to rotate injection sites to prevent scar tissue. , Instructions given today include: Hypoglycemia management, Insulin instructions, and Dietary education Suspect she either has NAZIA or possibly some underlying cause for her elevated bg. I do have concerns with her [facility] of pancreatic cancer. Will get CT for further evaluation of this. Will start lantus.Stop januvia as she really hasn't seen an improvement from this. Would like to stop glimepiride butcan't yet due to her significantly elevated bg but if she does have NAZIA, glimepiride may cause worsening beta cell function. Will get labs to look for antibodies. Cmkrxghwgntlwc99/19/4758Gwawuk96/19/5840Zetiwry81/19/2025Metabolic dysfunction- associated steatohepatitis (MASH)01/31/2025 Assessment & Plan (04/03/2025 7:38 PM EST): Need to get results of her fibroscan from [facility]. Not sure why GI contacted her about an appt asI haven't even seen the results yet or put a referral in to them. Assessment & Plan (03/01/2025 9:09 AM EDT): Will get fibroscan for further evaluation. I don't have a cbc result at this time so I am not able to calculate a fib-4 score. If she has significant fibrosis or cirrhosis this could be contributing to the difficulty of controlling her bg. Encounters DateTypeDepartmentCare GvlzGilydtqvosp45/21/2025Telephone [facility] [address] [place] [address] Juliann Wagoner LPN Odmjedw6504/03/2025 3:15 PM ESTOffice Visit [facility] [address] [place] [address] Karen Sarmiento, DO Metabolic dysfunction-associated steatotic liver disease (MASLD) (Primary Dx); Type 2 diabetes mellitus with hyperglycemia, with long-term current use of insulin (HCC)04/03/2025amboo flowsheet [facility] [address] [place] [address] Karen Sarmiento, DO 04/03/20254999Mkppff02/17/2025 2:30 PM EDTOffice Visit [facility] [address] [place] [address] Karen Sarmiento, DO Metabolic dysfunction-associated steatotic liver disease (MASLD) (Primary Dx); Type 2 diabetes mellitus with hyperglycemia, with long-term current use of insulin (HCC)02/28/2025amboo flowsheet [facility] [address] [place] [address] Karen Sarmiento, DO 02/28/20259017Aghulv71/06/2025Results Follow-Up [facility] [address] [place] [address] Karen Sarmiento, DO CT abdomen pelvis w IV lcrtjwij67/03/2025 10:30 AM EDTAncillary Procedure [facility] [address] [place] [id number] Type 2 diabetes mellitus with hyperglycemia, without long-term current use of insulin (HCC); Generalized abdominal pain; Weight loss02/14/20256743Bxfcxu80/30/2025Telephone [facility] [address] [place] [address] Karen Sarmiento, DO Medication Adknlkpm98/29/2025bstract [facility] [address] [place] [address] Karen Sarmiento, DO 02/05/2025Results Follow-Up [facility] [address] [place] [address] Karen Sarmiento, DO ALL BASIC METABOLIC PANEL, TB[facility] INSULIN, ALL C-PEPTIDE, Additional followed-up results: bstract [facility] [address] [place] [address] Karen Sarmiento, 02/03/2025bstract [facility] [address] [place] [address] Karen Sarmiento, DO from Last 3 Months Family History Medical HistoryRelationNameCommentsPancreatic cancerBrotherLung cancerFather Breast cancerMotherDiabetesMotherLung cancerMotherBreast cancerSisterBRCA NEG RelationNameStatusCommentsBrotherAliveFatherDeceasedMotherAliveSisterAlive Social History Tobacco UseTypesPacks/DayYears UsedDateSmoking Tobacco: FormerCigarettes Smokeless Tobacco: Never Comments:>10 years Alcohol UseStandard Drinks/WeekCommentsNever0 (1 standard drink = 0.6 oz pure alcohol)caffeine intake: 3-4 cups per day of coffeeAUDIT-CAnswerDate RecordedQ1: How often do you have a drink containing alcohol?Never10/26/2022Q2: How many drinks containing alcohol do you have on a typical day when you are drinking? Patient does not drink10/26/2022Q3: How often do you have six or more drinks on one occasion?Never10/26/2022HQ-2AnswerDate RecordedPatient Health Questionnaire-2 Jxttm39706/03/2024CommentsNoSex and Gender Information ValueDate RecordedSex Assigned at BirthNot on fileLegal VfnPguyuu43/15/2023 7:12 PM EDTGender IdentityNot on fileSexual OrientationNot on file Last Filed Vital Signs Vital SignReadingTime TakenCommentsBlood Xnifryhi570/7011 3:17 PM EST Ohcvi1847/ 3:17 PM KLNGziaznozawp36.6 ??C (97.8 ??F)04/03/2025 3:17 PM ESTRespiratory Rate--Oxygen Ybyblfjvht12%04/03/2025 3:17 PM ESTInhaled Oxygen Concentration--Abiahf62.5 kg (162 lb)04/03/2025 3:17 PM VMJZydnxz748.3 cm (5' 3.5 )04/03/2025 3:17 PM ESTBody Mass Index28.25106/03/2024 3:17 PM EST Plan of Treatment DateTypeDepartmentCare Team (Latest Contact Info)Pstvpgrchfr39/23/2025 4:30 PM ESTOffice Visit [facility] [address] [place] [phone] Karen Sarmiento, [address] [place] [address] Procedures Procedure NamePriorityDate/TimeAssociated DiagnosisCommentsFIBROSCANRoutine 03/25/2025 3:50 PM EST Metabolic dysfunction-associated steatotic liver disease (MASLD) CT ABDOMEN PELVIS W IV XJWYJCYSGcdequq22/03/2025 11:39 AM EDT Type 2 diabetes mellitus with hyperglycemia, without long-term current use of insulin (HCC) Generalized abdominal pain Weight loss from Last 3 Months Results * FIBROSCAN (03/25/2025 3:50 PM EST) Narrative Authorizing ProviderResult TypeResult StatusAlllawanda Sarmiento DOI XR PROCEDURESFinal ResultPerforming OrganizationAddressCity/State/ZIP CodePhone Number [facility] [address] [place] [address], * CT abdomen pelvis w IV contrast (02/14/2025 11:39 AM EDT)Anatomical Region LateralityModalityBody, Pelvis, AbdomenComputed TomographySpecimen (Source) Anatomical Location / LateralityCollection Method / VolumeCollection Time Received Time02/17/2025 1:22 PM EDT Impressions 02/17/2025 1:29 PM EDT Hepatic steatosis. Constipation. All CT scans at this facility use dose modulation, iterative reconstruction, and/or weight based dosing when appropriate to reduce radiation dose to as low as reasonably achievable. ELECTRONICALLY SIGNED BY: Kurt Guzmán MD Narrative 02/17/2025 1:[address] of the Abdomen and Pelvis intravenous contrast medium History: Abdominal pain, weight loss, uncontrolled diabetes. Technical Factors: CT imaging of the abdomen and pelvis were obtained and formatted as 5 mm contiguous axial images from the domes of the diaphragm to the symphysis pubis. ??Sagittal and coronal reconstructions were also obtained. Comparison: None. Findings: Lower chest: Cardiac size normal. No pericardial effusion. No coronary artery calcifications. Lung bases are clear. Liver: ??Normal in size, shape, and decreased in attenuation. Bile Ducts: ??Normal in caliber. Gallbladder: ??No stones or wall thickening. Pancreas: ??Normal without masses, cysts, ductal dilatation or calcification. Spleen: ??Normal in size without masses or calcifications. ??No splenules. Kidneys: ??Normal in size and enhancement. ??No hydronephrosis, masses, or stones. Adrenals: ??Normal. Small bowel: ??Normal in caliber. Appendix: Not visualized. Colon: ??Normal in caliber. Copious stool throughout colon. Peritoneum: ??No ascites, free air, or fluid collections. Vessels: ??Aorta normal in course and caliber. ?? Portal vein, splenic vein, superior mesenteric vein are patent. Lymph nodes: ?? Retroperitoneal: ??No enlarged retroperitoneal lymph nodes. Mesenteric: ??No enlarged mesenteric lymph nodes. Pelvic: No enlarged pelvic lymph nodes. Ureters: Normal in course and caliber. No calcifications. Bladder: No wall thickening. Reproductive organs: No pelvic masses. Tubal ligation clips. Abdominal Wall: ??No hernia identified. No diastasis of rectus musculature. ?? No edema or masses. Bones: ??No bone lesions. No degenerative changes. No post operative changes. Procedure Note Kurt Guzmán MD - 02/17/2025 CT of the Abdomen and Pelvis intravenous contrast medium History: Abdominal pain, weight loss, uncontrolled diabetes. Technical Factors: CT imaging of the abdomen and pelvis were obtained and formatted as 5 mm contiguous axial images from the domes of the diaphragm to the symphysispubis. Sagittal and coronal reconstructions were also obtained. Comparison: None. Findings: Lower chest: Cardiac size normal. No pericardial effusion. No coronaryartery calcifications. Lung bases are clear. Liver: Normal in size, shape, and decreased in attenuation. Bile Ducts: Normal in caliber. Gallbladder: No stones or wall thickening. Pancreas: Normal without masses, cysts, ductal dilatation orcalcification. Spleen: Normal in size without masses or calcifications. No splenules. Kidneys: Normal in size and enhancement. No hydronephrosis, masses, orstones. Adrenals: Normal. Small bowel: Normal in caliber. Appendix: Not visualized. Colon: Normal in caliber. Copious stool throughout colon. Peritoneum: No ascites, free air, or fluid collections. Vessels: Aorta normal in course and caliber. Portal vein, splenic vein,superior mesenteric vein are patent. Lymph nodes: Retroperitoneal: No enlarged retroperitoneal lymph nodes. Mesenteric: No enlarged mesenteric lymph nodes. Pelvic: No enlarged pelvic lymph nodes. Ureters: Normal in course and caliber. No calcifications. Bladder: No wall thickening. Reproductive organs: No pelvic masses. Tubal ligation clips. Abdominal Wall: No hernia identified. No diastasis of rectus musculature. No edema or masses. Bones: No bone lesions. No degenerative changes. No post operative changes. IMPRESSION: Hepatic steatosis. Constipation. All CT scans at this facility use dose modulation, iterativereconstruction, and/or weight based dosing when appropriate to reduceradiation dose to as low as reasonably achievable. ELECTRONICALLY SIGNED BY: Kurt Guzmán MD Authorizing ProviderResult TypeResult StatusKaren Sarmiento [facility] CT PROCEDURESFinal Result from Last 3 Months Insurance Care Teams Team MemberRelationshipSpecialtyStart DateEnd Date Isaiah Terrell MD [address] [place] [address] [facility]26/22
--- OUTSIDE RECORDS SUMMARY | 2025-05-05 13:57 | XMS_ITS | Patient Health Record ---
Author Organization The [facility] in [place] Address [address] [place] [address] Care Team Providers Care Sales Representative Wire Rope Name Role Phone Ezra Terrell Primary Care Provider Luana Whitt Unavailable [phone] Allergies Allergen (clinical drug ingredient) Drug/Non Drug Allergy documented on EMR Reaction Allergy Type Onset Date Status aspirin Aspirin anaphylaxis Drug Allergy Active Results Component Value Reference Range Notes UA DIP NONAUTO WO MICRO (810 02) - IN OFFICE (Not yet reviewed by provider) Interpretation: Performing Lab: Notes/Report: COLOR light yellow PTVUMYMucyfpXZNOMIC7549ZRPKEMNOSquiIFFCAMzqnNBIOWUVA GRAVITY1.142MNLUNakyHC7 PROTEINnegUROBILINOGENnegNITRITEnegLEUKOCYTE ESTERASEnegCBC AUTO DIFF Reviewed date:10/27/2024 12:07:43 PM Interpretation: Performing Lab: Notes/Report: [facility] ,White Blood Count5.24.0-11.0 10 3/uLRed Blood Count5.114.20-5.40 10 6/uL Bfyhabthdq63.012.0-16.0 g/zGBhfxthcdyz74.036.0-48.0 %Mean Corpuscular Vamwyv87.1 81.0-99.0 fLMean Corpuscular Ndtknqyanp61.426.7-34.0 pgMean Corpuscular HGB Conc 34.129.9-35.2 g/dLRed Cell Distribution Width12.311.0-15.0 %Platelet Wevhu265 150-450 10 3/uLMean Platelet Sxewpc25.99.5-13.5 fLNeutrophils Percent Auto60.1 43.0-75.0 %Lymphocytes Percent Auto25.020.5-60.0 %Monocytes Percent Auto9.71.7- 12.0 %Eosinophils Percent Auto3.80.9-7.0 %Basophils Percent Auto1.00.2-2.0 % Immature Granulocytes Pct Auto0.40.0-0.5 %Neutrophils Absolute Auto3.21.4-6.5 10 3/uLLymphocytes Absolute Auto1.31.2-3.8 10 3/uLMonocytes Absolute Auto0.50.3-0.8 10 3/uLEosinophils Absolute Auto0.20.0-0.7 10 3/uLBasophils Absolute Auto0.10.0- 0.1 10 3/uLImmature Granulocytes Abs Auto0.020.00-0.03 10 3/uLPerforming Lab:see noteML - [facility] LBFREE T3 Reviewed date:10/27/2024 12:07:43 PM Interpretation: Performing Lab: Notes/Report: [facility] ,Free T32.212.18-3.98 pg/mLPerforming Lab:see note - [facility] LB GLYCOHEMOGLOBIN A1C Reviewed date:10/27/2024 12:07:43 PM Interpretation: Performing Lab: Notes/Report: [facility] ,Glycohemoglobin A1C11.54.5-6.2 % ADA RECOMMENDED LIMIT 4.0 - 6.0 ADA THERAPEUTIC TARGET < 7.0 ACTION SUGGESTED > 7.0 Estimated Average Hsddotg792Vqmdexpwfx Lab:see noteML - [facility] LB IRON Reviewed date:10/27/2024 12:07:43 PM Interpretation: Performing Lab: Notes/Report: [facility] ,Iron72.050.0-170.0 ug/dLPerforming Lab:see note - [facility] LB LIPID PROFILE Reviewed date:10/27/2024 12:07:43 PM Interpretation: Performing Lab: Notes/Report: [facility] ,Jsusdfvvzxqie751<=150 mg/xAAcdcmxvskye464<=200 mg/dLHDL Bbzkhhzyavj1468-23 mg/dL > or =60 mg/dl - LOW CARDIOVASCULAR RISK <40 mg/dl - HIGH CARDIOVASCULAR RISK LDL Cholesterol Apxcsuvwfr34.0 <100 mg/dl OPTIMAL 100-129 mg/dl NEAR OR ABOVE OPTIMAL 130-159 mg/dl BORDERLINE HIGH 160-189 mg/dl HIGH >190 mg/dl VERY HIGH VLDL AYKFUTGPYLB27.4Chol HDL Ratio5.0 3.3 - 4.4 LOW RISK 4.4 - 7.1 AVERAGE RISK 7.1 - 11.0 MODERATE RISK >11.0 HIGH RISK Performing Lab:see [facility] LBPROF 14(COMP METB) Reviewed date:10/27/2024 12:07:43 PM Interpretation: Performing Lab: Notes/Report: [facility] ,Tfzaal105207-856 mmol/LPotassium4.03.5-5.1 mmol/AWqcsnhmf30192-623 mmol/LCarbon Coksqwz88.221.0-32.0 mmol/LAnion Gap17.6Bvskgld74215-215 mg/dLBlood Urea Uafqbdfd88.07.0-18.0 mg/dLCreatinine0.750.55-1.02 mg/dLEstimated GFR ( Cady>60>=60 mL/min/1.73m 2Estimated GFR (Non- Codie>60>=60 mL/min/1.73m 2BUN Creatinine Ratio22.6Rtnynwk5.58.5-10.1 mg/dLBilirubin Total0.50.2-1.0 mg/dL Aspartate Amino Ylsvsmmipxv7647-45 U/LAlanine Uxabrlifurrtjtlp9945-80 U/L Alkaline Zddldnozwje21031-888 U/LTotal Protein7.46.4-8.2 g/dLAlbumin Level3.9 3.4-5.0 g/dLGlobulin3.5Albumin Globulin Ratio1.1Performing Lab:see note - [facility] LBT4 Reviewed date:10/27/2024 12:07:43 PM Interpretation: Performing Lab: Notes/Report: [facility] ,T4 Thyroxine3.804.80-13.90 ug/dLPerforming Lab:see [facility] LBTSH Reviewed date:10/27/2024 12:07:43 PM Interpretation: Performing Lab: Notes/Report: [facility] ,Thyroid Stimulating Hormone1.2070.358-3.740 uIU/mLPerforming Lab:see noteML - [facility] LBCBC AUTO DIFF Reviewed date:11/17/2024 01:41:23 PM Interpretation: Performing Lab: Notes/Report: [facility] ,White Blood Count4.84.0-11.0 10 3/uLRed Blood Count4.524.20-5.40 10 6/uL Cebmoshxbg78.412.0-16.0 g/sGHufxouhwcd33.236.0-48.0 %Mean Corpuscular Pssrgh46.9 81.0-99.0 fLMean Corpuscular Atdevdfwbf57.626.7-34.0 pgMean Corpuscular HGB Conc 33.329.9-35.2 g/dLRed Cell Distribution Width13.111.0-15.0 %Platelet Gkhxn427 150-450 10 3/uLMean Platelet Qonqre65.39.5-13.5 fLNeutrophils Percent Auto63.3 43.0-75.0 %Lymphocytes Percent Auto18.620.5-60.0 %Monocytes Percent Auto13.01.7- 12.0 %Eosinophils Percent Auto3.70.9-7.0 %Basophils Percent Auto0.80.2-2.0 % Immature Granulocytes Pct Auto0.60.0-0.5 %Neutrophils Absolute Auto3.11.4-6.5 10 3/uLLymphocytes Absolute Auto0.91.2-3.8 10 3/uLMonocytes Absolute Auto0.60.3-0.8 10 3/uLEosinophils Absolute Auto0.20.0-0.7 10 3/uLBasophils Absolute Auto0.00.0- 0.1 10 3/uLImmature Granulocytes Abs Auto0.030.00-0.03 10 3/uLPerforming Lab:see noteML - [facility] LBPROF CHEM 8 (BAS METB) Reviewed date:11/17/2024 01:41:23 PM Interpretation: Performing Lab: Notes/Report: [facility] ,Onyoqb046469-888 mmol/LPotassium3.93.5-5.1 mmol/PQfbkoddk38670-581 mmol/LCarbon Pbxooue37.721.0-32.0 mmol/LAnion Gap14.6Exxteuh92300-609 mg/dLBlood Urea Njgjkysj55.07.0-18.0 mg/dLCreatinine0.740.55-1.02 mg/dLEstimated GFR ( Cady>60>=60 mL/min/1.73m 2Estimated GFR (Non- Codie>60>=60 mL/min/1.73m 2BUN Creatinine Ratio23.7Jyvlfbh8.48.5-10.1 mg/dLPerforming Lab:see noteML - [facility] LBXR chest 1V Reviewed date:11/17/2024 01:41:23 PM Interpretation: Performing Lab: Notes/Report: Source Facility: [facility]-[address] [place] [address] XRay Report Signed Patient: JUSTIN PUTNAM MR#: [id number] : 1965 Acct:[id number] Age/Sex: 58 / F ADM Date: 11/17/24 Loc: ER Attending Dr: Ordering Physician: America Graf M.D. Date of Service: 11/17/24 Procedure(s): XR chest 1V Accession Number(s): [id number] cc: Isaiah Terrell M.D.; America Graf M.D. [place] [address] Patient Name: JUSTIN PUTNAM MRN: [id number] date: 1965 Sex: F Assigned Patient Location: ER Current Patient Location: ER Accession/Order Number: [id number] Exam Date: 11/17/2024 09:51 Report Date: 11/17/2024 09:52 At the request of: AMERICA GRAF MD Procedure: XR chest 1V Plain film chest Single view HISTORY: Cough and shortness of breath COMPARISON: 03/02/2019 FINDINGS: SUPPORT DEVICES: None POSTSURGICAL CHANGES: None HEART: Within normal limits PULMONARY SHANA: Within normal limits MEDIASTINUM: Unremarkable LUNGS AND PLEURA: No acute lung process, pleural effusion or pneumothorax identified. BONY STRUCTURES: Intact ADDITIONAL FINDINGS None XR/XR chest 1V IMPRESSION: No acute process. Impression dictated by: Bro Gill M.D. 11/17/2024 9:52 AM Dictation Location: [place] [address] Electronically authenticated by: [id number] Y Date: 11/17/2024 09:52 Dictated By: Bro Gill D.O. Signed By: 11/17/2454 DD/ 1 TD/TT: Local Delivery Driver:MAMMOGRAM, SCREENING Reviewed date:12/03/2024 09:04:09 AM Interpretation:Normal Performing Lab: Notes/Report: NormalINSULIN Reviewed date:02/02/2025 06:28:24 PM Interpretation: Performing Lab: Notes/Report: [facility] ,Gpfbwuq15.82.6-24.9 uIU/mL Performed at: [address] [id number] Respiratory Manager: Huan Hernandez PhD, Phone: [phone] Performing Lab:see [facility] LBLAB TESTING Reviewed date:02/04/2025 03:12:14 PM Interpretation: Performing Lab: Notes/Report: [id number] ANTIPANCREATIC ISLET CELLS [facility] ,Miscellaneous TestCOMMENT. Test Ordered: [id number] Antipancreatic Islet Cells Antipancreatic Islet Cells Negative Reference Range: Neg:<1:1 Performed at: [address] [id number] Respiratory Manager: Allegra Borges MD, Phone: [phone] Performed at: [address] [id number] Respiratory Manager: Huan Hernandez PhD, Phone: [phone] Performing Lab:see [facility] LBC-Peptide, Serum Reviewed date:02/02/2025 06:28:24 PM Interpretation: Performing Lab: Notes/Report: [facility] ,C-Peptide, Serum4.01.1-4.4 ng/mLC-Peptide reference interval is for fasting patients.Performing Lab:see [facility] LBInsulin Antibodies Reviewed date:02/09/2025 09:00:06 PM Interpretation: Performing Lab: Notes/Report: [facility] ,Insulin Antibodies<5.0. uU/mL This test is also known as insulin autoantibody or IAA. This test was developed and its performance characteristics determined by [facility]. It has not been cleared or approved by the Food and Drug Administration. Reference Range: <5.0 Negative > or = 5.0 Positive Performed at: [facility] [address] [place] [id number] Respiratory Manager: Nancy Yanes MD, Phone: [phone] Performing Lab:see note - [facility] LBGAD-65 Autoantibody Reviewed date:02/05/2025 05:40:57 PM Interpretation: Performing Lab: Notes/Report: [facility] ,ABEL-65 Autoantibody<5.00.0-5.0 U/mL Performed at: [address] [id number] Respiratory Manager: Allegra Borges MD, Phone: [phone] Performing Lab:see note - [facility] LBPROF CHEM 8 (BAS METB) Reviewed date:02/01/2025 03:09:05 PM Interpretation: Performing Lab: Notes/Report: [facility] ,Yzrqnx095464-058 mmol/LPotassium3.83.5-5.1 mmol/VPoltuvxn81287-517 mmol/LCarbon Ppzgsls59.721.0-32.0 mmol/LAnion Gap17.3Qyolcli90132-473 mg/dLBlood Urea Lbefquke18.07.0-18.0 mg/dLCreatinine0.850.55-1.02 mg/dLEstimated GFR ( Cady>60>=60 mL/min/1.73m 2Estimated GFR (Non- Codie>60>=60 mL/min/1.73m 2BUN Creatinine Ratio17.0Dgrybhl1.58.5-10.1 mg/dLPerforming Lab:see note - [facility] LBECG 12 lead Reviewed date:11/18/2024 08:32:45 PM Interpretation: Performing Lab: Notes/Report: Source Facility: [facility]-[address] [place] [address] [place] [address] Electrocardiograph Report Signed Patient: JUSTIN PUTNAM MR#: [id number] : 1965 Acct:[id number] Age/Sex: 58 / F ADM Date: 11/17/24 Loc: ER Attending Dr: Ordering Physician: America Graf M.D. Date of Service: 11/17/24 Procedure(s): ECG 12 lead Accession Number(s): [id number] cc: [facility] Test Date: 2024-11-17 Pat Name: JUSTIN PUTNAM Department: Room: - Gender: Female Base Manager: : 1965 Requested By: 1030 Order Number: [id number] Reading MD: BALTAZAR ALCALA M.D. Measurements Intervals [place] Rate: 102 P: 56 DC: 134 QRS: 77 QRSD: 76 T: -51 QT: 312 QTc: 371 Interpretive Statements 1120 Sinus tachycardia [address] depression 4364 Twave abnormality, possible anterolateral ischemia 4664 Twave abnormality, possible inferior ischemia 9150 abnormal ECG Compared to ECG 03/02/2019 12:24:32 Possible ischemia now present Electronically Signed On 11-18-2024 20:26:52 EDT by BALTAZAR ALCALA M.D. Dictated By: BALTAZAR ALCALA Signed By: 11/18/242026 DD/ 8 TD/TT: Local Delivery Driver: Reason For Referral No Information Medications Medication SIG (Take, Route, Frequency, Duration) Notes Start Date End Date Status OLANZapine 2.5 MG TAKE 1 TABLET BY MOUTH TWICE A DAY; Duration: 90 days ActiveCefdinir 300 MGone capsule Orally BID; Duration: 10 days5Active metFORMIN HCl 500 MGTAKE 1 TABLET BY MOUTH TWICE A DAY WITH A MEAL FOR 90 DAYS; Duration: 90ActiveSimvastatin 20 MGTAKE 1 TABLET BY MOUTH EVERY DAY IN THE EVENING 30 DAYS; Duration: 90 daysActivePantoprazole Sodium 40 MGTAKE 1 TABLET BY MOUTH EVERY EVENING; Duration: 90 daysActiveFerrous Sulfate 325 (65 Fe) MG1 tablet Orally twice daily4ActiveVenlafaxine HCl ER 150 MGTAKE 1 CAPSULE BY MOUTH EVERY DAY; Duration: 90ActiveBlood Glucose Meter -Use glucometer to monitor glucose levels DX E11.9; Duration: 365 days5ActiveTest Strips - use 1 strip via meter daily to monitor glucose level. DX E11.9; Duration: 90 days5ActiveJanuvia 100 MG1 tablet Orally Once a day; Duration: 30 days 5ActiveVitamin CActiveGlimepiride 4 MGTAKE 1 TABLET BY MOUTH EVERY DAY WITH BREAKFAST OR THE FIRST MAIN MEAL OF THE DAY FOR 90 DAYS Orally Once a day; Duration: 30 daysActiveVentolin HFA 108 (90 Base) MCG/ACT2 puff as needed Inhalation every 4 hrs; Duration: 30 xsoeOAT22/01/2024ActiveMacrobid 100 MG1 capsule with food Orally every 12 hrs; Duration: 10 days5Active Levothyroxine Sodium 50 MCG1 tablet in the morning on an empty stomach Orally Once a day; Duration: 30 days5ActiveLancets 33G -Use 1 lancet to poke finger for glucose reading once daily DX E11.9; Duration: 90 days10/28/2024 ActiveVitamin D3 50 MCG (1999 UT)TAKE 1 CAPSULE BY MOUTH EVERY DAY FOR 90 DAYS; Duration: 90ActiveLiothyronine Sodium 5 MCG3 tablet on an empty stomach Orally Once a day; Duration: 90 daysActive Social History Tobacco Use: Social History Observation Description Date Details (start date - stop date) Former Smoker 05/15/1983 - 05/15/1999 Tobacco Use/Smoking Question Answer Notes Patient is a former smoker When did you start smoking?05/15/1983When did you stop smoking?05/15/1999How long has it been since you last smoked?> 10 yearsAlcohol Screen (Audit-C) Question Answer Notes Did you have a drink containing alcohol in the p ast year? No Tomtao7PqorhmhedvdrttMksemcsgPXTXH-V (Standard) Question Answer Notes Did you have a drink containing alcohol in the p ast year? No Rlrhju8FgubmtkazhzengYpmgclpa Problems Problem Type SNOMED Code ICD Code Onset Dates Problem Status W/U Status Risk Notes Problem Hypothyroidism (42038086) Hypothyroidism, unspecified (E03.9) ActiveconfirmedProblemSyncope and collapse (783441631)Syncope and collapse (R55) ActiveconfirmedProblemDiaphragmatic hernia (40039722)Diaphragmatic hernia without obstruction or gangrene (K44.9)ActiveconfirmedProblemFatty liver (890804814)Fatty (change of) liver, not elsewhere classified (K76.0)Active confirmedProblemBlood chemistry abnormal (713789496)Other specified abnormal findings of blood chemistry (R79.89)ActiveconfirmedProblemFatigue (56510108) Fatigue (R53.83)ActiveconfirmedProblemAsthma (336127128)Asthma (J45.909)Active confirmedProblemGastroesophageal reflux disease (066173380)GERD (gastroesophageal reflux disease) (K21.9)ActiveconfirmedProblemAnxiety (04918337)Anxiety (F41.9)ActiveconfirmedProblemVertigo (786767331)Vertigo (R42) ActiveconfirmedProblemBipolar 1 disorder (807175222)Bipolar 1 disorder (F31.9) ActiveconfirmedProblemInsomnia (571349021)Insomnia (G47.00)Activeconfirmed ProblemMigraine (17389606)Migraine (G43.909)ActiveconfirmedProblemAllergic rhinitis (47259460)Allergic rhinitis (J30.9)ActiveconfirmedProblemWell adult (162266165)Well adult (Z00.00)ActiveconfirmedProblemCholelithiasis (790126949) Cholelithiases (K80.20)ActiveconfirmedProblemConjunctivitis (1531311) Conjunctivitis (H10.9)ActiveconfirmedProblemChronic otitis externa (79132657) Chronic otitis externa of left ear (H60.62)ActiveconfirmedProblem hypercholesterolemia (disorder) (55879662)Hypercholesteremia (E78.00)Active confirmedProblemType II diabetes mellitus without complication (432959930) Diabetes (E11.9)Activeconfirmed Vital Signs Temperature 99.1 degrees Fahrenheit 04/15/2025 Blood pressure rnzfpygtp81 mm Hg04/15/20258624Spgliu01 in04/15/2025lood pressure mm Hg04/15/20259356Ikhyip798.4 lbs12MI28.39 kg/m204/15/2025 Encounters Encounter Location Date Provider Diagnosis [facility] [address] [place] [address] 10/24/2024 Ezra Terrell Well adult Z00.00 [facility] [address] [place] [address] 11/18/2024 Ezra Terrell Acute bronchitis, unspecified organism J20.9 and Diabetes E11.9 [facility] [address] [place] [address] 04/15/2025 Luana Jose Eduardo Dysuria R30.0 [facility] [address] [place] [address] 06/13/2024 Ezra Terrell [facility] [place] [address] 10/16/2024[facility] [place] [address]/[facility] without abnormal findings Z00.00 ; Diabetes E11.9 and Hypothyroidism, unspecified [facility]03.9[facility] [place] [address]/[facility] [place] [address]/10/2024[facility] [place] [address]/[facility] [place] [address]/[facility] [place] [address]/ [facility] [place] [address]/[facility] [facility] [place] [address]/22/2025Doug NidhiUTI (urinary tract infection) N39.0 Assessments Encounter Date Diagnosis (ICD Code) Assessment Notes Treatment Notes Treatment Clinical Notes Section Notes 10/24/2024 Well adult (ICD-10 - Z00.00) 11/18/2024ute bronchitis, unspecified organism (ICD-10 - J20.9)if not better - needs labs including pertussis and mycoplams titers and cxr11/18/2024Diabetes (ICD-10 - E11.9)doubleing the actose - ifnot better - needs jsgzyfb1804/15/2025 Dysuria (ICD-10 - R30.0) defers UA CS orders urine here negative if sx do not improve, worsen, need fu apt 10/27/2024Encounter for general adult medical examination without abnormal findings (ICD-10 - Z00.00)05/05/2025UTI (urinary tract infection) (ICD-10 - N39.0)10/27/2024Diabetes (ICD-10 - E11.9)10/27/2024Hypothyroidism, unspecified (ICD-10 - E03.9) Plan Of Treatment Pending Test Test Name Order Date CMP (COMPLETE METABOLIC PANEL) 3 CMP (COMPLETE METABOLIC PANEL) 4 UA (URINALYSIS, COMPLETE) 05/05/2025 HEMOGLOBIN A1C (GLYCO) 09/12/2023 HEMOGLOBIN A1C (GLYCO) 10/24/2024 HEMOGLOBIN A1C (GLYCO) 02/13/2023 IRON, TOTAL 10/24/2024 IRON, TOTAL 09/12/2023 LIPID PANEL (CHOL/TRIG/HDL/LDL) 09/12/19 24 LIPID PANEL (CHOL/TRIG/HDL/LDL) 02/14/20 23 LIPID PANEL (CHOL/TRIG/HDL/LDL) 10/25/19 25 CBC WITH DIFF (EXP 03/2025) 02/13/2023 CBC WITH DIFF (EXP 03/2025) 09/12/2023 VITAMIN D, 25 LEVEL (TOTAL) 02/13/2023 VITAMIN D, 25 LEVEL (TOTAL) 09/12/2023 UA DIP NONAUTO WO MICRO (26411) - IN OFF ICE 04/15/2025 Urine Culture 05/05/2025 ACUTE HEPATITIS PANEL 09/17/2023 US Liver 09/17/2023 US Pancreas 09/17/2023 US Gallbladder 09/17/2023 URINE MICROSCOPIC ONLY 05/05/2025 THYROID PANEL (T4/TSH/FREE T3) 4 THYROID PANEL [...] Date [employer] [employer] [address] [facility] [place] [address] [id number] Brian Putnamlf - patient is the aqbryma10[place] MED[place] [place] [id number], Rena Self - patient is the hyklhdy15 2023 Medications Administered Medication Instructions Date of Administration Dosage Notes Dexamethasone, 4mg/mL mg8 mg Medical (General) History Medical History History ICD Code Insomnia G47.00 Bipolar 1 disorder F31.9 Fatigue R53.83 Anxiety F41.9 Cholelithiases K80.20 Syncope and collapse R55 Chronic otitis externa of left ear H60.6 2 Diabetes E11.9 Allergic rhinitis J30.9 Asthma J45.909 Hypercholesteremia E78.00 Migraine G43.909 Surgical History Surgery Date(Month/Year) EGD 11/15/23 Colonoscopy 01/27/2021 DELIVERY x2 APPENDECTOMYHospitalization History Reason Date(Month/Year) CHEST PAIN 2008
[2025-05-05 14:30] LABS: Glucose Urine UA NEGATIVE (NEGATIVE)
[2025-05-05 14:53] LABS: Cast Seen? NONE SEEN #/LPF (NONE SEEN); Crystals Seen? None Seen #/HPF (None Seen)
== END 2025-05-05 13:55 | disposition home or self-care (01) ==
LOC: LAB 13:55
PROVIDERS: PCP Family Medicine; Visit Provider Family Medicine
DX: N39.0 Urinary tract infection, site not specified (principal)
CPT/HCPCS: 81001; 87086